=== PATIENT | female | born 1955 | race Two or more races ===

== ENCOUNTER → 2021-05-22 12:55 | Outpatient (BNVA) | payer OTHER, SELFPAY | PROVIDERS: Visit Provider Psychiatry & Neurology Neurology | DX: R13.10 Dysphagia, unspecified (principal); R53.1 Weakness; R20.0 Anesthesia of skin | CPT/HCPCS: 99212 ==

== ENCOUNTER 2021-06-18 16:19 | Outpatient (REF) | payer OTHER, SELFPAY ==
--- NOTE | ~2021-06-18 | MR_ITS ---
EXAMINATION: MRI OF THE BRAIN WITHOUT CONTRAST CLINICAL INFORMATION: History of MS and stroke. COMPARISON: There are no prior studies available for comparison at time of dictation.. TECHNIQUE: MRI of the brain was obtained using routine sequences without contrast. FINDINGS: No diffusion abnormalities are identified to suggest an acute or subacute infarct. No mass effect or midline shift is seen. The ventricles and sulci are mildly commensurately prominent consistent with diffuse volume loss. There are a few scattered foci of hyperintense T2 and FLAIR signal in the periventricular and subcortical white matter which are nonspecific, but are most consistent with chronic microvascular ischemic changes. Demyelination, sequelae of vasculitis or migraine cannot excluded in the correct clinical setting. The corpus callosum has good volume. No extra-axial fluid collections are seen. The brainstem and cerebellum are normal. No pathologic magnetic susceptibility artifact is identified on the gradient refocused acquisition. The craniovertebral junction, marrow signal, and midline structures are normal. There is hyperostosis frontalis interna. The major intracranial flow-voids at the level of the [place] are preserved. There are mildly prominent lymph nodes bilaterally in the neck, which are nonspecific The dural venous sinus flow-voids are maintained. The mastoid air cells are well-aerated. There is mild mucoperiosteal thickening the anterior ethmoid sinuses. MR/MR head/brain wo con IMPRESSION: 1. There are no acute bleeds or territorial infarcts. No masses are demonstrated. 2. There is diffuse volume loss and there are white matter changes as described above..
== END 2021-06-18 16:20 | disposition home or self-care (01) ==
LOC: HO.MRI 16:19
PROVIDERS: Visit Provider Psychiatry & Neurology Neurology
DX: R13.10 Dysphagia, unspecified (principal); R20.0 Anesthesia of skin; R53.1 Weakness
CPT/HCPCS: 70551

== ENCOUNTER 2021-11-28 11:48 | Outpatient (REF) | payer OTHER, SELFPAY ==
--- NOTE | 2021-11-28 08:00 | EMG_ITS ---
Bilateral median and ulnar motor and sensory studies were performed. Bilateral radial sensory studies were performed and paraspinal muscles were tested. IMPRESSION: Mild to moderate bilateral median neuropathy across carpal tunnel. MD KYLE Henao/SONNY / [id number]
== END 2021-11-28 11:49 | disposition home or self-care (01) ==
LOC: HO.NEURO 11:48
PROVIDERS: Visit Provider Psychiatry & Neurology Neurology
DX: R20.0 Anesthesia of skin (principal)
CPT/HCPCS: 95886; 95911

== ENCOUNTER → 2022-03-31 13:30 | Outpatient (BNVA) | payer OTHER, SELFPAY | PROVIDERS: Visit Provider Psychiatry & Neurology Neurology | DX: G43.709 Chronic migraine without aura, not intractable, without status migrainosus (principal); G56.00 Carpal tunnel syndrome, unspecified upper limb | CPT/HCPCS: 99212 ==

== ENCOUNTER → 2022-07-21 09:18 | Outpatient (BNVA) | payer OTHER, SELFPAY | PROVIDERS: Visit Provider Nurse Practitioner Family | DX: G43.709 Chronic migraine without aura, not intractable, without status migrainosus (principal); G56.00 Carpal tunnel syndrome, unspecified upper limb | CPT/HCPCS: 99212 ==

== ENCOUNTER 2022-11-04 14:40 | Outpatient (AMB) | payer OTHER, SELFPAY ==
--- NOTE | 2022-11-04 14:43 | MHC.OFFVIS ---
Intake Vital Signs 11/04/22 14:45 Height 4 ft 11 in Weight 152 lb BMI 30.7 BP 114/78 Blood Pressure Location Rt brachial Position Sitting Pulse 78 Pulse Source Pulse Oximeter Intake Visit Reasons: 3m follow up headache-Confirmed Intake Note: Patient presents for 3 month follow up headache. Patient states. I'm not sleeping at all,I think I need a sleep study because i cant sleep. Allergies Sulfa (Sulfonamide Antibiotics) Allergy (Severe, Verified 11/04/22 14:46) Anaphylaxis Penicillins Allergy (Mild, Verified 11/04/22 14:46) Anaphylaxis Medication List - Last Reconciled 11/04/22 by PENG Thapa albuterol sulfate 90 mcg/actuation 2 puffs inhalation Q6H PRN albuterol sulfate 90 mcg/actuation (Ventolin HFA) 2 puffs inhalation Q6H PRN amitriptyline 10 - 20 mg (1 - 2 x 10 mg) PO BEDTIME 30 days blood sugar diagnostic (Freestyle [employer] strips) As directed cetirizine 10 mg PO diclofenac sodium 1% grams topical dicyclomine 20 mg PO BID PRN duloxetine 60 mg PO DAILY duloxetine 30 mg PO DAILY glimepiride 4 mg PO DAILY insulin glargine (Lantus Solostar U-100 Insulin) units subcut lancets (FreeStyle Lancets) As directed losartan 25 mg PO DAILY magnesium oxide 400 mg PO BEDTIME 30 days omeprazole 20 mg PO BID pen needle, diabetic (BD Ultra-Fine Short Pen Needle) As directed riboflavin (vitamin B2) 400 mg PO DAILY 30 days sumatriptan succinate 50 - 100 mg orally at onset of headache, may repeat in 2 hrs PRN; max 2 tabs per day or 4 tabs/week (may take with Tylenol) 30 days tizanidine 2 mg PO TID PRN [wrist splints As directed] HPI HPI Comments History of Present Illness Details 67-yr-old female presents for f/u visit. Pt reports that she is having difficulty sleeping. She reports difficulty sleeping, snoring, and excessive daytime sleepiness. She is interested in having a sleep study. She continues to have carpal tunnel syndrome- she never rec'd wrist splints. She continues to have some headaches and muscle tension. [facility] Medical History Carpal tunnel syndrome Chronic migraine without aura, not intractable Dysphagia Hearing loss Lumbar spondylosis Numbness Stroke Weakness Surgical History H/O: H/O shoulder surgery H/O breast surgery H/O hernia repair Social History Alcohol intake: never Patient Tobacco Use Status: Current everyday Tobacco user Review of Systems Const All systems reviewed & are unremarkable except as noted in HPI and below Physical Exam Vital Signs: Last Vital Signs Pulse 78 11/04/22 14:45 BP 114/78 11/04/22 14:45 BMI result Body Mass Index 30.7 Const General: cooperative and no acute distress Orientation/consciousness: patient oriented x3 HEENT Head: Yes normocephalic Resp Effort & Inspection: normal respiratory effort and able to speak in complete sentences Neuro General: patient oriented x3, gait normal and CN's II-XI intact bilaterally Cognition (Neuro): normal cognition Motor exam (neuro): 5/5 motor strength present throughout Psych Appearance: grossly normal Mental Status: mental status grossly normal Speech and movement: Normal speech and movement present Affect: normal affect Attitude: cooperative Thought process: Normal thought process present Thought content: Normal thought content present Insight: Good insight present (Psych) Judgement: Good judgement present (Psych) Assessment & Plan Assessment & Plan (1) Snoring: Code(s): R06.83 - Snoring (2) Excessive daytime sleepiness: Code(s): G47.19 - Other hypersomnia (3) Sleep difficulties: Code(s): G47.9 - Sleep disorder, unspecified (4) Chronic migraine without aura, not intractable: Code(s): G43.709 - Chronic migraine without aura, not intractable, without status migrainosus (5) Carpal tunnel syndrome: Code(s): G56.00 - Carpal tunnel syndrome, unspecified upper limb Plan Pt is advised to undergo in-lab PSG to assess for sleep apnea- pt states she is unable to do HST on her own. For migraine prevention: Trial Cyclobenzaprine prn. Amitriptyline 10-20mg qhs. Riboflavin 400mg qam Magnesium 400 mg qhs Previous migraine tx trials: Gabapentin- does not help headaches Migraine tx contraindications: BBs d/t symptomatic asthma dx. For acute migraine tx: Sumatriptan 100mg tab prn. For carpal tunnel syndrome: Again try wrist splints- order printed again for pt to bring to medical supply store. Monitor dysphagia clinically. Work-up has been unremarkable. f/u in 3-4 months or sooner prn. Orders: Orders RT PSG in-lab sleep study 11/04/22 R06.83 - Snoring, G47.9 - Sleep disorder, unspecified, G47.19 - Other hypersomnia Medications: New cyclobenzaprine 10 mg PO BID PRN 60 tabs 1RF muscle spasm 30 days Changed From [wrist splints] As directed 2 ea 0RF carpal tunnel syndrome Bilateral To [wrist splints] As directed 2 ea 0RF carpal tunnel syndrome Bilateral Coding Level of Care Code Est Pt Level 4 (96242) Diagnoses Snoring R06.83 Excessive daytime sleepiness G47.19 Sleep difficulties G47.9 Chronic migraine without aura, not intractable G43.709 Carpal tunnel syndrome G56.00
[2022-11-04 14:45] VITALS: BP 114/78; PULSE 78; BMI 30.7
== END 2022-11-04 15:19 | disposition home or self-care (01) ==
PROVIDERS: Visit Provider Nurse Practitioner Family
DX: R06.83 Snoring (principal); G47.19 Other hypersomnia; G47.9 Sleep disorder, unspecified; G43.709 Chronic migraine without aura, not intractable, without status migrainosus; G56.00 Carpal tunnel syndrome, unspecified upper limb
CPT/HCPCS: 99214

== ENCOUNTER → 2022-11-04 14:40 | Outpatient (BNVA) | payer OTHER, SELFPAY | PROVIDERS: Visit Provider Nurse Practitioner Family | DX: R06.83 Snoring (principal); G47.9 Sleep disorder, unspecified; G47.19 Other hypersomnia; G56.03 Carpal tunnel syndrome, bilateral upper limbs; G43.709 Chronic migraine without aura, not intractable, without status migrainosus | CPT/HCPCS: 99212 ==

== ENCOUNTER → 2022-12-11 19:30 | Outpatient (REF) | payer OTHER, SELFPAY | LOC: HO.SL 19:30 | PROVIDERS: Visit Provider Nurse Practitioner Family | DX: G47.9 Sleep disorder, unspecified (principal); G47.19 Other hypersomnia; R06.83 Snoring | CPT/HCPCS: 95810 ==

== ENCOUNTER → 2022-12-11 22:32 | Outpatient (BNV) | payer OTHER, SELFPAY | PROVIDERS: Visit Provider Psychiatry & Neurology Neurology | DX: R06.83 Snoring (principal); G47.61 Periodic limb movement disorder | CPT/HCPCS: 95810 ==

== ENCOUNTER 2023-11-20 11:38 | Outpatient (AMB) | payer OTHER, SELFPAY ==
--- NOTE | 2023-11-20 11:38 | A.OFFVIS_ITS ---
Vital Signs 11/20/23 11:40 Height 4 ft 10 in Weight 140 lb BMI 29.3 BP 120/72 Blood Pressure Location Rt brachial Position Sitting Intake Visit Reasons: Follow Up Intake Note: Patient presents for follow up. headaches are worst since falling down in september when she was moving to a new apartment. she stated she hit her the back of her head and now has a lot of dizziness. Allergies Sulfa (Sulfonamide Antibiotics) Allergy (Severe, Verified 11/20/23 11:44) Anaphylaxis Penicillins Allergy (Mild, Verified 11/20/23 11:44) Anaphylaxis Medication List - Last Reconciled 11/20/23 by PENG Thapa albuterol sulfate 90 mcg/actuation 2 puffs inhalation Q6H PRN albuterol sulfate 90 mcg/actuation (Ventolin HFA) 2 puffs inhalation Q6H PRN amitriptyline 10 - 20 mg (1 - 2 x 10 mg) PO BEDTIME 30 days blood sugar diagnostic (Freestyle [employer] strips) As directed cetirizine 10 mg PO cyclobenzaprine 10 mg PO BID PRN 30 days diclofenac sodium 1% grams topical dicyclomine 20 mg PO BID PRN duloxetine 60 mg PO DAILY duloxetine 30 mg PO DAILY gabapentin 300 mg PO BEDTIME 30 days glimepiride 4 mg PO DAILY insulin glargine (Lantus Solostar U-100 Insulin) units subcut lancets (FreeStyle Lancets) As directed losartan 25 mg PO DAILY magnesium oxide 400 mg PO BEDTIME 30 days omeprazole 20 mg PO BID pen needle, diabetic (BD Ultra-Fine Short Pen Needle) As directed riboflavin (vitamin B2) 400 mg PO DAILY 30 days sumatriptan succinate 50 - 100 mg orally at onset of headache, may repeat in 2 hrs PRN; max 2 tabs per day or 4 tabs/week (may take with Tylenol) 30 days [wrist splints As directed] HPI Comments Details: 68-yr-old female presents for f/u visit after 1 yr. Pt accompanied by her family. Reviewed in-lab PSG- Dec 2022- no evidnece of sleep apnea. Mild PLMS w/ arousals. Pt states she has mild RLS s/s, but is more worried about a recent fall she hgad. Pt reports she had a fall ~ 2 months ago, she fell backwards while trying to adjust a bureau. She fell straight back and hit elvin back of her head. She immediately had headache, dizziness, some nausea, and low back pain. She is not sure if she had LOC. She did not seek medical attention. Since, she has continued to have headaches, dizziness, and low back pain. She is using the sumatriptan with effect. The dizziness is room spinning dizziness, triggered by rolling over in bed and getting up. She feels her neck is sore and a bit inflamed. Her low back is still sore and has some coldness and pain radiating down the LLE. [facility] Medical History Carpal tunnel syndrome Chronic migraine without aura, not intractable Dysphagia Hearing loss Lumbar spondylosis Numbness Stroke Weakness Surgical History H/O: H/O shoulder surgery H/O breast surgery H/O hernia repair Social History Alcohol intake: never Patient Tobacco Use Status: Current everyday Tobacco user Physical Exam Vital Signs: Last Vital Signs BP 120/72 11/20/23 11:40 BMI result Body Mass Index 29.3 Const General: cooperative and no acute distress Orientation/consciousness: patient oriented x3 Resp Effort & Inspection: normal respiratory effort and able to speak in complete sentences Neuro Other: EOM intact but makes pt feel dizzy. Bilateral posterior cervical tightness and tightness Cervical ROM: slightly limited Left Spurling: elicits posterior and left upper trap discomfort Right Spurling: elicits posterior and left upper trap discomfort Diffuse paraspinal lumbar tightness and tenderness Slow to stand, steady gait General: patient oriented x3 Cranial nerves: Yes CN's II-XII intact bilaterally Cognition (Neuro): normal cognition Deep tendon reflexes (DTR's): Right triceps reflex intensity grade: 2+, Left triceps reflex intensity grade: 2+, Rt Biceps (C5, C6): 2+, Left biceps reflex intensity grade: 2+, Right brachioradialis reflex intensity grade: 2+, Left brachioradialis reflex intensity grade: 2+, Right patellar reflex intensity grade: 2+ and Left patellar reflex intensity grade: 2+ Coordination: [id number] test normal Romberg Test: Negative Psych Appearance: grossly normal Mental Status: mental status grossly normal Speech and movement: Normal speech and movement present Affect: normal affect Attitude: cooperative Assessment & Plan Assessment & Plan (1) Concussion: Comment: s/p fall at home, fell backwards w/ + occipital region head strike w/o known LOC sttaus. Code(s): S06.0XAA - Concussion with loss of consciousness status unknown, initial encounter Category: Medical (2) Vertigo: Code(s): R42 - Dizziness and giddiness Category: Medical (3) Cervicalgia: Code(s): M54.2 - Cervicalgia Category: Medical (4) Chronic migraine without aura, not intractable: Code(s): G43.709 - Chronic migraine without aura, not intractable, without status migrainosus Category: Medical (5) Lumbar spondylosis: Code(s): M47.816 - Spondylosis without myelopathy or radiculopathy, lumbar region Category: Medical Plan For concussion w/ positional vertigo, increased neck pain, and low back pain: Exam is reassuring- no focal neuro deficits. Vestibular eval & tx- order given to pt. Resume Cyclobenzaprine 10mg prn muscle spasm. Resume diclofenac gel prn muscle spasm/pain. OTC warm packs x's 20 minutes prn. Continue current migraine tx regimen. Future considerations: f/u imaging, PT for low back pain. For migraine prevention: Amitriptyline 10-20mg qhs. Riboflavin 400mg qam Magnesium 400 mg qhs Previous migraine tx trials: Gabapentin- did not help headaches Migraine tx contraindications: BBs d/t symptomatic asthma dx. ? For acute migraine tx: Sumatriptan 100mg tab prn. ? For carpal tunnel syndrome: Wrist splints- order printed again for pt to bring to [facility]. ? ? f/u in 6 months or sooner prn. Orders: Orders PT Evaluation and Treatment Today M54.2 - Cervicalgia, R42 - Dizziness and giddiness Medications: Changed From diclofenac sodium 1% topical To diclofenac sodium 1% 4 grams topical QID 30 days PRN 100 grams 3RF muscle spasm/pain Refilled sumatriptan succinate (0.5 - 1 x 100 mg) 50 - 100 mg orally at onset of headache, may repeat in 2 hrs PRN; max 2 tabs per day or 4 tabs/week (may take with Tylenol) 30 days 14 tabs 6RF migraine headache riboflavin (vitamin B2) 400 mg PO DAILY 30 days 30 tabs 6RF magnesium oxide may hold for loose stools 400 mg PO BEDTIME 30 days 30 tabs 6RF amitriptyline 10 - 20 mg (1 - 2 x 10 mg) PO BEDTIME 30 days 30 tabs 3RF cyclobenzaprine 10 mg PO BID 30 days PRN 60 tabs 1RF muscle spasm Coding Level of Care Code Est Pt Level 4 (12255) Diagnoses Concussion S06.0XAA Vertigo R42 Cervicalgia M54.2 Chronic migraine without aura, not intractable G43.709 Lumbar spondylosis M47.816
[2023-11-20 11:40] VITALS: BP 120/72; BMI 29.3
== END 2023-11-20 12:25 | disposition home or self-care (01) ==
PROVIDERS: Visit Provider Nurse Practitioner Family
DX: S06.0XAA Concussion with loss of consciousness status unknown, initial encounter (principal); R42 Dizziness and giddiness; M54.2 Cervicalgia; G43.709 Chronic migraine without aura, not intractable, without status migrainosus; M47.816 Spondylosis without myelopathy or radiculopathy, lumbar region
CPT/HCPCS: 99214

== ENCOUNTER → 2023-11-20 11:38 | Outpatient (BNVA) | payer OTHER, SELFPAY | PROVIDERS: Visit Provider Nurse Practitioner Family | DX: G43.709 Chronic migraine without aura, not intractable, without status migrainosus (principal); R42 Dizziness and giddiness; M54.2 Cervicalgia; M47.816 Spondylosis without myelopathy or radiculopathy, lumbar region; S06.0XAD Concussion with loss of consciousness status unknown, subsequent encounter; W19.XXXD Unspecified fall, subsequent encounter | CPT/HCPCS: 99212 ==

== ENCOUNTER 2024-05-23 10:31 | Outpatient (AMB) | payer OTHER, SELFPAY ==
[2024-05-23 10:40] VITALS: BP 130/80; PULSE 82; O2SAT 96
--- NOTE | 2024-05-23 10:40 | A.OFFVIS_ITS ---
Vital Signs 05/23/24 10:40 Weight 143 lb BP 130/80 Blood Pressure Location Lt brachial Position Sitting Pulse 82 Pulse Source Pulse Oximeter Pulse Oximetry (%) 96 Oxygen Delivery Method Room Air Intake Visit Reasons: 4 mnts f/u appt Intake Note: Patient following referred to [facility] for PT. orders sent 11/24/23 successfully called for notes and they have no record of patient. called patient no respsonse [facility] Integrated Circuit Design Engineer Required: Yes Integrated Circuit Design Engineer Services: Integrated Circuit Design Engineer Present Integrated Circuit Design Engineer Name: Tammie [id number] Accompanied by: Self / Same As Patient Allergies Sulfa (Sulfonamide Antibiotics) Allergy (Severe, Verified 05/23/24 10:41) Anaphylaxis Penicillins Allergy (Mild, Verified 05/23/24 10:41) Anaphylaxis Medication List - Last Reconciled 05/23/24 by PENG Thapa albuterol sulfate 90 mcg/actuation 2 puffs inhalation Q6H PRN albuterol sulfate 90 mcg/actuation (Ventolin HFA) 2 puffs inhalation Q6H PRN amitriptyline 10 - 20 mg (1 - 2 x 10 mg) PO BEDTIME 30 days blood sugar diagnostic (Freestyle In[employer]x strips) As directed cetirizine 10 mg PO cyclobenzaprine 10 mg PO BID PRN 30 days diclofenac sodium 1% 4 grams topical QID PRN 30 days dicyclomine 20 mg PO BID PRN duloxetine 60 mg PO DAILY duloxetine 30 mg PO DAILY gabapentin 300 mg PO BEDTIME 30 days glimepiride 4 mg PO DAILY insulin glargine (Lantus Solostar U-100 Insulin) units subcut lancets (FreeStyle Lancets) As directed losartan 25 mg PO DAILY magnesium oxide 400 mg PO BEDTIME 30 days omeprazole 20 mg PO BID pen needle, diabetic (BD Ultra-Fine Short Pen Needle) As directed riboflavin (vitamin B2) 400 mg PO DAILY 30 days sumatriptan succinate 50 - 100 mg orally at onset of headache, may repeat in 2 hrs PRN; max 2 tabs per day or 4 tabs/week (may take with Tylenol) 30 days [wrist splints As directed] HPI Comments Details: History of Present Illness The patient is a 68-year-old female presenting with postconcussive headache and dizziness. Dizziness symptoms started after the previous fall, but began to worsen 15 days ago, linked with positional changes. Dizziness described as spinning sensation. She has continued to have headaches since the previous fall back in the fall of 2023. Sleep disruption with night-time amitriptyline use. No recent MRI, inquiry about vestibular therapy. Reports blood pressure fluctuations, typically high when headaches worse. Throat irritation/dryness potentially medication-related. History of pancreatitis, but current treatments deemed non-aggravating. Review of Systems - Neurological: Reports dizziness with positional change, sleep disruptions. - Cardiovascular: Reports fluctuations in blood pressure. - Gastrointestinal: Reports throat irritation/dryness potentially due to medication. 11/20/2023, previous HPI: In-lab PSG- Dec 2022- no evidnece of sleep apnea. Mild PLMS w/ arousals. Pt states she has mild RLS s/s, but is more worried about a recent fall she hgad. Pt reports she had a fall ~ 2 months ago, she fell backwards while trying to adjust a bureau. She fell straight back and hit the back of her head. She immediately had headache, dizziness, some nausea, and low back pain. She is not sure if she had LOC. She did not seek medical attention. Since, she has continued to have headaches, dizziness, and low back pain. She is using the sumatriptan with effect. The dizziness is room spinning dizziness, triggered by rolling over in bed and getting up. She feels her neck is sore and a bit inflamed. Her low back is still sore and has some coldness and pain radiating down the LLE. [facility] Medical History (Reviewed 07/21/22 @ 09:48 by Nadiya Spears [facility] [address]) Carpal tunnel syndrome Chronic migraine without aura, not intractable Dysphagia Hearing loss Lumbar spondylosis Numbness Stroke Weakness Surgical History H/O: H/O shoulder surgery H/O breast surgery H/O hernia repair Social History Alcohol intake: never Patient Tobacco Use Status: Current everyday Tobacco user Physical Exam Vital Signs: Last Vital Signs Pulse 82 05/23/24 10:40 BP 130/80 05/23/24 10:40 Pulse Ox 96 05/23/24 10:40 Oxygen Delivery Method Room Air 05/23/24 10:40 Const General: cooperative and no acute distress Orientation/consciousness: patient oriented x3 Resp Effort & Inspection: normal respiratory effort and able to speak in complete s entences Neuro Other: EOM intact but makes pt feel dizzy. Bilateral posterior cervical tightness and tightness Cervical ROM: slightly limited Left Spurling: elicits posterior and left upper trap discomfort Right Spurling: elicits posterior and left upper trap discomfort Diffuse paraspinal lumbar tightness and tenderness Slow to stand, steady gait General: patient oriented x3 Cranial nerves: Yes CN's II-XII intact bilaterally Cognition (Neuro): normal cognition Deep tendon reflexes (DTR's): Right triceps reflex intensity grade: 2+, Left triceps reflex intensity grade: 2+, Rt Biceps (C5, C6): 2+, Left biceps reflex intensity grade: 2+, Right brachioradialis reflex intensity grade: 2+, Left brachioradialis reflex intensity grade: 2+, Right patellar reflex intensity grade: 2+ and Left patellar reflex intensity grade: 2+ Coordination: [id number] test normal Romberg Test: Negative Psych Appearance: grossly normal Mental Status: mental status grossly normal Speech and movement: Normal speech and movement present Affect: normal affect Attitude: cooperative Assessment & Plan Assessment & Plan (1) Postconcussive syndrome: Comment: s/p fall at home, fell backwards w/ + occipital region head strike w/o known LOC status. Code(s): F07.81 - Postconcussional syndrome Category: Medical (2) Concussion: Comment: s/p fall at home, fell backwards w/ + occipital region head strike w/o known LOC status. Code(s): S06.0XAA - Concussion with loss of consciousness status unknown, initial encounter Category: Medical (3) Vertigo: Code(s): R42 - Dizziness and giddiness Category: Medical (4) Cervicalgia: Code(s): M54.2 - Cervicalgia Category: Medical (5) Chronic migraine without aura, not intractable: Code(s): G43.709 - Chronic migraine without aura, not intractable, without status migrainosus Category: Medical (6) Lumbar spondylosis: Code(s): M47.816 - Spondylosis without myelopathy or radiculopathy, lumbar region Category: Medical Plan Discussion Notes I discussed with the patient her symptoms of postconcussive headache and dizziness. We reviewed her concerns regarding positional dizziness, disrupted sleep patterns, and high blood pressure. I recommended an MRI to assess potential changes since the previous scan three years ago, as she has worsening headache and dizziness status post fall with head strike in the fall of 2023. Vestibular therapy for vertigo was discussed, including the possibility of initial symptom worsening. I reviewed her medication regimen, including the use of amitriptyline and sumatriptan, and the potential irritating effect of amitriptyline on the throat. We also discussed the potential for using monthly injections for migraine management. The patient advised on possible medication i nteractions and the continuing management of diabetes and muscle spasm. Patient was informed and verbally consented to the use of an ambient scribe for clinic note documentation during this visit. Plan A repeat MRI is planned to assess any changes from the prior scan. Vestibular therapy suggested for vertigo, with expected initial symptom worsening. Continue amitriptyline and sumatriptan for headache management. Consideration for monthly migraine injections once authorized. Blood pressure control to be monitored, avoiding hypotensive events. Review medication interactions to address throat i rritation. Follow-up in four months. Patient instructions For postconcussive syndrome w/ positional vertigo, increased neck pain, and low back pain: Vestibular eval & tx. Cyclobenzaprine 10mg prn muscle spasm. Diclofenac gel prn muscle spasm/pain. OTC warm packs x's 20 minutes prn. Continue current migraine tx regimen. Future considerations: f/u imaging, PT for low back pain. For migraine prevention: Amitriptyline 10-20mg qhs- can not increase further due to patient already has dry throat. Riboflavin 400mg qam Magnesium 400 mg qhs Start Ajovy 225mg/1.5ml autoinjector- injection 225mg subcutaneously once a month. Potential adverse effects of Ajovy include but are not limited to injection site reactions. Pt advised Ajovy will likely require insurance prior authorization. Ajovy should be refrigerated until 1 hr prior use. Once approved and available patient would like in office injection training . Previous migraine tx trials: Gabapentin- did not help headaches. Migraine tx contraindications: BBs d/t symptomatic asthma dx. ? For acute migraine tx: Sumatriptan 100mg tab prn. ? For carpal tunnel syndrome: Wrist splints- order printed again for pt to bring to [employer] [facility] store. ? Will follow-up upon review of above and patient to follow-up in clinic in 6 months or sooner prn. Orders: Orders MR head/brain wo con 05/23/24 R51.9 - Headache, unspecified, S06.0XAA - Concussion with loss of consciousness status unknown, initial encounter, R42 - Dizziness and giddiness Medications: New pregabalin 75 mg PO BID fremanezumab-[facility] (Ajovy) administer 225mg sc q month 225 mg (1.5 mL) subcut ONCE 1.5 mL 6RF 30 days Discontinued gabapentin Discontinued Reason: Patient no longer taking 300 mg PO BEDTIME 30 days 30 caps 6RF Coding Level of Care Code Est Pt Level 4 (15549) Diagnoses Postconcussive syndrome F07.81 Concussion S06.0XAA Vertigo R42 Cervicalgia M54.2 Chronic migraine without aura, not intractable G43.709 Lumbar spondylosis M47.816
--- OUTSIDE RECORDS SUMMARY | 2024-05-23 12:22 | XMS_ITS | Patient Health Record ---
Author Organization [facility] [place] Address [address] [place] [address] Care Team Providers Care Jewelry Consultant Name Role Phone Raymundo Berman Unavailable [phone] Allergies Allergen (clinical drug ingredient) Drug/Non Drug Allergy documented on EMR Reaction Allergy Type Onset Date Status Penicillin Unknown Drug Allergy Active Substance with sulfonamide structure and antibacterial mechanism of action (substance) Sulfa Antibiotics Unknown Drug Allergy Active Reason For Referral No Information Medications Medication SIG (Take, Route, Frequency, Duration) Notes Start Date End Date Status amLODIPine Besylate 10 MG Oral for 90 Days Active tiZANidine HCl 2 MG Oral for 15 Days Active Dicyclomine HCl 20 MG Oral for 7 Days Active Pregabalin 75 MG TAKE 1 CAPSULE BY [facility] TWICE DAILY Oral for 30 Days Active DULoxetine HCl 60 MG Oral for 30 Days Active Magnesium Oxide -Mg Supplement 400 (240 Mg) MG Oral for 30 Days Active Fluticasone-Salmeterol 100-50 MCG/ACT Inhalation for 90 Days Act jayme Amitriptyline HCl 10 MG TAKE 1 TO 2 TABL ETS BY MOUTH AT BEDTIME DIRECTED Oral for 15 Days Active Lantus SoloStar 100 UNIT/ML Subcutaneous for 53 Days Act jayme Vitamin B50 Complex 08/26/2023 Active NovoLOG 100 UNIT/ML Injection for 30 Days Active Extra Depth Orthopedic Shoes, (1) Pair With (3) Pair Custom Heat Molded Multidensity Innersoles Dx: NIDDM/PVD(E11.51), Hammertoe Foot Deformity(M20.41,M20.42) , Preulcerative Skin Lesion(s)(L85.1) Wear Daily for 365 days Active Omeprazole 20 MG Oral for 90 Days Active traZODone HCl 100 MG Oral for 30 Days Not-Taking Ramelteon 8 MG TAKE 1 TABLET BY KOFI TH EVERY NIGHT AT BEDTIME Oral for 30 Days Active Gabapentin 300 MG TAKE 1 CAPSULE BY MO UTH AT BEDTIME Oral for 30 Days Not-Taking SUMAtriptan Succinate 100 MG Oral for 24 Days Active Acetaminophen 325 MG TAKE 2 TABLETS BY M OUTH EVERY 6 HOURS NEEDED FOR PAIN Oral for 6 Days Active Zolpidem Tartrate 10 MG Oral for 30 Days Active Albuterol Sulfate HFA 108 (90 Base) MCG/ACT Inhalation for 16 Days Active Wixela Inhub 100-50 MCG/ACT Inhalation for 90 Days Activ e Social History Tobacco Use: Social History Observation Description Date Details (start date - stop date) Current Smoker NA - NA Tobacco Use/Smoking Question Answer Notes Are you a: current smoker How many cigarettes a day do you smoke? 6-10 Alcohol Screen Question Answer Notes Did you have a drink containing alcohol in the p ast year? No Points 0 Interpretation Negative Tobacco use other than smoking: Question Answer Notes Are you an other tobacco user? No Problems Problem Type SNOMED Code ICD Code Onset Dates Problem Status W/U Status Risk Notes Problem Acquired hammer toe of right foot (3614258765958 105) Other hammer toe(s) (acquired), right foot (M20.41) Active confirmed Response to treatment,I mprovement Problem Type 2 diabetes mellitus with peripheral angiopathy (600146222) Type 2 diabetes mellitus with diabetic peripheral angiopathy without gangrene (E11.51) Active confirmed Q7(A), Q8(2B), Q9(1B,2C) Problem Acquired hammer toe of left foot (1535161544079 103) Other hammer toe(s) (acquired), left foot (M20.42) Active confirmed Response to treatment,I mprovement Problem Plantar wart (65981042) Plantar wart (B07.0) Active confirmed Vital Signs Height 3lb99cy in 01/13/2024 Weight 149 lbs 01/13/2024 BMI 31.14 kg/m2 01/13/2024 Procedures Procedure Date Ordered Date Performed Result Body Sit e 05315-Inft Destruction, -09/28/2023 N/A 26653-Fgfo Destruction, 1-14 12/09/2023 N/A 37135-UIPIBEC NAIL, 6 OR MORE 01/13/2024 N/A 90339-Zdpl Destruction, 1-14 01/13/2024 N/A 30212-Tgapukvn Plate 01/13/2024 N/A 00379-FNJA SKIN LESIONS, 2 TO 4 01/13/2024 N/A 35505-OLQU SKIN LESIONS, 2 TO 4 11/02/2023 N/A 33938-Gjio Destruction, 1-14 11/02/2023 N/A 03121-OCVIIGB NAIL, 6 OR MORE 11/02/2023 N/A 30715-GUUJ SKIN LESIONS, 2 TO 4 08/26/2023 N/A 66096-Agpx Destruction, 1-14 08/26/2023 N/A 70046-GBBWRPF NAIL, 6 OR MORE 08/26/2023 N/A Encounters Encounter Location Date Provider Diagnosis [address] [address] 08/26/2023 Raymundo Berman Type 2 diabetes mellitus with diabetic peripheral angiopathy without gangrene E11.51 ; Tinea unguium B35.1 ; Pain in right toe(s) M79.674 ; Pain in left toe(s) M79.675 ; Other hammer toe(s) (acquired), left foot M20.42 ; Right foot pain M79.671 ; Other hammer toe(s) (acquired), right foot M20.41 and Plantar wart B07.[address] [address] 09/28/2023 Raymundo Berman Right foot pain M79.671 and Plantar wart B07.[address] [address] 11/02/2023 Raymundo Berman Type 2 diabetes mellitus with diabetic peripheral angiopathy without gangrene E11.51 ; Tinea unguium B35.1 ; Pain in right toe(s) M79.674 ; Pain in left toe(s) M79.675 ; Right foot pain M79.671 ; Plantar wart B07.0 ; Other hammer toe(s) (acquired), right foot M20.41 and Other hammer toe(s) (acquired), left foot M20.42 [place] [id number] [address] 12/09/2023 Raymundo Berman Right foot pain M79.671 and Plantar wart B07.[address] [address] 01/13/2024 Raymundo Berman Type 2 diabetes mellitus with diabetic peripheral angiopathy without gangrene E11.51 ; Tinea unguium B35.1 ; Pain in right toe(s) M79.674 ; Pain in left toe(s) M79.675 ; Right foot pain M79.671 ; Plantar wart B07.0 and Ingrown nail L60.[address] [address] 02/22/2024 Raymundo Berman Assessments Encounter Date Diagnosis (ICD Code) Assessment Notes Treatment Notes Treatment Clinical Notes Section Notes 08/26/2023 Type 2 diabetes mellitus with diabetic peripheral angiopathy without gangrene (ICD-10 - E11.51) 09/28/2023 Plantar wart (ICD-10 - B07.0) 09/28/2023 Right foot pain (ICD-10 - M79.671) 11/02/2023 Tinea unguium (ICD-10 - B35.1) 11/02/2023 Type 2 diabetes mellitus with diabetic peripheral angiopathy without gangrene (ICD-10 - E11.51) Q7(A), Q8(2B), Q9(1B,2C) 12/09/2023 Plantar wart (ICD-10 - B07.0) 12/09/2023 Right foot pain (ICD-10 - M79.671) 01/13/2024 Tinea unguium (ICD-10 - B35.1) 01/13/2024 Type 2 diabetes mellitus with diabetic peripheral angiopathy without gangrene (ICD-10 - E11.51) Q7(A), Q8(2B), Q9(1B,2C) 11/02/2023 Pain in right toe(s) (ICD-10 - M79.674) 01/13/2024 Pain in right toe(s) (ICD-10 - M79.674) 08/26/2023 Tinea unguium (ICD-10 - B35.1) 01/13/2024 Pain in left toe(s) (ICD-10 - M79.675) 11/02/2023 Pain in left toe(s) (ICD-10 - M79.675) 08/26/2023 Pain in right toe(s) (ICD-10 - M79.674) 11/02/2023 Right foot pain (ICD-10 - M79.671) 08/26/2023 Pain in left toe(s) (ICD-10 - M79.675) 01/13/2024 Right foot pain (ICD-10 - M79.671) 08/26/2023 Other hammer toe(s) (acquired), left foot (ICD-10 - M20.42) 11/02/2023 Plantar wart (ICD-10 - B07.0) 01/13/2024 Plantar wart (ICD-10 - B07.0) 01/13/2024 Ingrown nail (ICD-10 - L60.0) 08/26/2023 Right foot pain (ICD-10 - M79.671) 11/02/2023 Other hammer toe(s) (acquired), right foot (ICD-10 - M20.41) Response to treatment,Impro vement 11/02/2023 Other hammer toe(s) (acquired), left foot (ICD-10 - M20.42) Response to treatment,Impro vement 08/26/2023 Plantar wart (ICD-10 - B07.0) 08/26/2023 Other hammer toe(s) (acquired), right foot (ICD-10 - M20.41) Patient Educated with: DIABETIC FOOT CARE INSTRUCTIONS.p df (DIABETIC FOOT CARE INSTRUCTIONS.p df) Plan Of Treatment Pending Test Test Name Order Date 29225-LASWUJQ NAIL, 6 OR MORE 04/20/2023 82002-LCBJKQO NAIL, 6 OR MORE 08/26/2023 58573-AOIPLZK NAIL, 6 OR MORE 11/02/2023 97330-KSFOQHG NAIL, 6 OR MORE 01/13/2024 02972-Vyuy Destruction, -01/13/2024 40982-Wkty Destruction, -11/02/2023 19773-Kksg Destruction, -12/09/2023 65405-Gola Destruction, -09/28/2023 04000-Mkfx Destruction, -08/26/2023 71549-Wypd Destruction, -04/20/2023 60659-Cepxmnuv Plate 04/20/2023 92676-Xrwnpsmn Plate 01/13/2024 68458-Uetfnqvv Plate Each Additional 05/2023 77519-EJYE SKIN LESIONS, 2 TO 4 04/20/19 02491-GRQE SKIN LESIONS, 2 TO 4 08/26/19 33490-ITYN SKIN LESIONS, 2 TO 4 11/02/19 82926-TTOI SKIN LESIONS, 2 TO 4 01/13/20 Next Appt Details Provider Name:Raymundo Berman , 05/25/2024 10:45:00 AM, [address] [address], [place], [address], Insurance Providers Payer Name Payer Address Payer Phone Subscriber Number Group Number Insured Name Patient Relationship to Insured Coverage Start Date Coverage End Date [facility] [employer] Claims [address] [place] [address] [id number] Ayaka Johnson Self - patient is the insured Medical (General) History Medical History History ICD Code Anxiety Arthritis asthma Back pain Depression Diabetic Fibromyalgia High blood pressure Chicken pox Joint implants/screws Bone implants/screws Surgical History Surgery Date(Month/Year) Breast Surgery 2023
--- OUTSIDE RECORDS SUMMARY | 2024-05-23 12:23 | XMS_ITS ---
Author Organization [facility] Address [address] [place] [address] Care Team Providers Care Live Source Operator Name Role Phone Raymundo Berman Unavailable [phone] Allergies Allergen (clinical drug ingredient) Drug/Non Drug Allergy documented on EMR Reaction Allergy Type Onset Date Status Penicillin Unknown Drug Allergy Active Substance with sulfonamide structure and antibacterial mechanism of action (substance) Sulfa Antibiotics Unknown Drug Allergy Active REASON FOR VISIT At Risk Footcare, Painful Nail(s) aggravated by shoes and causing difficulty standing/walking., Wart(s), Ingrown Nail Medications Medication SIG (Take, Route, Frequency, Duration) Notes Start Date End Date Status NovoLOG 100 UNIT/ML Injection for 30 Days Active Omeprazole 20 MG Oral for 90 Days Active Ramelteon 8 MG TAKE 1 TABLET BY KOFI TH EVERY NIGHT AT BEDTIME Oral for 30 Days Active SUMAtriptan Succinate 100 MG Oral for 24 Days Active Zolpidem Tartrate 10 MG Oral for 30 Days Active amLODIPine Besylate 10 MG Oral for 90 Days Active Dicyclomine HCl 20 MG Oral for 7 Days Active DULoxetine HCl 60 MG Oral for 30 Days Active Fluticasone-Salmeterol 100-50 MCG/ACT Inhalation for 90 Days Act jayme Lantus SoloStar 100 UNIT/ML Subcutaneous for 53 Days Act jayme Extra Depth Orthopedic Shoes, (1) Pair With (3) Pair Custom Heat Molded Multidensity Innersoles Dx: NIDDM/PVD(E11.51), Hammertoe Foot Deformity(M20.41,M20.42) , Preulcerative Skin Lesion(s)(L85.1) Wear Daily for 365 days Active traZODone HCl 100 MG Oral for 30 Days Not-Taking Gabapentin 300 MG TAKE 1 CAPSULE BY MO UTH AT BEDTIME Oral for 30 Days Not-Taking Acetaminophen 325 MG TAKE 2 TABLETS BY M OUTH EVERY 6 HOURS NEEDED FOR PAIN Oral for 6 Days Active Albuterol Sulfate HFA 108 (90 Base) MCG/ACT Inhalation for 16 Days Active tiZANidine HCl 2 MG Oral for 15 Days Active Pregabalin 75 MG TAKE 1 CAPSULE BY MO UTH TWICE DAILY Oral for 30 Days Active Magnesium Oxide -Mg Supplement 400 (240 Mg) MG Oral for 30 Days Active Amitriptyline HCl 10 MG TAKE 1 TO 2 TABL ETS BY MOUTH AT BEDTIME DIRECTED Oral for 15 Days Active Vitamin B50 Complex 08/26/2023 Active Wixela Inhub 100-50 MCG/ACT Inhalation for 90 Days Activ e Social History Tobacco Use: Social History Observation Description Date Details (start date - stop date) Current Smoker NA - NA Tobacco Use/Smoking Question Answer Notes Are you a: current smoker How many cigarettes a day do you smoke? 6-10 Tobacco use other than smoking: Question Answer Notes Are you an other tobacco user? No Vital Signs Height 9un75su in 01/13/2024 Weight 149 lbs 01/13/2024 BMI 31.14 kg/m2 01/13/2024 Procedures Procedure Date Ordered Date Performed Result Body Sit e 05634-JISVMJO NAIL, 6 OR MORE 01/13/2024 N/A 50319-Rsxe Destruction, 1-14 01/13/2024 N/A 04872-Ojginmpf Plate 01/13/2024 N/A 88268-ZBNI SKIN LESIONS, 2 TO 4 01/13/2024 N/A Encounters Encounter Location Date Provider Diagnosis [facility] [place] [address] [address] 01/13/2024 Raymundo Berman Type 2 diabetes mellitus with diabetic peripheral angiopathy without gangrene E11.51 ; Tinea unguium B35.1 ; Pain in right toe(s) M79.674 ; Pain in left toe(s) M79.675 ; Right foot pain M79.671 ; Plantar wart B07.0 and Ingrown nail L60.0 Assessments Encounter Date Diagnosis (ICD Code) Assessment Notes Treatment Notes Treatment Clinical Notes Section Notes 01/13/2024 Type 2 diabetes mellitus with diabetic peripheral angiopathy without gangrene (ICD-10 - E11.51) Q7(A), Q8(2B), Q9(1B,2C) 01/13/2024 Tinea unguium (ICD-10 - B35.1) 01/13/2024 Pain in right toe(s) (ICD-10 - M79.674) 01/13/2024 Pain in left toe(s) (ICD-10 - M79.675) 01/13/2024 Right foot pain (ICD-10 - M79.671) 01/13/2024 Plantar wart (ICD-10 - B07.0) 01/13/2024 Ingrown nail (ICD-10 - L60.0) Plan Of Treatment Pending Test Test Name Order Date 78789-JOEBDOX NAIL, 6 OR MORE 01/13/2024 49054-Blmu Destruction, 1-14 01/13/2024 44087-Aabhfyiu Plate 01/13/2024 88729-VLBZ SKIN LESIONS, 2 TO 4 01/13/20 24 Next Appt Details Follow Up: 5 Weeks, Reason: Provider Name:Raymundo Berman , 05/25/2024 10:45:00 AM, [address] [facility], [address], [place], [address], Procedure Notes * Category Sub-Category Detail Notes Wart Treatment Procedure Verruca, as desc ribed in exam, were debrided to pin- point bleeding margins with sterile 15 surgical blade, silver nitrate chemocautery applied, recomm. immune-boosting meds such as zinc, recomm. follow up with topical chemosurgical agents, Pt defers any other forms of tx - 85503 Nail Avulsion Procedure A fine sterile e levator was placed between the eponychium, nail fold, and nail plate to separate the structures. A sterile nail splitter, and/or sterile 316 blade, was then used to longitudinally section the nail along its entire length through the eponychium to the area under the nail fold. The offending portion of nail was from the nail bed with a rolling action and then removed with a hemostat. No underlying bone was identified. There was minimal bleeding as hemostasis was achieved through the temporary use of either a digital tourniquet or the aforementioned local with epinephrine. A bacitracin sterile dressing was applied. Local wound aftercare instructions were discussed and dispensed. The patient was informed of both conservative and future surgical procedures to prevent recurrence. Tylenol or Motrin was recommended for pain or discomfort (07703), DIABETES: Pt was advised as to the risk of delayed or nonhealing due to diabetes. Pt is to call the office with any questions, concerns, or complications Anesthesia was accomplished TOP ICALLY with Lidocaine Hydrochloride Jelly 2 percent Location Medial nail border, TA Debride Nail 6-10 Nail debridement Performance o f this nail treatment by a nonprofessional would put this patients foot and overall health at risk. Therefore, debridement to affected nail(s), as described in exam, was performed extensively to reduce/remove overall nail length, girth, thickness, subungual debris, and necrotic tissue, by manual and/or electrical means through the use of a nail nipper and/or dremel-type platen grinder, to a more viable healthy nail plate or bed tissue 6-10 nails in total. Silver nitrate was used for any petechial bleeding as necessary. Definitive antifungal treatment options, both pharmaceutical and surgical, have been reviewed and discussed with the patient. The patient solely prefers the use of intermittent/as needed professional debridement services for their nail condition and understands the need for additional periodic treatments to maintain effectiveness in symptomatic relief - 18220 Keratoma Treatment Parring or Cutting o f Benign Hyperkeratotic Lesion(s) (-56) 2-4 Lesions - The Benign hyperkeratotic lesions, ( 2) in total, locations as stated and described in exam, were pared, and/or cut utilizing a sterile 15 blade, tissue nippers, and/or power dremel instrumentation - 13929, Q8 Progress Notes * Ayaka NAVARRETEDOB:[birth year] (68 yo F)Acc No.[id number]:01/13/2024 Progress Notes Patient:?Ayaka NAVARRETE Provider:?Raymundo Berman DPM :1955???Age:68 Y???Sex:Female D ate:01/13/2024 Address:[address], [place] Subjective: * Chief Complaints: * ???At Risk FootcarePainful N ail(s) aggravated by shoes and causing difficulty standing/walking.Wart(s)Ingrown Nail * HPI: ???At Risk footcare:?Pt States Last PCP Visit:?Date?08/24/2023 * ROS:?General/Constitutional:?Nausea?denies.?Vomiting?denies.?Hunger Thirst?denies.?Loss appetite?denies.?Chills?denies.?Fatigue?denies.?Fever?denies.?Night Sweats?denies.?Unexplained weight loss?denies.?Unexplained weight gain?denies.?HEENTM:?Dentures?denies.?Dizziness?denies.?Glasses/contacts?admits.?Retinopathy?de nies.?Blurred/double vision?denies.?TMJ?denies.?Discharge/drainage?denies.?Implants?denies.?Sore throat?denies.?Dental implants?denies.?Hard of hearing ?denies.?Difficulty chewing/swallowing/speaking?denies.?Nose bleeds?denies.?Sore mouth?denies.?Respiratory:?On Oxygen?denies.?Pneumonia/pleurisy?denies.?Bronchitis?denies.?Emphysema?denies.?C oughing?denies.?Cough blood?denies.?Shortness of breath?denies.?Wheezing?denies.?Cardiovascular:?Pacemaker?denies.?MVP?denies.?WPW?denies.?CHF?denies.?Heart attack?denies.?Septal defect?denies.?Rapid beat?denies.?Chest pain ?denies.?Atrial Fib.?denies.?Murmur/Palpitations?denies.?Gastrointestinal:?Hemorrhoids?denies.?Stomach/Abdominal pain?denies.?Dark blood stool?denies.?Irritable bowel ?denies.?Constipation?denies.?Diarrhea?denies.?Hematology:?Swelling?denies.?Clots?denies.?Varicose Veins?denies.?Bruising?denies.?Bleeding problem?denies.?Genitourinary:?Blood urine?denies.?Frequent/Painfu/urination/bladder control?admits.?Kidney stones?denies.?Infection (UTI)?denies.?Nephropathy?denies.?sex trans dis (STD)?denies.?Prostate?denies.?Musculoskeletal:?Hammertoes?admits.?Bunions?denies.?Back Pain?denies.?Muscle Cramps/ Resting?denies.?Muscle cramps / walking?denies.?Generalized aches and pains?denies.?Weakness?denies.?Integ.:?Mccann?denies.?Scars?denies.?Corns/calluses?admits.?Ingrown nails?admits.?Painful nails?admits.?Open Sores?denies.?Rashes?denies.?Neurologic:?Difficulty sleeping?admits.?Brain disorder?denies.?Numbness?denies.?Balance trouble?denies.?Confusion?denies.?Fainting/blackouts?denies.?Tingling?denies.?Tr emors?denies.? * Medical History:? * Surgical History:?Breast [place] kristyn 2023 * Hospitalization/Major Diagno stic Procedure:?Denies Past Hospitalization * Family History:?Mother: dece ased, diagnosed with Other malignant neoplasm of unspecified site.?Father: .?Spouse: .?Children: diagnosed with Diabetic - NIDDM.? * Social History:?Tobacco Use:?Tobacco Use/Smoking?Are you a:?current smoker ?How many cigarettes a day do you smoke??6-10 ?Tobacco use other than smoking?Are you an other tobacco user??No * Medications:?TakingAcetamino phen 325 MG Tablet TAKE 2 TABLETS BY MOUTH EVERY 6 HOURS NEEDED FOR PAIN Oral Albuterol Sulfate HFA 108 (90 Base) MCG/ACT Aerosol Solution Inhalation amLODIPine Besylate 10 MG Tablet Oral Dicyclomine HCl 20 MG Tablet Oral DULoxetine HCl 60 MG Capsule Delayed Release Particles Oral Fluticasone- Salmeterol 100-50 MCG/ACT Aerosol Powder Breath Activated Inhalation Lantus SoloStar 100 UNIT/ML Solution Pen-injector Subcutaneous NovoLOG 100 UNIT/ML Solution Injection Omeprazole 20 MG Capsule Delayed Release Oral Ramelteon 8 MG Tablet TAKE 1 TABLET BY MOUTH EVERY NIGHT AT BEDTIME Oral SUMAtriptan Succinate 100 MG Tablet Oral Zolpidem Tartrate 10 MG Tablet Oral Wixela Inhub 100-50 MCG/ACT Aerosol Powder Breath Activated Inhalation tiZANidine HCl 2 MG Tablet Oral Pregabalin 75 MG Capsule TAKE 1 CAPSULE BY MOUTH TWICE DAILY Oral Magnesium Oxide -Mg Supplement 400 (240 Mg) MG Tablet Oral Amitriptyline HCl 10 MG Tablet TAKE 1 TO 2 TABLETS BY MOUTH AT BEDTIME DIRECTED Oral Vitamin B50 Complex Extra Depth Orthopedic Shoes, (1) Pair With (3) Pair Custom Heat Molded Multidensity Innersoles . Dx: NIDDM/PVD(E11.51), Hammertoe Foot Deformity(M20.41,M20.42), Preulcerative Skin Lesion(s)(L85.1) Wear Daily Taking Acetaminophen 325 MG Tablet TAKE 2 TABLETS BY MOUTH EVERY 6 HOURS NEEDED FOR PAIN Oral Taking Albuterol Sulfate HFA 108 (90 Base) MCG/ACT Aerosol Solution Inhalation Taking amLODIPine Besylate 10 MG Tablet Oral Taking Dicyclomine HCl 20 MG Tablet Oral Taking DULoxetine HCl 60 MG Capsule Delayed Release Particles Oral Taking Fluticasone-Salmeterol 100-50 MCG/ACT Aerosol Powder Breath Activated Inhalation Taking Lantus SoloStar 100 UNIT/ML Solution Pen-injector Subcutaneous Taking NovoLOG 100 UNIT/ML Solution Injection Taking Omeprazole 20 MG Capsule Delayed Release Oral Taking Ramelteon 8 MG Tablet TAKE 1 TABLET BY MOUTH EVERY NIGHT AT BEDTIME Oral Taking SUMAtriptan Succinate 100 MG Tablet Oral Taking Zolpidem Tartrate 10 MG Tablet Oral Taking Wixela Inhub 100-50 MCG/ACT Aerosol Powder Breath Activated Inhalation Taking tiZANidine HCl 2 MG Tablet Oral Taking Pregabalin 75 MG Capsule TAKE 1 CAPSULE BY MOUTH TWICE DAILY Oral Taking Magnesium Oxide -Mg Supplement 400 (240 Mg) MG Tablet Oral Taking Amitriptyline HCl 10 MG Tablet TAKE 1 TO 2 TABLETS BY MOUTH AT BEDTIME DIRECTED Oral Taking Vitamin B50 Complex Taking Extra Depth Orthopedic Shoes, (1) Pair With (3) Pair Custom Heat Molded Multidensity Innersoles . Dx: NIDDM/PVD(E11.51), Hammertoe Foot Deformity(M20.41,M20.42), Preulcerative Skin Lesion(s)(L85.1) Wear Daily Not-Taking/PRNtraZODone HCl 100 MG Tablet Oral Gabapentin 300 MG Capsule TAKE 1 CAPSULE BY MOUTH AT BEDTIME Oral Medication List reviewed and reconciled with the patientNot-Taking/PRN traZODone HCl 100 MG Tablet Oral Not-Taking/PRN Gabapentin 300 MG Capsule TAKE 1 CAPSULE BY MOUTH AT BEDTIME Oral Medication List reviewed and reconciled with the patient * Allergies:?PenicillinSulfa A ntibioticsyes[Allergies Verified] Objective: * Vitals:?Ht: 0bq86of, Wt:149, BMI:31.14, Shoe size: 6, BS: not taken, Ht-cm: 147.32 cm, Wt-k.59 kg. * Examination: ???Vascular: ?DP PULSES(B):?1/4, B/L.?PT PULSES(B):? 0/4, B/L.?CAPILLARY FILL TIME:? delayed, all digits, B/L.?TROPHIC CONDITION-TEXTURE/ELASTICITY/TURGOR/HAIR GROWTH(B):? decreased, with sparse to absent hair growth, B/L.?TEMPERTURE GRADIENT(C):? decreased, cool to cool, proximal to distal, B/L.?PIGMENTATION:?mottled, B/L.?EDEMA(C):?absent, B/L.?CLAUDICATION(C):?denies, B/L.?REST PAIN:?denies, B/L.?Nails: ?NAILS are:?Elongated, overgrown, dystrophic, lytic, greater than 3mm thick, discolored and friable with crumbly malodorous subungual debris, with pain on palpation , 1-5 B/L.?Dermatologic: ?SKIN FINDINGS:?Skin exam reveals Keratotic lesion(s) located at , Plantar, Heel(s) , B/L.?VERRUCA:?Reveals a Single , multi-loculated , mosaic-patterned, round, raised, flat-topped, petechial bleeding papule(s), with cauliflower appearance and interruption of skin lines, pain to lateral compression, and size estimated at 9mm diameter , plantar Forefoot , RIGHT.?Ingrown Nail: ?INSPECTION:?Reveals nail incurvation, pain on palpation, groove hypertrophy, Medial nail border, TA.? Assessment: * Assessment: 1.?Tinea unguium - B35.1???2 .?Type 2 diabetes mellitus with diabetic peripheral angiopathy without gangrene - E11.51 (Primary)???Notes :Q7(A), Q8(2B), Q9(1B,2C)???3.?Pain in right toe(s) - M79.674???4.?Pain in left toe(s) - M79.675???5.?Right foot pain - M79.671???6.?Plantar wart - B07.0???Specify :RIGHT???7.?Ingrown nail - L60.0???Specify :Medial nail border,?TA??? Plan: * Treatment: 2.?Tinea unguium?Procedure: 58359-ITEGFPF NAIL, 6 OR MORE 3.?Plantar wart?Procedure: 26480-Emez Destruction, 1-14 4.?Ingrown nail?Procedure: 65394-Jetygqeq Plate * Procedures:?Debride Nail 6-10:?Nail debridement?Performance of this nail treatment by a nonprofessional would put this patients foot and overall health at risk. Therefore, debridement to affected nail(s), as described in exam, was performed extensively to reduce/remove overall nail length, girth, thickness, subungual debris, and necrotic tissue, by manual and/or electrical means through the use of a nail nipper and/or dremel-type platen grinder, to a more viable healthy nail plate or bed tissue 6-10 nails in total. Silver nitrate was used for any petechial bleeding as necessary. Definitive antifungal treatment options, both pharmaceutical and surgical, have been reviewed and discussed with the patient. The patient solely prefers the use of intermittent/as needed professional debridement services for their nail condition and understands the need for additional periodic treatments to maintain effectiveness in symptomatic relief - 16486.?Keratoma Treatment:?Parring or Cutting of Benign Hyperkeratotic Lesion(s)?(-56) 2-4 Lesions - The Benign hyperkeratotic lesions, ( 2) in total, locations as stated and described in exam, were pared, and/or cut utilizing a sterile 15 blade, tissue nippers, and/or power dremel instrumentation - 80436, Q8.?Nail Avulsion:?Location?Medial nail border,?TA.?Anesthesia?was accomplished TOPICALLY with Lidocaine Hydrochloride Jelly 2 percent.?Procedure?A fine sterile elevator was placed between the eponychium, nail fold, and nail plate to separate the structures. A sterile nail splitter, and/or sterile 316 blade, was then used to longitudinally section the nail along its entire length through the eponychium to the area under the nail fold. The offending portion of nail was from the nail bed with a rolling action and then removed with a hemostat. No underlying bone was identified. There was minimal bleeding as hemostasis was achieved through the temporary use of either a digital tourniquet or the aforementioned local with epinephrine. A bacitracin sterile dressing was applied. Local wound aftercare instructions were discussed and dispensed. The patient was informed of both conservative and future surgical procedures to prevent recurrence. Tylenol or Motrin was recommended for pain or discomfort (92324), DIABETES: Pt was advised as to the risk of delayed or nonhealing due to diabetes. Pt is to call the office with any questions, concerns, or complications.?Wart Treatment:?Procedure?Verruca, as described in exam, were debrided to pin-point bleeding margins with sterile 15 surgical blade, silver nitrate chemocautery applied, recomm. immune-boosting meds such as zinc, recomm. follow up with topical chemosurgical agents, Pt defers any other forms of tx - 11951.? * Procedure Codes:?49717 DEBRI DE NAIL, 6 OR MORE, Modifiers: XS 49388 Avulsion Plate, Modifiers: XS , [id number] TRIM SKIN LESIONS, 2 TO 4, Modifiers: XS , [id number] Wart Destruction, 1-14, Modifiers: XS * Follow Up:?5 Weeks * Images: * Sign off status: Completed true * Provider:?Raymundo Berman DPM Date:?2023 Generated for Wendy matson/[place] on:?05/23/2024 12:23 PM EDT History and Physical Notes * HPI (History of Present Illness) Category Sub-Category Detail Notes Category Not es At Risk footcare Pt States Last PCP Visit: Date: Examination Category Sub-Category Detail Notes Category Not es Ingrown Nail INSPECTION: Reveals nail inc urvation, pain on palpation, groove hypertrophy, Medial nail border, TA Dermatologic SKIN FINDINGS: Skin exam reveal s Keratotic lesion(s) located at , Plantar, Heel(s) , B/L VERRUCA: Reveals a Single , m ulti-loculated , mosaic-patterned, round, raised, flat-topped, petechial bleeding papule(s), with cauliflower appearance and interruption of skin lines, pain to lateral compression, and size estimated at 9mm diameter , plantar Forefoot , RIGHT Vascular DP PULSES (B): 1/4, B/L PT PULSES (B): 0/4, B/L CAPILLARY FILL TIME: delayed, all digits , B/L TEMPERTURE GRADIENT (C): decreased, cool to cool, proximal to distal, B/L TROPHIC CONDITION-TEXTURE/ELASTICITY/TURGOR/HAIR GROWTH (B): decreased, with sparse to absent hair gr owth, B/L EDEMA (C): absent, B/L CLAUDICATION (C): denies, B/L REST PAIN: denies, B/L PIGMENTATION: mottled, B/L Nails NAILS are: Elongated, overg rown, dystrophic, lytic, greater than 3mm thick, discolored and friable with crumbly malodorous subungual debris, with pain on palpation , 1-5 B/L
--- OUTSIDE RECORDS SUMMARY | 2024-05-23 12:23 | XMS_ITS ---
Author Organization [facility] Address [address] [place] [address] Care Team Providers Care Exchange Engineer Name Role Phone Raymundo Berman Unavailable [phone] REASON FOR VISIT NS 02/22/24 appt Encounters Encounter Location Date Provider Diagnosis [facility] [address] [address] 02/22/2024 Raymundo Berman Plan Of Treatment Next Appt Details Provider Name:Raymundo Berman , 05/25/2024 10:45:00 AM, [address] [facility], [place] [address], [place], [address], Progress Notes * Ayaka NAVARRETEDOB:[birth year] (68 yo F)Acc No.[id number]:02/22/2024 Patient:?Ayaka NAVARRETE :1955???Age:68 Y???Sex:Female Address:[address], [place], [address] * true * Date:? Generated for Printi ng/Falinog/eTransmitting on:?05/23/2024 12:23 PM EDT
--- OUTSIDE RECORDS SUMMARY | 2024-05-23 12:23 | XMS_ITS | Clinical Summary ---
Author Organization [facility] ity Address [address] [place] [address] Care Team Providers Care Rn Lpn Cna Name Role Phone Unavailable Primary Care Provider Unavailabl e Social History Tobacco Use Types Packs/Day Years Used Date Smoking Tobacco: Never Assessed Comments Unknown Sex and Gender Information Value Date Recorded Sex Assigned at Not on file Legal Sex Female 4:50 AM EST Gender Identity Not on file Sexual Orientation Not on file Plan of Treatment Health Maintenance Due Date Last Done Comments Breast Cancer Screening 1955 DTaP,Tdap,and Td Vaccines (1 - Tdap) 1976 Pneumococcal Vaccine: 50+ Ye ars (1 of 1 - PCV) 10/18/2007 Zoster Vaccines (1 of 2) 10/18/2007 Colorectal Cancer Screening: Colonoscopy 01/19/2022 Depression Screening 01/19/2022 Hepatitis C Screening 01/19/2022 Osteoporosis Screening (Bone Density Screening) 01/19/2022 Social Influencers of Health Screening 01/19/2022 Falls Risk Assessment 2022 COVID-19 Vaccine ( - 2023-2 5 season) 2023 Influenza Vaccine (Season Ended) 2024 RSV Immunization Adult Patie nts (1 - 1-dose 75+ series) 2032 HIB Vaccines Aged Out No longer eligi ble based on patient's age to complete this topic HPV Vaccines Aged Out No longer eligi ble based on patient's age to complete this topic Hepatitis A Vaccines Aged Out No long er eligible based on patient's age to complete this topic Hepatitis B Vaccines Aged Out No long er eligible based on patient's age to complete this topic IPV Vaccines Aged Out No longer eligi ble based on patient's age to complete this topic MMR Vaccines Aged Out No longer eligi ble based on patient's age to complete this topic Meningococcal ACWY Vaccine Aged Out N o longer eligible based on patient's age to complete this topic Meningococcal B Vacine Aged Out No lo nger eligible based on patient's age to complete this topic RSV Immunization Patients Un ap 20 months Aged Out No longer eligible b ased on patient's age to complete this topic Varicella Vaccines Aged Out No longer eligible based on patient's age to complete this topic Advance Directives Documents on File Type Date Recorded Patient Promotion Producer Expl anation Health Care Decision (hx) 08/26/2021 AD COOMBS DIRECTIVE Health Care Decision (hx) 08/26/2021 AD COOMBS DIRECTIVE Health Care Decision (hx) 08/26/2021 AD COOMBS DIRECTIVE
--- OUTSIDE RECORDS SUMMARY | 2024-05-23 12:24 | XMS_ITS ---
Author Organization [facility] Address [address] [place] [address] Care Team Providers Care Reception Agent Name Role Phone Raymundo Berman Unavailable [phone] Encounters Encounter Location Date Provider Diagnosis [facility] [address] [address] 02/22/2024 Raymundo Berman Plan Of Treatment Next Appt Details Provider Name:Raymundo Berman , 05/25/2024 10:45:00 AM, [address] [facility], [address] [facility], [place], [address], Progress Notes * LANDONAyakaDOB:[birth year] (68 yo F)Acc No.[id number]:02/22/2024 Progress Notes Patient:?Ayaka NAVARRETE Provider:?Raymundo Berman DPM :1955???Age:68 Y???Sex:Female D ate:02/22/2024 Address:[facility] [address], [place], [place] Subjective: * Chief Complaints: * ??? * Medical History:? Objective: * Vitals:? Assessment: Plan: * Treatment: * Images: * The named appointment provid er may or may not be the originator of this progress note, and it is not deemed complete until electronically signed by the appointment provider. Sign off status: Pending * Provider:?Raymundo Berman DPM Date:?2024 Generated for Wendy matson/[place] on:?05/23/2024 12:23 PM EDT
== END 2024-05-23 11:16 | disposition home or self-care (01) ==
LOC: HO.HSMS 10:32
PROVIDERS: Visit Provider Nurse Practitioner Family
DX: S06.0XAA Concussion with loss of consciousness status unknown, initial encounter (principal); G43.709 Chronic migraine without aura, not intractable, without status migrainosus; R42 Dizziness and giddiness; M54.2 Cervicalgia; M47.816 Spondylosis without myelopathy or radiculopathy, lumbar region
CPT/HCPCS: 99214

== ENCOUNTER → 2024-05-23 10:31 | Outpatient (BNVA) | payer OTHER, SELFPAY | PROVIDERS: Visit Provider Nurse Practitioner Family | DX: G43.709 Chronic migraine without aura, not intractable, without status migrainosus (principal); S06.0XAA Concussion with loss of consciousness status unknown, initial encounter; F07.81 Postconcussional syndrome; R42 Dizziness and giddiness; M54.2 Cervicalgia; M47.816 Spondylosis without myelopathy or radiculopathy, lumbar region | CPT/HCPCS: 99212 ==

== ENCOUNTER 2024-06-12 15:08 | Outpatient (REF) | payer OTHER, SELFPAY | END 2024-06-12 15:09 | disposition home or self-care (01) | LOC: HO.MRI 15:08 | PROVIDERS: Visit Provider Nurse Practitioner Family | DX: R51.9 Headache, unspecified (principal); S06.0XAA Concussion with loss of consciousness status unknown, initial encounter; R42 Dizziness and giddiness | CPT/HCPCS: 70551 ==

== ENCOUNTER → 2024-06-12 15:21 | Outpatient (BNV) | payer OTHER, SELFPAY | PROVIDERS: Visit Provider Radiology Diagnostic Radiology | DX: R51.9 Headache, unspecified (principal) | CPT/HCPCS: 70551 ==

== ENCOUNTER 2024-09-26 13:29 | Outpatient (AMB) | payer OTHER, SELFPAY ==
[2024-09-26 13:35] VITALS: BP 136/80; PULSE 95; O2SAT 94; BMI 29.5
--- NOTE | 2024-09-26 13:35 | A.OFFVIS_ITS ---
Vital Signs 09/26/24 13:35 Height 4 ft 10 in Weight 141 lb BMI 29.5 BP 136/80 Blood Pressure Location Lt brachial Position Sitting Pulse 95 Pulse Source Pulse Oximeter Pulse Oximetry (%) 94 Oxygen Delivery Method Room Air Intake Visit Reasons: 4 MO FU Intake Note: Patient presents follow up Post concussive/Migraine Medication. MRI in chart. Victim Witness Administrator Required: Yes Victim Witness Administrator Language: Rigging Supervisor Services: Victim Witness Administrator Present Victim Witness Administrator Name: Tammie [id number] Accompanied by: Self / Same As Patient Allergies Sulfa (Sulfonamide Antibiotics) Allergy (Severe, Verified 09/26/24 13:38) Anaphylaxis Penicillins Allergy (Mild, Verified 09/26/24 13:38) Anaphylaxis Medication List - Last Reconciled 09/26/24 by PENG Thapa albuterol sulfate 90 mcg/actuation 2 puffs inhalation Q6H PRN albuterol sulfate 90 mcg/actuation (Ventolin HFA) 2 puffs inhalation Q6H PRN amitriptyline 10 - 20 mg (1 - 2 x 10 mg) PO BEDTIME 30 days blood sugar diagnostic (Freestyle InsuLinx strips) As directed cetirizine 10 mg PO cyclobenzaprine 10 mg PO BID PRN 30 days diclofenac sodium 1% 4 grams topical QID PRN 30 days dicyclomine 20 mg PO BID PRN duloxetine 60 mg PO DAILY duloxetine 30 mg PO DAILY fremanezumab-vfrm (Ajovy) 225 mg (1.5 mL) subcut ONCE 30 days glimepiride 4 mg PO DAILY insulin glargine (Lantus Solostar U-100 Insulin) units subcut lancets (FreeStyle Lancets) As directed losartan 25 mg PO DAILY magnesium oxide 400 mg PO BEDTIME 30 days omeprazole 20 mg PO BID pen needle, diabetic (BD Ultra-Fine Short Pen Needle) As directed pregabalin 75 mg PO BID riboflavin (vitamin B2) 400 mg PO DAILY 30 days sumatriptan succinate 50 - 100 mg orally at onset of headache, may repeat in 2 hrs PRN; max 2 tabs per day or 4 tabs/week (may take with Tylenol) 30 days [wrist splints As directed] HPI Comments Details: 68-yr-old female presents for f/u visit of post-concussive syndrome and dizziness. Pt is doing PT which has been helpful for her neck. She continues to have a daily headcahe, she never started Ajovy- no current insurance PA in place. Using Sumatriptan prn- which helps but does not have enough d/t headache frequency. She is concerned that in OR she was told she has MS. She states her s/s were generlaized body and joint pains. She states she would like to see a pain amnagement or orthopedic or rheumatology office. 05/23/2024, HPI: The patient is a 68-year-old female presenting with postconcussive headache and dizziness. Dizziness symptoms started after the previous fall, but began to worsen 15 days ago, linked with positional changes. Dizziness described as spinning sensation. She has continued to have headaches since the previous fall back in the fall of 2023. Sleep disruption with night-time amitriptyline use. No recent MRI, inquiry about vestibular therapy. Reports blood pressure fluctuations, typically high when headaches worse. Throat irritation/dryness potentially medication-related. History of pancreatitis, but current treatments deemed non-aggravating. Review of Systems - Neurological: Reports dizziness with positional change, sleep disruptions. - Cardiovascular: Reports fluctuations in blood pressure. - Gastrointestinal: Reports throat irritation/dryness potentially due to medication. 11/20/2023, previous HPI: In-lab PSG- Dec 2022- no evidnece of sleep apnea. Mild PLMS w/ arousals. Pt states she has mild RLS s/s, but is more worried about a recent fall she had. Pt reports she had a fall ~ 2 months ago, she fell backwards while trying to ad just a bureau. She fell straight back and hit the back of her head. She immediately had headache, dizziness, some nausea, and low back pain. She is not sure if she had LOC. She did not seek medical attention. Since, she has continued to have headaches, dizziness, and low back pain. She is using the sumatriptan with effect. The dizziness is room spinning dizziness, triggered by rolling over in bed and getting up. She feels her neck is sore and a bit inflamed. Her low back is still sore and has some coldness and pain radiating down the LLE. [facility] Medical History Chronic migraine without aura, not intractable Carpal tunnel syndrome Lumbar spondylosis Hearing loss Stroke Dysphagia Weakness Numbness Surgical History H/O: H/O shoulder surgery H/O breast surgery H/O hernia repair Social History Alcohol intake: never Patient Tobacco Use Status: Current everyday Tobacco user Physical Exam Vital Signs: Last Vital Signs Pulse 95 09/26/24 13:35 BP 136/80 09/26/24 13:35 Pulse Ox 94 09/26/24 13:35 Oxygen Delivery Method Room Air 09/26/24 13:35 BMI result Body Mass Index 29.5 Const General: cooperative and no acute distress Orientation/consciousness: patient oriented x3 Resp Effort & Inspection: normal respiratory effort and able to speak in complete sentences Neuro Other: Slow to stand due to low back discomfort, antalgic gait, which is unsteady today General: patient oriented x3 Cranial nerves: Yes CN's II-XII intact bilaterally Cognition (Neuro): normal cognition Psych Appearance: grossly normal Mental Status: mental status grossly normal Speech and movement: Normal speech and movement present Affect: normal affect Attitude: cooperative Assessment & Plan Assessment & Plan (1) Chronic migraine without aura, not intractable: Code(s): G43.709 - Chronic migraine without aura, not intractable, without status migrainosus Category: Medical Qualifiers: Status migrainosus presence: without status migrainosus Qualified Co de(s): G43.709 - Chronic migraine without aura, not intractable, without status migrainosus (2) Postconcussive syndrome: Comment: s/p fall at home, fell backwards w/ + occipital region head strike w/o known LOC status. Code(s): F07.81 - Postconcussional syndrome Category: Medical (3) Vertigo: Code(s): R42 - Dizziness and giddiness Category: Medical (4) Cervicalgia: Code(s): M54.2 - Cervicalgia Category: Medical (5) Lumbar spondylosis: Code(s): M47.816 - Spondylosis without myelopathy or radiculopathy, lumbar region Category: Medical Plan Reviewed 06/12/2024, brain MRI without contrast: Nonspecific scattered periventricular and subcortical white matter hyperintensities on the FLAIR and T2-weighted images, otherwise unremarkable exam. For postconcussive syndrome w/ positional vertigo, increased neck pain, and low back pain: After patient visit today, I was able to access patient is [facility] portal, and recent PCP notes and previous rheumatology notes. PCP is currently managing patient's chronic pain symptoms with oxycodone- go it is not clear patient is still taking this. Patient has a history of positive DEREK 1:80. Patient has had a number of x-rays shoulder, lumbar, knee, ankle, showing degenerative and/or osteoarthritic changes. Check labs Continue Vestibular PT exercises Cyclobenzaprine 10mg prn muscle spasm. Diclofenac gel prn muscle spasm/pain. OTC warm packs x's 20 minutes prn. Migraine treatment regimen as below Future considerations: f/u imaging, PT for low back pain. For migraine prevention: Amitriptyline 10-20mg qhs- can not increase further due to patient already has dry throat. Riboflavin 400mg qam Magnesium 400 mg qhs Again start unsure [place] Ajovy 225mg/1.5ml autoinjector- injection 225mg subc utaneously once a month. Potential adverse effects of Ajovy include but are not limited to injection site reactions. Pt advised Ajovy will likely require insurance prior authorization. Ajovy should be refrigerated until 1 hr prior use. Once approved and available patient would like in office injection training . Previous migraine tx trials: Gabapentin- did not help headaches. Migraine tx contraindications: BBs d/t symptomatic asthma dx. ? For acute migraine tx: Sumatriptan 100mg tab prn. ? For carpal tunnel syndrome: Wrist splints- order printed again for pt to bring to medical supply store. Will follow-up upon review of above and patient to follow-up in clinic in 6 months or sooner prn.? Orders: Orders Complete Blood Count Auto Diff Today M19.90 - Unspecified osteoarthritis, unspecified site, M25.50 - Pain in unspecified joint, R76.8 - Other specified abnormal immunological findings in serum C Reactive Protein Today M19.90 - Unspecified osteoarthritis, unspecified site, M25.50 - Pain in unspecified joint, R76.8 - Other specified abnormal immunological findings in serum Comprehensive [place]. Panel Fast Today M19.90 - Unspecified osteoarthritis, unspecified site, M25.50 - Pain in unspecified joint, R76.8 - Other specified abnormal immunological findings in serum Erythrocyte Sedimentation Rate Today M19.90 - Unspecified osteoarthritis, unspecified site, M25.50 - Pain in unspecified joint, R76.8 - Other specified abnormal immunological findings in serum Rheumatoid Factor Today M19.90 - Unspecified osteoarthritis, unspecified site, M25.50 - Pain in unspecified joint, R76.8 - Other specified abnormal immunological findings in serum DEREK Reflex Titer and Pattern Today M19.90 - Unspecified osteoarthritis, unspecified site, M25.50 - Pain in unspecified joint, R76.8 - Other specified abnormal immunological findings in serum TSH reflex Free T4 Today M19.90 - Unspecified osteoarthritis, unspecified site, M25.50 - Pain in unspecified joint, R76.8 - Other specified abnormal immunological findings in serum Vitamin B12 and Folate Today M1.90 - Unspecified osteoarthritis, unspecified site, M25.50 - Pain in unspecified joint, R76.8 - Other specified abnormal immunological findings in serum Vitamin D 25-OH (D2 and D3) Today E55.9 - Vitamin D deficiency, unspecified, M19.90 - Unspecified osteoarthritis, unspecified site, M25.50 - Pain in unspecified joint, R76.8 - Other specified abnormal immunological findings in serum Medications: Changed From fremanezumab-vfrm (Ajovy) administer 225mg sc q month 225 mg (1.5 mL) subcut ONCE 30 days 1.5 mL 6RF G43.709 - Chronic migraine without aura, not intractable, without status migrainosus To fremanezumab-vfrm (Ajovy) administer 225mg sc q month 225 mg (1.5 mL) subcut QMONTH 1.5 mL 6RF 30 days G43.709 - Chronic migraine without aura, not intractable, without status migrainosus From riboflavin (vitamin B2) 400 mg PO DAILY 30 days 30 tabs 6RF To riboflavin (vitamin B2) 400 mg PO DAILY 90 tabs 3RF 90 days From magnesium oxide may hold for loose stools 400 mg PO BEDTIME 30 days 30 tabs 6RF To magnesium oxide may hold for loose stools 400 mg PO BEDTIME 90 tabs 3RF 90 days Refilled amitriptyline 10 - 20 mg (1 - 2 x 10 mg) PO BEDTIME 30 tabs 6RF 30 days sumatriptan succinate 50 - 100 mg orally at onset of headache, may repeat in 2 hrs PRN; max 2 tabs per day or 4 tabs/week (may take with Tylenol) 14 tabs 6RF migraine headache 30 days Coding Level of Care Code Est Pt Level 4 (18081) Diagnoses Chronic migraine without aura without status migrainosus, not intractable G4 3.709 Status migrainosus presence: without status migrainosus Postconcussive syndrome F07.81 Vertigo R42 Cervicalgia M54.2 Lumbar spondylosis M47.816
--- OUTSIDE RECORDS SUMMARY | 2024-09-26 13:42 | XMS_ITS | Patient Health Record ---
Author Organization [facility] Address [address] [place] [address] Care Team Providers Care Casting Cleaner Name Role Phone Raymundo Berman Unavailable [phone] Allergies Allergen (clinical drug ingredient) Drug/Non Drug Allergy documented on EMR Reaction Allergy Type Onset Date Status Penicillin Unknown Drug Allergy Active Substance with sulfonamide structure and antibacterial mechanism of action (substance) Sulfa Antibiotics Unknown Drug Allergy Active Results Component Value Reference Range Notes HEMOGLOBIN A1C (GLYCOHEMOGLO BIN) Reviewed date:08/24/2024 01:48:19 PM Interpretation: Performing Lab: Notes/Report: HEMOGLOBIN A1C % (HH) 7.5 Reason For Referral No Information Medications Medication SIG (Take, Route, Frequency, Duration) Notes Start Date End Date Status Ramelteon 8 MG TAKE 1 TABLET BY KOFI TH EVERY NIGHT AT BEDTIME Oral; Duration: 30 Days Active Gabapentin 300 MG TAKE 1 CAPSULE BY MO UTH AT BEDTIME Oral; Duration: 30 Days Not-Taking SUMAtriptan Succinate 100 MG Oral; Duration: 24 Days Acti ve NovoLOG 100 UNIT/ML Injection; Duration: 30 Days Active traZODone HCl 100 MG Oral; Duration: 30 Days Active Extra Depth Orthopedic Shoes, (1) Pair With (3) Pair Custom Heat Molded Multidensity Innersoles Dx: NIDDM/PVD(E11.51), Hammertoe Foot Deformity(M20.41,M20.42) , Preulcerative Skin Lesion(s)(L85.1) Wear Daily; Duration: 365 days Active Omeprazole 20 MG Oral; Duration: 90 Days Active amLODIPine Besylate 10 MG Oral; Duration: 90 Days Acti ve Acetaminophen 325 MG TAKE 2 TABLETS BY M OUTH EVERY 6 HOURS NEEDED FOR PAIN Oral; Duration: 6 Days Active Zolpidem Tartrate 10 MG Oral; Duration: 30 Days Active Albuterol Sulfate HFA 108 (90 Base) MCG/ACT Inhalation; Duration: 16 Days Active Wixela Inhub 100-50 MCG/ACT Inhalation; Duration: 90 Days Active tiZANidine HCl 2 MG Oral; Duration: 15 Days Active Fluticasone-Salmeterol 100-50 MCG/ACT Inhalation; Duration: 90 Days Active Amitriptyline HCl 10 MG TAKE 1 TO 2 TABL ETS BY MOUTH AT BEDTIME DIRECTED Oral; Duration: 15 Days Active Lantus SoloStar 100 UNIT/ML Subcutaneous; Duration: 53 Days Active Vitamin B50 Complex 08/26/2023 Active Dicyclomine HCl 20 MG Oral; Duration: 7 Days Active Pregabalin 75 MG TAKE 1 CAPSULE BY MO UTH TWICE DAILY Oral; Duration: 30 Days Active DULoxetine HCl 60 MG Oral; Duration: 30 Days Active Magnesium Oxide -Mg Supplement 400 (240 Mg) MG Oral; Duration: 30 Days Acti ve Immunizations Vaccine Route Administration Date Status Comme nts Influenza Unknown 10/19/2023 Administered Social History Tobacco Use: Social History Observation Description Date Details (start date - stop date) Current Smoker 06/09/1974 - NA Tobacco use other than smoking: Question Answer Notes Are you an other tobacco user? No Tobacco Control (Standard) Question Answer Notes Tobacco use: Current smoker When did you start smoking? 06/09/1974 How often do you smoke cigarettes? Every day How many cigarettes a day do you smoke? 6-10 How soon after you wake up d o you smoke your first cigarette? 31-60 minutes Are you interested in quitting? Not ready to alba t Additional Findings: Tobacco user Light cigarett e smoker (1-9 cigs/day) AUDIT-C (Standard) Question Answer Notes Did you have a drink containing alcohol in the p ast year? No Points 0 Interpretation Negative Problems Problem Type SNOMED Code ICD Code Onset Dates Problem Status W/U Status Risk Notes Problem Acquired hammer toe of right foot (5997534888673 105) Other hammer toe(s) (acquired), right foot (M20.41) Active confirmed Response to treatment,I mprovement Problem Type 2 diabetes mellitus with peripheral angiopathy (816523805) Type 2 diabetes mellitus with diabetic peripheral angiopathy without gangrene (E11.51) Active confirmed Q7(A), Q8(2B), Q9(1B,2C) Problem Acquired hammer toe of left foot (2661503120567 103) Other hammer toe(s) (acquired), left foot (M20.42) Active confirmed Response to treatment,I mprovement Vital Signs Height 4ft 10in in 08/24/2024 Weight 149 lbs 08/24/2024 BMI 31.14 kg/m2 08/24/2024 Procedures Procedure Date Ordered Date Performed Result Body Sit e 20840-Ppxy Destruction, 1-14 09/28/2023 N/A 41387-PENNARM NAIL, 6 OR MORE 11/02/2023 N/A 79037-Xqtd Destruction, 1-14 11/02/2023 N/A 55130-TGRC SKIN LESIONS, 2 TO 4 11/02/2023 N/A 08567-Fesd Destruction, 1-14 12/09/2023 N/A 05778-MJLMEAC NAIL, 6 OR MORE 01/13/2024 N/A 96975-Kurz Destruction, 1-14 01/13/2024 N/A 05392-Yilynehb Plate 01/13/2024 N/A 17982-TPVP SKIN LESIONS, 2 TO 4 01/13/2024 N/A 10309-ZBZSIGU NAIL, 6 OR MORE 05/25/2024 N/A 70740-Jfol Destruction, 1-14 05/25/2024 N/A 37344-FPWZ SKIN LESIONS, 2 TO 4 05/25/2024 N/A 21027-XQWTMZJ NAIL, 6 OR MORE 08/24/2024 N/A 63910-EVTQ SKIN LESIONS, 2 TO 4 08/24/2024 N/A Encounters Encounter Location Date Provider Diagnosis [facility] [address] 09/28/2023 Raymundo Berman Right foot pain M79.671 and Plantar wart B07.[address] [facility] [address] 11/02/2023 Raymundo Berman Type 2 diabetes mellitus with diabetic peripheral angiopathy without gangrene E11.51 ; Tinea unguium B35.1 ; Pain in right toe(s) M79.674 ; Pain in left toe(s) M79.675 ; Right foot pain M79.671 ; Plantar wart B07.0 ; Other hammer toe(s) (acquired), right foot M20.41 and Other hammer toe(s) (acquired), left foot M20.[address] [address] 12/09/2023 Raymundo Berman Right foot pain M79.671 and Plantar wart B07.[address] [address] 01/13/2024 Raymundo Berman Type 2 diabetes mellitus with diabetic peripheral angiopathy without gangrene E11.51 ; Tinea unguium B35.1 ; Pain in right toe(s) M79.674 ; Pain in left toe(s) M79.675 ; Right foot pain M79.671 ; Plantar wart B07.0 and Ingrown nail L60.[address] [address] 05/25/2024 Raymundo Berman Type 2 diabetes mellitus with diabetic peripheral angiopathy without gangrene E11.51 ; Tinea unguium B35.1 ; Pain in right toe(s) M79.674 ; Pain in left toe(s) M79.675 ; Right foot pain M79.671 and Plantar wart B07.[address] [address] 08/24/2024 Raymundo Berman Type 2 diabetes mellitus with diabetic peripheral angiopathy without gangrene E11.51 ; Other hammer toe(s) (acquired), right foot M20.41 ; Tinea unguium B35.1 ; Pain in right toe(s) M79.674 ; Pain in left toe(s) M79.675 and Other hammer toe(s) (acquired), left foot M20.[address] [address] 02/22/2024 Raymundo Antonella Assessments Encounter Date Diagnosis (ICD Code) Assessment Notes Treatment Notes Treatment Clinical Notes Section Notes 09/28/2023 Plantar wart (ICD-10 - B07.0) 09/28/2023 [...] gangrene (ICD-10 - E11.51) Q7(A), Q8(2B), Q9(1B,2C) 05/25/2024 Tinea unguium (ICD-10 - B35.1) 05/25/2024 Type 2 diabetes mellitus with diabetic peripheral angiopathy without gangrene (ICD-10 - E11.51) Q7(A), Q8(2B), Q9(1B,2C) 08/24/2024 Other hammer toe(s) (acquired), right foot (ICD-10 - M20.41) Patient Educated with: DIABETIC FOOT CARE INSTRUCTIONS.p df (DIABETIC FOOT CARE INSTRUCTIONS.p df) 08/24/2024 Type 2 diabetes mellitus with diabetic peripheral angiopathy without gangrene (ICD-10 - E11.51) 08/24/2024 Tinea unguium (ICD-10 - B35.1) 05/25/2024 Pain in right toe(s) (ICD-10 - M79.674) 11/02/2023 Pain in right toe(s) (ICD-10 - M79.674) 01/13/2024 Pain in right toe(s) (ICD-10 - M79.674) 01/13/2024 Pain in left toe(s) (ICD-10 - M79.675) 11/02/2023 Pain in left toe(s) (ICD-10 - M79.675) 08/24/2024 Pain in right toe(s) (ICD-10 - M79.674) 05/25/2024 Pain in left toe(s) (ICD-10 - M79.675) 01/13/2024 Right foot pain (ICD-10 - M79.671) 05/25/2024 Right foot pain (ICD-10 - M79.671) 08/24/2024 Pain in left toe(s) (ICD-10 - M79.675) 11/02/2023 Right foot pain (ICD-10 - M79.671) 11/02/2023 Plantar wart (ICD-10 - B07.0) 01/13/2024 Plantar wart (ICD-10 - B07.0) 08/24/2024 Other hammer toe(s) (acquired), left foot (ICD-10 - M20.42) 05/25/2024 Plantar wart (ICD-10 - B07.0) 01/13/2024 Ingrown nail (ICD-10 - L60.0) 11/02/2023 Other hammer toe(s) (acquired), right foot (ICD-10 - M20.41) Response to treatment,Impro vement 11/02/2023 Other hammer toe(s) (acquired), left foot (ICD-10 - M20.42) Response to treatment,Impro vement Plan Of Treatment Pending Test Test Name Order Date 99301-SOLHNXI NAIL, 6 OR MORE 04/20/2023 19178-UDMMZUA NAIL, 6 OR MORE 08/26/2023 72224-XPCOHWH NAIL, 6 OR MORE 11/02/2023 18548-FIWHZEC NAIL, 6 OR MORE 01/13/2024 61746-ZCDCGKM NAIL, 6 OR MORE 05/25/2024 95267-DVOBBAJ NAIL, 6 OR MORE 08/24/2024 65176-Yvuh Destruction, 1-14 05/25/2024 11790-Frkm Destruction, 1-14 09/28/2023 45351-Pobv Destruction, 1-14 01/13/2024 90858-Lyjo Destruction, 1-14 11/02/2023 97260-Hkrz Destruction, 1-14 12/09/2023 19203-Vckx Destruction, 1-14 08/26/2023 45942-Nrwn Destruction, 1-04/20/2023 46461-Dkprzglt Plate 04/20/2023 65663-Fcoxoidj Plate 01/13/2024 53715-Rhpvfhvp Plate Each Additional 05/2023 10089-ZLQF SKIN LESIONS, 2 TO 4 04/20/19 14920-DMDQ SKIN LESIONS, 2 TO 4 08/26/19 24 69465-FBNX SKIN LESIONS, 2 TO 4 11/02/19 24615-NGUS SKIN LESIONS, 2 TO 4 05/26/19 18472-UYDI SKIN LESIONS, 2 TO 4 01/13/20 75224-LAKW SKIN LESIONS, 2 TO 4 08/25/19 Next Appt Details Provider Name:Raymundo Berman , 11/30/2024 01:45:00 PM, [address] [facility] [facility] [address], [address], [place], [address], Insurance Providers Payer Name Payer Address Payer Phone Subscriber Number Group Number Insured Name Patient Relationship to Insured Coverage Start Date Coverage End Date [facility] [employer] Claims [address] [place] [address] [id number] Ayaka Johnson Self - patient is the insured Medical (General) History Medical History History ICD Code Anxiety Arthritis asthma Back pain Depression Diabetic Fibromyalgia High blood pressure Chicken pox Joint implants/screws Bone implants/screws Surgical History Surgery Date(Month/Year) Breast Surgery 2023
--- OUTSIDE RECORDS SUMMARY | 2024-09-26 13:42 | XMS_ITS | Clinical Summary ---
Author Organization [facility] Address [address] [place] [address] Phone Care Team Providers Care C Unix Developer Name Role Phone Pcp, Unknown Primary Care Provider Unavailabl e Social History Tobacco Use Types Packs/Day Years Used Date Smoking Tobacco: Never Assessed Education Answer Date Recorded Are you interested in more education? Not on verena e 05/11/2024 Are you concerned about learning? Not on file 05/11/2024 No 05/11/2024 No 05/11/2024 Digital Access Answer Date Recorded No 05/11/2024 No 05/11/2024 Reliable internet access at home? Not on file 05/11/2024 Device with a working camera? Not on file Comments Unknown Sex and Gender Information Value Date Recorded Sex Assigned at Not on file Legal Sex Female 4:02 PM EDT Gender Identity Not on file Sexual Orientation Not on file Plan of Treatment Not on file Medical Devices Not on file Insurance [facility] REPLACEMENT [place] [id number] [facility] MEDICARE REPLACEMENT [facility] MEDICARE REPLACEMENT [facility] MEDICARE REPLACEMENT [facility] MEDICARE [place] [address] [address] [place] [address] MEDICARE REPLACEMENT Care Teams C Unix Developer Relationship Specialty Start Date End Date Pcp, Unknown PCP - General 05/11/24 Additional Source Comments The information contained in this document represents components of the legal health record. It is not the complete legal health record.[facility]
--- OUTSIDE RECORDS SUMMARY | 2024-09-26 13:42 | XMS_ITS | Clinical Summary ---
Author Organization [facility] Address [address] [place] [address] Care Team Providers Care Double Cut Sawyer Name Role Phone Unavailable Primary Care Provider [...] 2) 10/18/2007 Colorectal Cancer Screening: Colonoscopy 01/19/2022 Hepatitis C Screening 01/19/2022 Osteoporosis Screening (Bone Density Screening) 01/19/2022 Social Influencers of Health Screening 01/19/2022 Falls Risk Assessment 2022 COVID-19 Vaccine ( - 2023-2 5 season) 2023 Depression Screening 02/17/2024 Influenza Vaccine (#1) 2024 RSV Immunization Adult Patie nts (1 [...] age to complete this topic Meningococcal B Vaccine Aged Out No l onger eligible based on patient's age to complete this topic RSV Immunization Patients Un ap 20 months Aged Out No longer eligible b ased on patient's age to complete this topic Varicella Vaccines Aged Out No longer eligible based on patient's age to complete this topic Advance Directives Documents on File Type Date Recorded Patient Photoengraving Photographer Expl anation Health Care Decision (hx) 08/26/2021 AD COOMBS DIRECTIVE Health Care Decision (hx) 08/26/2021 AD COOMBS DIRECTIVE Health Care Decision (hx) 08/26/2021 AD COOMBS DIRECTIVE
== END 2024-09-26 14:12 | disposition home or self-care (01) ==
LOC: HO.HSMS 13:30
PROVIDERS: Visit Provider Nurse Practitioner Family
DX: G43.709 Chronic migraine without aura, not intractable, without status migrainosus (principal); F07.81 Postconcussional syndrome; R42 Dizziness and giddiness; M54.2 Cervicalgia; M47.816 Spondylosis without myelopathy or radiculopathy, lumbar region
CPT/HCPCS: 99214

== ENCOUNTER → 2024-09-26 13:29 | Outpatient (BNVA) | payer OTHER, SELFPAY | PROVIDERS: Visit Provider Nurse Practitioner Family | DX: G43.709 Chronic migraine without aura, not intractable, without status migrainosus (principal); F07.81 Postconcussional syndrome; R42 Dizziness and giddiness; M54.2 Cervicalgia; M47.816 Spondylosis without myelopathy or radiculopathy, lumbar region; M19.90 Unspecified osteoarthritis, unspecified site; M25.50 Pain in unspecified joint; R76.8 Other specified abnormal immunological findings in serum | CPT/HCPCS: 99212 ==

== ENCOUNTER 2024-10-04 14:15 | Outpatient (REF) | payer OTHER, SELFPAY ==
--- OUTSIDE RECORDS SUMMARY | 2024-10-04 15:37 | XMS_ITS | Clinical Summary ---
Author Organization [facility] ity Address [address] [place] [address] Care Team Providers Care Deputy Bailiff Name Role Phone Unavailable Primary Care Provider [...] Last Done Comments Breast Cancer Screening 1955 Diabetes: Annual GFR (Glomer ular Filtration Rate) 1957 Diabetes: Annual Foot Exam 10/18/1967 Diabetes: Annual Retina Eye Exam 10/18/1967 DTaP,Tdap,and Td Vaccines (1 - Tdap) 1976 Pneumococcal Vaccine: 50+ Ye ars (1 of 1 - PCV) 10/18/2007 Zoster Vaccines (1 of 2) 10/18/2007 RSV Immunization Adult Patie nts (1 - Risk 60-74 years 1-dose series) 2017 Cholesterol Screening (Lipid Panel) 01/19/2022 Colorectal Cancer Screening: Colonoscopy 01/19/2022 Hepatitis C Screening 01/19/2022 Osteoporosis Screening (Bone Density Screening) 01/19/2022 Social Influencers of Health Screening 01/19/2022 Falls Risk Assessment 2022 COVID-19 Vaccine (1 - 2023-2 5 season) 2023 Depression Screening 02/17/2024 Diabetes: Annual Urine Albumin-Creatinine Ratio (uACR) 09/27/2024 Diabetes: Blood Sugar Contro l Test (HGBA1C) 09/27/2024 Influenza Vaccine (#1) 2024 HIB Vaccines Aged Out No longer eligi [...] Documents on File Type Date Recorded Patient Director It Expl anation Health Care Decision (hx) 08/26/2021 AD COOMBS DIRECTIVE Health Care Decision (hx) 08/26/2021 AD COOMBS DIRECTIVE Health Care Decision (hx) 08/26/2021 AD COOMBS DIRECTIVE
--- OUTSIDE RECORDS SUMMARY | 2024-10-04 15:37 | XMS_ITS | Patient Health Record ---
Author Organization [facility] Address [address] [place] [address] Care Team Providers Care Web Architect Name Role Phone Raymundo Berman Unavailable [phone] Allergies Allergen (clinical drug ingredient) Drug/Non Drug [...] Problem Acquired hammer toe of right foot (3701924828737 105) Other hammer toe(s) (acquired), right foot (M20.41) Active confirmed Response to treatment,I mprovement Problem Type 2 diabetes mellitus with peripheral angiopathy (030067941) Type 2 diabetes mellitus with diabetic peripheral angiopathy without gangrene (E11.51) Active confirmed Q7(A), Q8(2B), Q9(1B,2C) Problem Acquired hammer toe of left foot (6806502850061 103) Other hammer toe(s) (acquired), left foot (M20.42) Active confirmed Response to treatment,I mprovement Vital Signs Height 4ft 10in in 08/24/2024 Weight 149 lbs 08/24/2024 BMI 31.14 kg/m2 08/24/2024 Procedures Procedure Date Ordered Date Performed Result Body Sit e 55040-WGXQACE NAIL, 6 OR MORE 11/02/2023 N/A 36708-Blbt Destruction, 1-14 11/02/2023 N/A 65476-HTTU SKIN LESIONS, 2 TO 4 11/02/2023 N/A 69517-Mrfv Destruction, 1-14 12/09/2023 N/A 25556-SOGPKKP NAIL, 6 OR MORE 01/13/2024 N/A 79718-Lbaa Destruction, 1-14 01/13/2024 N/A 13846-Kooclzpr Plate 01/13/2024 N/A 15186-YHWL SKIN LESIONS, 2 TO 4 01/13/2024 N/A 07548-IXBODGV NAIL, 6 OR MORE 05/25/2024 N/A 51412-Klrd Destruction, 1-14 05/25/2024 N/A 93394-HNTA SKIN LESIONS, 2 TO 4 05/25/2024 N/A 67183-ZEQRMZF NAIL, 6 OR MORE 08/24/2024 N/A 64329-PRSN SKIN LESIONS, 2 TO 4 08/24/2024 N/A Encounters Encounter Location Date Provider Diagnosis [facility] [address] [place] [id number] 11/02/2023 Ryamundo Berman Type 2 diabetes mellitus with diabetic peripheral angiopathy without gangrene E11.51 ; Tinea unguium B35.1 ; Pain in right toe(s) M79.674 ; Pain in left toe(s) M79.675 ; Right foot pain M79.671 ; Plantar wart B07.0 ; Other hammer toe(s) (acquired), right foot M20.41 and Other hammer toe(s) (acquired), left foot M20.[address] [address] 12/09/2023 Raymundo Berman Right foot pain M79.671 and Plantar wart B07.[address] [address] 01/13/2024 Raymundo Berman Type 2 diabetes mellitus with diabetic peripheral angiopathy without gangrene E11.51 ; Tinea unguium B35.1 ; Pain in right toe(s) M79.674 ; Pain in left toe(s) M79.675 ; Right foot pain M79.671 ; Plantar wart B07.0 and Ingrown nail L60.[address] [address] 05/25/2024 Raymundo Berman Type 2 diabetes mellitus with diabetic peripheral angiopathy without gangrene E11.51 ; Tinea unguium B35.1 ; Pain in right toe(s) M79.674 ; Pain in left toe(s) M79.675 ; Right foot pain M79.671 and Plantar wart B07.[address] [address] 08/24/2024 Raymundo Berman Type 2 diabetes mellitus with diabetic peripheral angiopathy without gangrene E11.51 ; Other hammer toe(s) (acquired), right foot M20.41 ; Tinea unguium B35.1 ; Pain in right toe(s) M79.674 ; Pain in left toe(s) M79.675 and Other hammer toe(s) (acquired), left foot M20.[address] [address] 02/22/2024 Raymundo Berman Assessments Encounter Date Diagnosis (ICD Code) Assessment Notes Treatment Notes Treatment Clinical Notes Section Notes 11/02/2023 Tinea unguium (ICD-10 - B35.1) 11/02/2023 [...] Treatment Pending Test Test Name Order Date 04504-QNKVEEZ NAIL, 6 OR MORE 04/20/2023 13263-GYCZSIY NAIL, 6 OR MORE 08/26/2023 38037-BPKPUWA NAIL, 6 OR MORE 11/02/2023 14421-MYDDVQW NAIL, 6 OR MORE 01/13/2024 09676-NHEMBIJ NAIL, 6 OR MORE 05/25/2024 18391-AIQJNGK NAIL, 6 OR MORE 08/24/2024 95298-Fygv Destruction, 1-14 05/25/2024 50162-Vfjc Destruction, 1-14 09/28/2023 15424-Joto Destruction, 1-14 01/13/2024 90123-Wnfh Destruction, 1-14 11/02/2023 77379-Jqhu Destruction, 1-14 12/09/2023 28096-Smxv Destruction, 1-14 08/26/2023 63432-Okfw Destruction, 1-14 04/20/2023 11721-Fkacnxmz Plate 04/20/2023 89188-Ceycbzpu Plate 01/13/2024 30229-Dwctvbfp Plate Each Additional 05/2023 42427-RJYY SKIN LESIONS, 2 TO 4 04/20/19 24 70907-GNQB SKIN LESIONS, 2 TO 4 08/26/19 24 17553-OLQC SKIN LESIONS, 2 TO 4 11/02/19 24 30177-LHXD SKIN LESIONS, 2 TO 4 05/26/19 25 84686-KMAG SKIN LESIONS, 2 TO 4 01/13/20 24 60308-MFMJ SKIN LESIONS, 2 TO 4 08/25/19 25 Next Appt Details Provider Name:Raymundo Mosqueda Antonella , 11/30/2024 01:45:00 PM, [address] [facility], [facility] [address], [place], [address], Insurance Providers Payer Name Payer Address Payer Phone Subscriber Number Group Number Insured Name Patient Relationship to Insured Coverage Start Date Coverage End Date [facility] [employer] Claims [address] [place] [address] [id number] Ayaak Johnson Self - patient is the insured Medical (General) History Medical History History ICD Code Anxiety Arthritis asthma Back pain Depression Diabetic Fibromyalgia High blood pressure Chicken pox Joint implants/screws Bone implants/screws Surgical History Surgery Date(Month/Year) Breast Surgery 2023
--- OUTSIDE RECORDS SUMMARY | 2024-10-04 15:37 | XMS_ITS | Clinical Summary ---
Author Organization [facility] Address [address] [address] Phone Care Team Providers Care Rodding Anode Worker Name Role Phone Pcp, Unknown Primary Care [...] file Medical Devices Not on file Insurance [facility] MED[facility] REPLACEMENT [place] [id number] [facility] MEDICARE REPLACEMENT [facility] MEDICARE [facility]PLACEMENT [facility] MEDICARE REPLACEMENT [facility] MEDICARE REPLACEMENT [place] [address] MEDICARE REPLACEMENT Care Teams Rodding Anode Worker Relationship Specialty Start Date End Date Pcp, Unknown PCP - General 05/11/24 Additional Source Comments The information contained in this document represents components of the legal health record. It is not the complete legal health record.[facility]
[2024-10-04 18:35] LABS: MANUAL DIFF FLAG NO
[2024-10-04 19:06] LABS: Alanine Aminotransferase 26 U/L (0-31); Albumin Level 4.5 g/dL (3.5-5.0); Alkaline Phosphatase 95 U/L (39-117); Anion Gap 16 (12-20); Aspartate Amino Transferase 30 U/L (5-31); Blood Urea Nitrogen 18 mg/dL (9-16); Calcium 9.6 mg/dL (8.4-10.2); Carbon Dioxide 24 mmol/L (22-29); Chloride 104 mmol/L (96-108); Estimated Glomerular Filt Rate > 60; Potassium 5.2 mmol/L (3.3-5.1); Sodium 139 mmol/L (135-145); Total Protein 7.6 g/dL (6.5-8.0)
[2024-10-04 19:07] LABS: Hematocrit 45.1 % (37.0-47.0); Hemoglobin 15.0 g/dl (12.0-16.0); Imm Gran Abs Auto 0.03 X10*3/uL (0.00-0.03); Imm Gran Pct Auto 0.3 % (0.0-0.4); Lymphocytes Absolute Auto 2.7 X10*3/uL (1.2-4.9); Mean Corpuscular HGB Conc 33.3 g/dl (31.0-35.0); Mean Corpuscular Hemoglobin 29.1 pg (27.0-33.0); Mean Corpuscular Volume 87.6 fL (80.0-98.0); NRBC Abs Auto 0.000 X10*3/uL (0.0-0.012); NRBC Pct Auto 0.0 /100WBC (0.0-0.2); Platelet Count 327 X10*3/uL (160-400); Red Blood Count 5.15 X10*6/uL (4.20-5.50); White Blood Count 8.7 X10*3/uL (4.8-10.8)
[2024-10-04 19:32] LABS: Folate 9.3 ng/mL (> or = 4.0); Vitamin B12 490 pg/mL (200-900)
[2024-10-08 12:43] LABS: Anti Nuclear Antibody Pattern Nuclear, Nucleolar; Anti Nuclear Antibody Screen POSITIVE (NEGATIVE); Anti Nuclear Antibody Titer 1:160 titer
[2024-10-08 14:43] LABS: Vitamin D 25-OH, D2 <4 ng/mL; Vitamin D 25-OH, D3 31 ng/mL; Vitamin D 25-OH, Total 31 ng/mL (30-100)
== END 2024-10-04 14:16 | disposition home or self-care (01) ==
LOC: HO.HKASLDS 14:15
PROVIDERS: Visit Provider Nurse Practitioner Family
DX: Z01.84 Encounter for antibody response examination (principal); R76.8 Other specified abnormal immunological findings in serum; M19.90 Unspecified osteoarthritis, unspecified site; M25.50 Pain in unspecified joint; E55.9 Vitamin D deficiency, unspecified
CPT/HCPCS: 36415; 80053; 82306; 82607; 82746; 84443; 85025; 85652; 86038; 86039; 86140; 86431

== ENCOUNTER 2025-01-25 12:51 | Outpatient (AMB) | payer OTHER, SELFPAY ==
--- OUTSIDE RECORDS SUMMARY | 2024-02-22 08:00 | XMS_ITS ---
[facility] Address [address] [place] [address] Care Team Providers Care Drawbridge Operator Name Role Phone Antonella Raymundo Unavailable [phone] Encounters Encounter Location Date Provider Diagnosis [facility] [address] [address] 02/22/2024 Raymundo Berman Plan Of Treatment Next Appt Details Provider Name:Raymundo Berman , 03/22/2025 01:45:00 PM, [address] [facility], [place] [address], [place], [address], Progress Notes * Ayaka NAVARRETEDOB:[birth year] (69 yo F)Acc No.[id number]:02/22/2024 Progress Notes Patient: Ayaka RAMIREZ Provider: Vicenta Berman DPM :1955 A ge:68 Y S ex:Female Date:02/22/2024 Address:[address], [place], [place] Subjective: * Chief Complaints: * * Medical History: Objective: * Vitals: Assessment: Plan: * Treatment: * Images: * The named appointment provid er may or may not be the originator of this progress note, and it is not deemed complete until electronically signed by the appointment provider. Sign off status: Pending * Provider: Vicenta Berman DPM Date: 0 02/22/2024 Generated for Wendy matson/[place] on: 1 03/28/2024 07:47 PM EST
--- NOTE | 2025-01-25 12:57 | MHC.OFFVIS ---
Vital Signs 01/25/25 12:58 Height 4 ft 10 in Weight 142 lb 3.17 oz BMI 29.7 BP 132/72 Blood Pressure Location Lt brachial Position Sitting Pulse 87 Pulse Source Pulse Oximeter Pulse Oximetry (%) 95 Oxygen Delivery Method Room Air Intake Visit Reasons: osteoarthritis/ New Patient Intake Note: Patient is a new patient, internally referred by Oly Rojas for +DEREK, Joint pain. She complains of bilateral knee pain today. Senior Test Engineer Required: Yes Senior Test Engineer Services: Senior Test Engineer Present Senior Test Engineer Name: Rinku [id number] Information Interpreted: non-clinical & clinical Accompanied by: Self / Same As Patient Allergies Sulfa (Sulfonamide Antibiotics) Allergy (Severe, Verified 09/26/24 13:38) Anaphylaxis Penicillins Allergy (Mild, Verified 09/26/24 13:38) Anaphylaxis HPI Comments Details: 69-year-old female with diabetes on continous monitoring, previous stroke presenting as a new patient for evaluation of joint pain. She states she has joint pain which is diffuse, all over her body. Joint pain is in her wrist elbow shoulders in her neck knees ankles and in her lower back. Her joint pain started in 10 years ago and has been told by doctors in [place] that she has osteoarthritis and fibromyalgia . She states she has stiffness in joints all the time. She also states that she had tendon ruptured in the shoulders many years ago due to which her range of motion of the shoulders is limited. She also as numbness in the left arm and left foot, and is on lyrica which helps her numbness tingling She has no active synovitis noted today. no swelling of joints ROS: she endorses photosensitivity, no oral ulcers, no hair fall, no miscarriage, no blood clot, no raynauds, no bloody diarrhea, On lab work she has had DEREK 1:160 nuclear pattern, negative RF, FH: no family history of autoimmune disease PHYSICAL EXAM General: Comfortable CVS: RRR Respiratory: clear to auscultation bilaterally. Good respiratory effort Skin: No lesions seen MSK: Patient was able to make a fist bilaterally with both hands. No active synovitis noted in any of the MCPs PIPs. No tenderness elicited on palpation of the MCPs PIPs. Patient does have limited range of motion of the shoulders. She has limited range of motion of the hips. She has tenderness on flexion and extension of the knees. She has fibromyalgia tender points positive. ON LICENSE OF [facility] Medical History Chronic migraine without aura, not intractable Carpal tunnel syndrome Lumbar spondylosis Hearing loss Stroke Dysphagia Weakness Numbness Surgical History H/O: H/O shoulder surgery H/O breast surgery H/O hernia repair Social History Alcohol intake: never Patient Tobacco Use Status: Current everyday Tobacco user Assessment & Plan Assessment & Plan (1) Positive DEREK (antinuclear antibody): Code(s): R76.8 - Other specified abnormal immunological findings in serum Category: Medical (2) Osteoarthritis: Code(s): M19.90 - Unspecified osteoarthritis, unspecified site Category: Medical (3) Arthralgia: Code(s): M25.50 - Pain in unspecified joint Category: Medical (4) Numbness and tingling of left upper extremity: Code(s): R20.0 - Anesthesia of skin; R20.2 - Paresthesia of skin Category: Medical (5) Numbness of left lower extremity: Code(s): R20.0 - Anesthesia of skin Category: Medical (6) Numbness and tingling of left upper extremity: Code(s): R20.0 - Anesthesia of skin; R20.2 - Paresthesia of skin Category: Medical (7) Numbness of left lower extremity: Code(s): R20.0 - Anesthesia of skin Category: Medical Plan Based on her history, physical exam and blood work her joint pain is most likely attributed to osteoarthritis of the hands shoulders and knees along with superimposed fibromyalgia. I see no evidence of active synovitis, and no signs of inflammatory arthritis like rheumatoid arthritis, psoriatic arthritis. Clinically, she does not exhibit signs and symptoms of SLE despite having a positive DEREK. She also does not fulfill the criteria for having other connective tissue diseases. To further workup her joint pain I will order bilateral hand x-rays and knee x-rays to make sure she has no stigmata of inflammatory arthritis. I will also complete blood work including DEREK subsets, C3-C4, urine studies. For her numbness and tingling of the left upper and lower extremity, I will order nerve conduction studies and EMG. Her TSH vitamin B12 levels were normal, her numbness and tingling could be secondary to diabetic neuropathy however I will go ahead and conduct the nerve conduction studies to elucidate her cause of numbness and tingling For her fibromyalgia, we discussed various pharmacologic and nonpharmacological measures. Patient requested to have Flexeril on board as she has had previous good response to Flexeril in terms of her fibromyalgia, I will refill this as per her request. She would like to hold off on physical therapy right now due to the weather and would like to pursue this after winter is over. Follow up in 3 weeks to discuss the results of her blood work and imaging Orders: Orders XR Hand Morales 2V Today M19.90 - Unspecified osteoarthritis, unspecified site, M25.50 - Pain in unspecified joint, R76.8 - Other specified abnormal immunological findings in serum Cyclic Citrullinated Peptide Today R76.0 - Raised antibody titer DNA Double Stranded-Crithidia Today R76.0 - Raised antibody titer Complement C3 Today R76.0 - Raised antibody titer Complement C4 Today R76.0 - Raised antibody titer NE electromyogram (EMG) Today R20.0 - Anesthesia of skin NE nerve conduction velocity Today R20.0 - Anesthesia of skin, R20.2 - Paresthesia of skin XR Knee Morales 1or 2V Today M19.90 - Unspecified osteoarthritis, unspecified site, M25.50 - Pain in unspecified joint, R76.8 - Other specified abnormal immunological findings in serum Anti DNA DS Antibody Today R76.0 - Raised antibody titer Sm Sm/CHIP SEPARATOR Antibodies Today R76.0 - Raised antibody titer Sjogren's Antibodies Today R76.0 - Raised antibody titer Scleroderma 70 Antibody Today R76.0 - Raised antibody titer Scleroderma 12 Panel Today R76.0 - Raised antibody titer Anti-Centromere B Antibodies Today R76.0 - Raised antibody titer UA ClnCatch+Micro w/rflx Cult Today R76.0 - Raised antibody titer Protein Creatinine Ratio, Ur Today R76.0 - Raised antibody titer XR Shoulder Morales min 2V Today M19.90 - Unspecified osteoarthritis, unspecified site, M25.50 - Pain in unspecified joint, R76.8 - Other specified abnormal immunological findings in serum NE electromyogram (EMG) Today R20.0 - Anesthesia of skin, R20.2 - Paresthesia of skin NE nerve conduction velocity Today R20.0 - Anesthesia of skin Medications: Refilled cyclobenzaprine 10 mg PO BID PRN 60 tabs 3RF muscle spasm 30 days Coding Level of Care Code New Pt Level 4 (92241) Diagnoses Positive DEREK (antinuclear antibody) R76.8 Osteoarthritis M19.90 Arthralgia M25.50 Numbness and tingling of left upper extremity R20.0; R20.2 Numbness of left lower extremity R20.0
[2025-01-25 12:58] VITALS: BP 132/72; PULSE 87; O2SAT 95; BMI 29.7
--- OUTSIDE RECORDS SUMMARY | 2025-01-25 19:46 | XMS_ITS | Data Portability ---
Author Organization [place] [facility], Allergy Address [address] [place] [address] Care Team Providers Care Will Call Order Clerk Name Role Phone MALISSA MONTALVO Primary Care Provider Assessment Encounter Date Assessment Date Assessment LastModified by Organization Details LastModified Time 02/29/2024 02/29/2024 68-year-old fema le smoker with history of right parotid abscess presents for reevaluation of right face and neck pain. Patient trialed clindamycin for 10 days, and reports pain worsened. Patient reports significant submandibular and anterior cervical tenderness bilaterally. No masses or lymphadenopathy are appreciated. Cerumen impactions removed bilaterally per patient request. Otologic exam is unremarkable. Recommend CT neck with contrast to investigate abscess vs mass vs muscular etiology. Ordered thyroid panel per patient request. Will call patient with results. [email or web address] Not available 02/29/2024 17:47:15 04/20/2024 04/20/2024 68-year-old pakistani-speaking female with history of right parotid abscess presents with MANAGEMENT AIDE for CT neck results. She reports continued pain in right face and neck. No improvement with Clindamycin. Exam demonstrates right serous effusion. Nasal endoscopy appears benign without nasal mass or obstruction. CT neck w/contrast on 04/12/24 at [facility] demonstrated right periparotid enlarged lymph nodes and left 12 mm parotid lesion. Ordered FNA 10 days ago, and patient is waiting for call to schedule. Recommend intranasal Fluticasone and autoinsufflation, with ear reevaluation in 3 months. We will hold off on oral steroid for middle ear effusion due to uncontrolled diabetes. Current every day smoker. [email or web address] Not available 04/20/2024 12:18:39 06/13/2024 06/13/2024 68-year-old pakistani-speaking female with history of right parotid abscess presents with MANAGEMENT AIDE for parotid lesion biopsy results. Unfortunately, the biopsy on 05/11/[address] Guallpa was non-diagnostic. Cerumen impactions removed bilaterally. TMs are normal to inspection. Parotid swelling has improved. No discrete parotid mass with palpation. Recommend repeat parotid lesion ultrasound-guided biopsy with Dr. Land at [facility]. Will also obtain modified barium swallow study to investigate swallow mechanics. Patient will return for follow up in [address] neck w/contrast on 04/12/24 at [facility] demonstrated right periparotid enlarged lymph nodes and left 12 mm parotid lesion. [email or web address] Not available 06/13/2024 17:10:30 11/15/2024 11/15/2024 69yo female presents for reevaluation of left-sided parotid lesion and neck pain. CT neck w/contrast on 04/12/24 at [facility] demonstrated right periparotid enlarged lymph nodes and left 12 mm parotid lesion. Biopsy of this lesion with Dr. Land at [facility] was negative for malignancy. Reassured patient regarding normal results. She endorses intermittent discomfort in this area, stable compared to prior visit. She is scheduled for swallow study at [facility] 12/22/2024, and will review results after test. Cerumen impactions removed bilaterally without difficulty. Physical examination is unremarkable without obvious lymphadenopathy or neck swelling. Will refill intranasal fluticasone and oral cetirizine as requested. She will return when convenient for formal audiometric testing. All questions answered. [email or web address] Not available 11/15/2024 16:36:04 12/13/2024 12/13/2024 69-year-old Citizen Of [place]-speaking female with subjective allergic rhinitis and longstanding eustachian tube dysfunction presents for hearing evaluation. She is a prior patient of Dr. Foster. Bilateral tinnitus and left-sided aural fullness are stable. TMs are generally retracted, but there are no unsafe retraction pockets or debris collection. Left TM is scarred, making it difficult to assess the middle ear space. Audiometric testing demonstrates mixed hearing loss bilaterally, with age-related changes compared to testing in 2019. Tympanometry is type B, suggestive of thickened TMs or pinpoint perforation. CT temporal bone in 2019 was negative for evidence of middle ear pathology. Recommend continuing daily intranasal fluticasone with opposite hand technique and daily oral antihistamine for allergy management. Will refer to Dr. Khalil for otologic evaluation prior to recommending amplification for the left ear. [email or web address] Not available 12/13/2024 23:22:33 Plan of Treatment Reminders Order Date Submit Date Provider Last Modified By Organization Details Last Modified Time Details Appointments Test Results 10 2024 02:30P M LEIA KHALIL MD Not available Not available Not available Lab thyroid panel, serum 2024 025 [facility] (Centralized Electronic Ordering - All Locations), Patient Can Go To The Location Of Their Choice, [id number] 03/24/2024 12:48:20 Referral None recorded . Procedures fine needle aspirati on, salivary gland (PROC) - Dr. Land 2024 025 [facility], [address] [place] [address], [id number], 06/13/2024 16:27:46 fine needle aspirati on, salivary gland (PROC) 2024 025 [facility], [address] [place] [address], [id number], 05/19/2024 10:03:50 Surgeries None recorded . Imaging [place], modified barium swallow study 2024 025 [facility] Centralized Scheduling([facility]), [address] [place], [address], 09/23/2024 15:35:52 CT, neck, soft tissue, w/ contrast [address] [facility] [place], [address] , [address], [address], 03/08/2024 11:53:10 Medication Orders fluticas one propiona te 50 mcg/actu ation nasal spray,boothe spension 2024 025 [facility], [address] [place], [address], 01/17/2025 10:50:41 cetirizi ne 10 mg tablet 2024 025 [facility], [address] [place], [address], 11/28/2024 13:42:25 fluticas one propiona te 50 mcg/actu ation nasal spray,booteh spension 2024 025 [id number], [address] [place], [place], [id number], 04/20/2024 11:58:42 Patient TargetsNo targets recorded. Patient InstructionsNo instructions recorded. Reason for Referral None Reported. Results Created Date Observation Date Name Description Value Unit Range Abnormal Flag Note LastModifiedBy Organization Detail LastModifiedTime 03/23/1903/24/2024 THYRO ID PANEL WITH TSH TSH 1.230 uIU/m L 0.450- 4.500 normal Not Available [facility] ([facility]) [address] [place], [address], 03/24/2024 07:18:03 03/23/19 25 03/24/2024 THYRO ID PANEL WITH TSH thyroxine (T4) 8.5 ug/dL 4.5-12 .0 normal Not Available [facility] ([facility]) [address] [place], [address], 03/24/2024 07:18:03 03/23/19 25 03/24/2024 THYRO ID PANEL WITH TSH T3 uptake 20 % 24-39 below low normal Not Available [facility] ([facility]) [address] [place], [address], 03/24/2024 07:18:03 03/23/19 25 03/24/2024 THYRO ID PANEL WITH TSH free thyroxine index 1.7 1.2-4. 9 normal Not Available [facility] ([facility]) [address] [place], [address], 03/24/2024 07:18:03 04/13/1904/12/2024 CT, neck, soft tissu e, w/ contr ast No observ ation record ed. [email or web address] [facility] [place] [address] [facility] [address], [place], [address], 04/13/2024 13:05:48 04/21/19 25 04/12/2024 CT, neck, soft tissu e, w/ contr ast No observ ation record ed. [email or web address] Not Available 06/2024 13:44:44 12/14/19 audio gram No observ ation record ed. BARCODE Not Available 2024 18:40:21 Result Notes None recorded. Problems Name Problem SNOMED Code Status Onset Date Resolution Date Notes Provider Name and Address Organization Details Recorded Time Dizziness and giddiness 164107624 Active 2018 Dizziness and giddiness ; Note: Date Diagnosed : 04/20/2018 11:04 AM (R42) Not Available [facility] 4 02:36:48 Otorrhea of bilateral ears [id number] 17665 Active 2018 Otorrhea, bilateral ; Note: Date Diagnosed : 09/07/2018 5:51 PM (H92.13) Not Available [facility] 4 02:36:55 Sensorine ural hearing loss of bilateral ears 372924808 Active 2018 Sensorine ural hearing loss, bilateral ; Note: Date Diagnosed : 09/07/2018 3:49 PM (H90.3) Not Available [facility] 4 02:36:51 Perforati on of left tympanic membrane 01364437542 33953 Active 2018 Unspecifi ed perforati on of tympanic membrane, left ear; Note: Date Diagnosed : 10/21/2018 3:32 PM (H72.92) Not Available [facility] 4 02:36:57 Dysphagia 03952059 Active 2020 Dysphagia , unspecifi ed; Note: Date Diagnosed : 05/17/2020 1:57 PM (R13.10) DOROTA RAMIRES PA-C [address] [place] [address] [address], [facility] [place], [address] , [place] - [facility] 5 16:35:52 Impacted cerumen of bilateral ears [id number] 75544 Active 2020 Impacted cerumen, bilateral ; Note: Date Diagnosed : 11/23/2020 3:45 PM (H61.23) DOROTA RAMIRES PA-C [address],[place] [facility], [place], [address] , [place] - [facility] 5 16:35:57 Itching of skin 092364778 Active 2020 Other pruritus; Note: Date Diagnosed : 11/23/2020 3:46 PM (L29.8) Not Available [facility] 4 02:36:45 Sialoaden itis 04492873 Active 2021 Sialoaden itis, unspecifi ed; Note: Date Diagnosed : 08/27/2021 12:14 PM (K11.20) Not Available [facility] 4 02:36:55 Type 2 diabetes mellitus without complicat ion 069003158 Active 2021 Type 2 diabetes mellitus without complicat ions; Note: Date Diagnosed : 11/05/2021 4:30 PM (E11.9) Not Available [facility] 4 02:37:01 Allergic rhinitis 89257407 Active 2021 Allergic rhinitis, unspecifi ed; Note: Date Diagnosed : 2 4:55 PM (J30.9) DOROTA RAMIRES PA-C [address],[place] [address], [place], [address] , [place] - [facility] 5 16:07:44 Bilateral disorder of Eustachia n tubes 02551827307 18440 Active 2022 Other specified disorders of Eustachia n tube, bilateral ; Note: Date Diagnosed : 10/07/2022 10:27 AM (H69.83) Other specified disorders of Eustachia n tube, bilateral ; Note: Date Diagnosed : 04/20/2018 11:04 AM (H69.83) ; Start Date : 9 Not Available [facility] 4 02:36:53 Neck swelling 591246331 Active 2023 DOROTA RAMIRES PA-C [address],[place] [facility], [place], [address] , [facility] - [facility] 4 10:48:56 Parotitis 53996331 Active 2023 DOROTA RAMIRES PA-C [address],[place] [facility], [place], [address] , [place] - [facility] 5 16:08:59 Lesion of salivary gland 622083908 Active 2024 DOROTA RAMIRES PA-C [address],[place] [facility], [place], [address] , [place] - [facility] 5 16:28:22 Acute serous otitis media of right ear 95754499336 72469 Active 2024 DOROTA RAMIRES PA-C [address],[place] [address], [place], [address] , [place] - [facility] 5 11:57:18 Mixed conductiv e and sensorine ural hearing loss, bilateral 212264141 Active 2024 LINA DYE [address],[place] [address], [place], [address] , [facility] - [facility] 5 16:04:21 Bilateral tinnitus 59991347627 02 Active 2024 DOROTA RAMIRES PA-C [address],[place] [facility], [place], [address] , [facility] - [facility] 5 23:13:12 Problem Notes None recorded. Procedures Surgical History Date Name Laterality Status Provider Name and Address Organization Details Recorded Time 12/14/19 25 Tympanometry - 13577 completed LINA DYE [address] [address], [place], [address], [place] - [facility] 12/13/2024 16:05:47 12/14/19 25 [employer] - 37593 completed TASHA ENMANUEL, AUD [address],[place] [address], [place], [address], [place] - [facility] 12/13/2024 16:05:37 11/16/19 25 Cerumen removal without microscope bilat completed DOROTA RAMIRES PA-C [address],[place] [address], [place], [address], [place] - [facility] 11/15/2024 16:27:21 06/14/19 25 Cerumen removal without microscope bilat completed DOROTA RAMIRES PA-C [address],[place] [address], [place], [address], [place] - [facility] 06/13/2024 16:03:11 04/21/19 25 Nasal Endoscopy completed DOROTA RAMIRES PA-C [address],[place] [address], [place], [address], [place] - [facility] 04/20/2024 11:54:44 02/28/19 25 Cerumen removal without microscope bilat completed DOROTA RAMIRES PA-C [address],[place] [address], [place], [address], [place] - [facility] 02/29/2024 14:05:46 Imaging Results None recorded. Procedure Notes None recorded. Medical Equipment None Reported. Allergies Allergen ID Allergen Name Allergen Category Reaction Reaction Severity Criticality Documentation Date Start Date Code Code System Note Provider Name and Address Organization Details Recorded Time 59824 penicilli n V potassium medicatio n other Not available Not available 06/30/202355679 5 RxNorm React ion: unkno wn, unspe cifie d;; Not Available [facility] 4 01:02:14 37251 Substance with sulfonami de structure and antibacte rial mechanism of action (substanc e) medicatio n other Not available Not available 06/30/2023 37678 8003 SNOMED React ion: unkno wn, unspe cifie d;; Not Available [facility] 4 01:02:17 Medications Name Sig Start Date Stop Date Status Note LastModified by Organization Details LastModified Time cyclobenz aprine 10 mg tablet TAKE 1 TABLET BY MOUTH TWICE DAILY NEEDED FOR MUSCLE SPASM FOR 30 DAYS active Not Available Not Available No t Available atorvasta tin 40 mg tablet 2021 active Medicati on ID: [id number] B rand Name: atorvast atin Sen d Method: E-Prescr ibed Sub s Allowed: subs OK Medic ationGen ericName : atorvast atin Not Available Not Available Not Available BD Alcohol Swabs 02/02 completed Medicati on ID: [id number] B rand Name: BD Alcohol Swabs Se nd Method: E-Prescr ibed Sub s Allowed: subs OK Medic ationGen ericName : BD Alcohol Swabs Not Available Not Available Not Available acetamino phen 325 mg tablet active Not Available Not Available No t Available nicotine 14 mg/24 hr daily transderm al patch 2021 active Medicati on ID: [id number] B rand Name: nicotine Send Method: E-Prescr ibed Sub s Allowed: subs OK Medic ationGen ericName : nicotine Not Available Not Available Not Available nabumeton e 750 mg tablet 08/27 completed Medicati on ID: [id number] D uration Value: 30 Brand Name: nabumeto ne Send Method: E-Prescr ibed Sub s Allowed: subs OK Speci al Instruct ion: TK 1 T PO BID Medi cationGe nericNam e: nabumeto ne Not Available Not Available Not Available tizanidin e 2 mg tablet active Not Available Not Available Not Available clindamyc in HCl 300 mg capsule 1 capsule every 6 hours for 10 days 06/13 completed Not Available Not Available Not Available albuterol sulfate 2.5 mg/3 mL (0.083 %) solution for nebulizat ion USE ONE VIAL EVERY 4 TO 6 HOURS NEEDED FOR WHEEZING /SHORTNE SS OF BREATH active Not Available Not Available No t Available diphenhyd ramine 50 mg capsule Take 1 capsule by mouth as directed 2021 active Medicati on ID: [id number] D uration Value: 1 Prescri bed By Name: ANUPAM Lawson nd Name: diphenhy dramine HCl Send Method: E-Prescr ibed Sub s Allowed: subs OK Speci al Instruct ion: Take 2 hours prior to study Me dication GenericN lina: diphenhy dramine HCl Not Available Not Available Not Available trazodone 50 mg tablet TAKE 1 TABLET BY MOUTH EVERY NIGHT active Not Available Not Available No t Available cetirizin e 10 mg tablet Take 1 tablet every day by oral route at bedtime for 42 days, for environm ental allergie s. 2024 active Not Available Not Available Not Avai lable azithromy suzie 250 mg tablet 02/02 completed Not Available Not Available Not Available albuterol sulfate 1.25 mg/3 mL solution for nebulizat ion 02/02 completed Not Available Not Available Not Available sumatript an 100 mg tablet TAKE 1/2 TO 1 TABLET BY MOUTH ONSET OF HEADACHE MAY REPEAT IN TWO HOURS NEEDED. MAX 2 TABLETS DAILY AND 4 TABLETS A WEEK active Not Available Not Available No t Available Nystop 100,000 unit/gram topical powder APPLY 1 APPLICAT ION EXTERNAL LY TO THE AFFECTED AREA TWICE DAILY FOR 10 DAYS. active Not Available Not Available No t Available FreeStyle Lancets 28 gauge 2021 active Medicati on ID: [id number] B rand Name: FreeStyl e Lancets Send Method: E-Prescr ibed Sub s Allowed: subs OK Medic ationGen ericName : FreeStyl e Lancets Not Available Not Available Not Available prednison e 20 mg tablet 02/02 completed Not Available Not Available Not Available Medrol 32 mg tablet Take 1 tablet by mouth as directed 02/02 completed Medicati on ID: [id number] D uration Value: 1 Prescri bed By Name: ANUPAM Lawson nd Name: Medrol S end Method: E-Prescr ibed Sub s Allowed: subs OK Speci al Instruct ion: Take 1 tab 12 hours prior to study and 1 tab 2 hours prior to study. M edjesso Dennis Name: Medrol Not Available Not Available Not Available metronida zole 500 mg tablet 10/07 completed Medicati on ID: [id number] B rand Name: metronid azole Se nd Method: E-Prescr ibed Sub s Allowed: subs OK Medic ationGen ericName : metronid azole Not Available Not Available Not Available omeprazol e 40 mg capsule,d elayed release 08/27 completed Medicati on ID: [id number] D uration Value: 90 Brand Name: omeprazo le Send Method: E-Prescr ibed Sub s Allowed: subs OK Medic ationGen ericName : omeprazo le Not Available Not Available Not Available tramadol 50 mg tablet 2021 active Medicati on ID: [id number] B rand Name: tramadol Send Method: E-Prescr ibed Sub s Allowed: subs OK Medic ationGen ericName : tramadol Not Available Not Available Not Available acetamino phen 500 mg tablet 10/07 completed Medicati on ID: [id number] B rand Name: acetamin ophen Se nd Method: E-Prescr ibed Sub s Allowed: subs OK Medic ationGen ericName : acetamin ophen Not Available Not Available Not Available magnesium oxide 400 mg (241.3 mg magnesium ) tablet TAKE 1 TABLET BY MOUTH AT BEDTIME. MAY HOLD FOR LOOSE STOOLS active Not Available Not Available No t Available trazodone 100 mg tablet TAKE 1 TABLET BY MOUTH EVERY NIGHT active Not Available Not Available No t Available dicyclomi ne 20 mg tablet TAKE 1 TABLET BY MOUTH EVERY 12 HOURS NEEDED FOR ABDOMINA L PAIN OR MILD PAIN active Not Available Not Available No t Available amitripty line 10 mg tablet TAKE 1 TO 2 TABLETS BY MOUTH EVERY NIGHT AT BEDTIME active Not Available Not Available No t Available amlodipin e 10 mg tablet TAKE 1 TABLET BY MOUTH DAILY active Not Available Not Available No t Available trazodone 150 mg tablet TAKE 1 TABLET BY MOUTH EVERY NIGHT active Not Available Not Available No t Available nitrofura ntoin macrocrys kaden 100 mg capsule 02/02 completed Not Available Not Available Not Available dexametha sone 4 mg tablet 10/07 completed Medicati on ID: [id number] B rand Name: dexameth asone Se nd Method: E-Prescr ibed Sub s Allowed: subs OK Medic ationGen ericName : dexameth asone Not Available Not Available Not Available glimepiri de 4 mg tablet 08/27 completed Medicati on ID: [id number] D uration Value: 30 Brand Name: glimepir madeline Send Method: E-Prescr ibed Sub s Allowed: subs OK Speci al Instruct ion: TK 1 T PO D Medica tionGene ricName: glimepir madeline Not Available Not Available Not Available gabapenti n 300 mg capsule active Medicati on ID: [id number] B rand Name: gabapent in Send Method: E-Prescr ibed Sub s Allowed: subs OK Medic ationGen ericName : gabapent in Not Available Not Available Not Available omeprazol e 20 mg capsule,d elayed release TAKE 1 CAPSULE BY MOUTH DAILY active Not Available Not Available No t Available capsaicin 0.025 % topical cream active Not Available Not Available Not Available mirtazapi ne 15 mg tablet TAKE 1 TABLET BY MOUTH EVERY NIGHT AT BEDTIME active Not Available Not Available No t Available Novolog U-100 Insulin aspart 100 unit/mL subcutane ous solution active Not Available Not Available Not Available ibuprofen 600 mg tablet Take 1 tablet 3 times a day by oral route as needed. active Not Available Not Available No t Available levofloxa suzie 500 mg tablet 10/07 completed Medicati on ID: [id number] B rand Name: levoflox acin Sen d Method: E-Prescr ibed Sub s Allowed: subs OK Medic ationGen ericName : levoflox acin Not Available Not Available Not Available zolpidem 10 mg tablet active Not Available Not Available Not Available albuterol sulfate HFA 90 mcg/actua tion aerosol inhaler INHALE 2 PUFFS BY MOUTH EVERY 4 HOURS NEEDED FOR WHEEZING active Not Available Not Available No t Available morphine 15 mg immediate release tablet TAKE 1/2 TABLET BY MOUTH TWICE DAILY FOR 7 DAYS NEEDED FOR PAIN active Not Available Not Available No t Available fluticaso ne propionat e 50 mcg/actua tion nasal spray,facundo pension Sharon 2 sprays every day by intranas al route as directed for 42 days, for environm ental allergie s. 2024 active Not Available Not Available Not Avai lable metformin ER 500 mg tablet,ex tended release 24 hr 2021 active Medicati on ID: [id number] B rand Name: metformi n Send Method: E-Prescr ibed Sub s Allowed: subs OK Medic ationGen ericName : metformi n Not Available Not Available Not Available loratadin e 10 mg tablet active Not Available Not Available Not Available naproxen 500 mg tablet 10/07 completed Medicati on ID: [id number] B rand Name: naproxen Send Method: E-Prescr ibed Sub s Allowed: subs OK Medic ationGen ericName : naproxen Not Available Not Available Not Available nicotine 7 mg/24 hr daily transderm al patch active Not Available Not Available Not Available oxycodone 5 mg tablet TAKE 1 TABLET BY MOUTH TWICE DAILY NEEDED FOR PAIN active Not Available Not Available No t Available Novolog FlexPen U-100 Insulin aspart 100 unit/mL (3 mL) subcutane ous INJECT 8 UNITS UNDER THE SKIN THREE TIMES DAILY BEFORE MEALS active Not Available Not Available No t Available rosuvasta tin 40 mg tablet TAKE 1 TABLET BY MOUTH DAILY. REPLACES ATORVAST ATIN active Not Available Not Available No t Available mirtazapi ne 7.5 mg tablet TAKE 1 TABLET BY MOUTH EVERY NIGHT AT BEDTIME active Not Available Not Available No t Available duloxetin e 30 mg capsule,d elayed release active Not Available Not Available Not Available duloxetin e 60 mg capsule,d elayed release TAKE 2 CAPSULES BY MOUTH DAILY active Not Available Not Available No t Available pregabali n 75 mg capsule active Not Available Not Available Not Available ramelteon 8 mg tablet active Not Available Not Available Not Available Ranitidin e Hcl 08/27 completed Medicati on ID: [id number] D uration Value: 90 Brand Name: ranitidi ne hcl Send Method: E-Prescr ibed Sub s Allowed: subs OK Speci al Instruct ion: TK 1 T PO BID Medi cationGe nericNam e: ranitidi ne hcl Not Available Not Available Not Available BD Ultra-Fin e Short Pen Needle 31 gauge x 5/16 USE DIRECTED FOUR TIMES DAILY active Not Available Not Available No t Available DermOtic Oil 0.01 % ear drops 2 drop 08/27 completed Medicati on ID: [id number] P rescribe d By Name: ANUPAM Lawson nd Name: DermOtic Oil Send Method: E-Prescr ibed Sub s Allowed: subs OK Medic ationGen ericName : DermOtic Oil Not Available Not Available Not Available quetiapin e 50 mg tablet active Not Available Not Available Not Available FreeStyle Lite Strips 2021 active Medicati on ID: [id number] B rand Name: FreeStyl e Lite Strips S end Method: E-Prescr ibed Sub s Allowed: subs OK Medic ationGen ericName : FreeStyl e Lite Strips Not Available Not Available Not Available Lantus Solostar U-100 Insulin 100 unit/mL (3 mL) subcutane ous pen active Not Available Not Available Not Available trospium ER 60 mg capsule,e xtended release 24 hr TAKE 1 CAPSULE BY MOUTH DAILY IN THE MORNING active Not Available Not Available No t Available GaviLyte- G 236 gram-22.7 4 gram-6.74 gram-5.86 gram oral solution MIX AND DRINK 240 ML BY MOUTH EVERY 10 MINUTES active Not Available Not Available No t Available riboflavi n (vitamin B2) 400 mg tablet TAKE 1 TABLET BY MOUTH DAILY active Not Available Not Available No t Available Omnipod Dash Pods (Gen 4) subcutane ous cartridge CHANGE POD EVERY 72 HOURS active Not Available Not Available No t Available Wixela Inhub 100 mcg-50 mcg/dose powder for inhalatio n INHALE 1 PUFF BY MOUTH TWICE DAILY. RINSE MOUTH AND THROAT AFTER USE active Not Available Not Available No t Available FreeStyle Marilia 2 Sensor kit active Not Available Not Available Not Available Dexcom G7 Merchandise Marker active Not Available Not Available Not Available FreeStyle Marilia 2 Plus Sensor device USE DIRECTED FOR DIABETES CONTROL AND CHANGE EVERY 15 DAYS. E11.9 active Not Available Not Available No t Available Vitals Date Recorded Body height Body mass index (BMI) Body weight Provider Name and Address Organization Details Last Updated DateTime 02/29/2024 147.32 cm 30.5 kg/m2 79400.49 g Vivien Nunez [place] [facility] 02/29/2024 13:45:53 Date Recorded Body height Body mass index (BMI) Body weight Provider Name and Address Organization Details Last Updated DateTime 04/20/2024 147.32 cm 29.3 kg/m2 75918.93 g Tracie Chino [place] [facility] 04/20/2024 11:28:26 Date Recorded Body height Body mass index (BMI) Body weight Provider Name and Address Organization Details Last Updated DateTime 06/13/2024 147.32 cm 30.3 kg/m2 19090.89 g Tracie Ch[place] [facility] 06/13/2024 15:49:43 Date Recorded Body height Body mass index (BMI) Body weight Provider Name and Address Organization Details Last Updated DateTime 11/15/2024 147.32 cm 30.3 kg/m2 57502.89 g Vivien Nunez [facility] 11/15/2024 15:31:32 Date Recorded Body height Body mass index (BMI) Body weight Heart rate Systolic And Diastolic Provider Name and Address Organization Details Last Updated DateTime 12/13/2024 147.32 cm 30.3 kg/m2 35232.89 g 68 /min 124/74 mm[Hg] Tracie Chino [facility] 12/13/2024 16:18:43 Social History None recorded. Functional Status None recorded. Mental Status None recorded. Family History Nothing Reported. Medical History Condition Response Allergies/Hayfever Y Diabetes Y Hearing Loss Y Hypertension Y Gynecological HistoryNo gynecological history recorded. Obstetrics History GPAL:G 0 P 0 0 0 0 Past Encounters Encounter ID Performer Location Encounter Start Date Encounter Closed Date Diagnosis/Indication Diagnosis SNOMED-CT Code Diagnosis ICD10 Code Diagnosis IMO Codes Diagnosis Note [id number] DOROTA RAMIRES PA-C [facility] [address] [address] 02/03/2024 10:11:49 02/03/2024 11:17:12 Sialoadenitis 02212189 K11.20 [id number] DOROTA RAMIRES PA-C [facility] [address] [address] 02/29/2024 13:21:53 02/29/2024 14:12:13 Neck swelling 221193736 R22.1 Impacted c erumen of bilateral ears 4221924018 201176 H61.23 [id number] DOROTA RAMIRES PA-C [facility] [address] [address] 04/20/2024 11:20:38 04/20/2024 16:53:33 Lesion of salivary gland 189147338 K11.9 left 12 mm parotid lesion. Patient has a left parotid lesion that I recommend we obtain tissue sampling. Given its location I would like to have ultrasound -guided needle aspiration biopsy performed at a nearby radiology center. My office will assist in arranging for this procedure. We reviewed the potential risks not limited to bleeding, numbness, swelling and facial weakness. We discussed the potential diagnoses including malignancy , benign process, insufficie nt specimen or non-diagno stic. Typically pathology results will become available within the next two weeks. We may review results and develop a treatment plan with a telehealth or an in person visit if they request. Acute sero us otitis media of right ear 7012490889 260255 H65.01 [id number] DOROTA RAMIRES PA-C [facility] [address] [address] 06/13/2024 15:41:33 06/13/2024 16:13:51 Lesion of salivary gland 478070951 K11.9 Impacted c erumen of bilateral ears 5354556881 124912 H61.23 Dysphagia 80153075 R13.1 0 [id number] DOROTA RAMIRES PA-C [facility] [address] [address] 11/15/2024 15:24:38 11/15/2024 16:13:59 Allergic rhinitis 99280647 J30.9 Lesion of salivary gland 264492591 K11.9 Dysphagia 90247028 R13.1 0 Scheduled for swallow study 12/22/24 Impacted c erumen of bilateral ears 6671703751 454394 H61.23 [id number] DOROTA RAMIRES PA-C [facility] [address] [address] 12/13/2024 15:31:44 12/23/2024 08:46:12 Mixed conductive and sensorineural hearing loss, bilateral 938334615 H90.6 [id number] Audiologic al evaluation results: 12/13/2024 Right ear: Mild flat mixed hearing loss with Left ear: Mild sloping to a moderate mixed hearing loss with Tympanomet ry: Right Ear:Type B Left Ear:Type B Allergic rhinitis 786475 04 J30.9 Bilateral tinnitus 86550 31832 102 H93.13 634715 Perforatio n of left tympanic membrane 5091023896 395680 H72.92 Health Concerns Section Related Observation LastModified by Organization Detai ls LastModified Time None Recorded Concern Status LastModified by Organization Details LastModified Time None Recorded Advance Directives Directive None Recorded Payers Insurance Date Sequence Insurance Name Policy Number Policy Pandey Covered Member ID Pandey Member ID Guarantor Name 06/13/2024 1 [facility] - DOS ON OR AFTER 2022 - MEDICARE [place]VANTAGE [place] (MEDICARE REPLACEMENT/AD VANTAGE - PPO) Ayaka Landon [id number] Ayaka Landon 12/23/2024 1 [facility] - DOS ON OR AFTER 2022 - ONE C[employer] (MEDICARE REPLACEMENT/AD VANTAGE - HMO) Ayaka Barron Landon [id number] Ayaka Landon Notes Date Note Type Note Provider Name and Address Organization Details Recorded Time 02/29/2024 text/html 68-year-old female smoker with history of right parotid abscess presents for reevaluation of right face and neck swelling. She trialed Clindamycin for 10 days without symptom relief. She reports that facial and neck swelling has worsened. Endorses weight loss in the last few months. CHRISTIANA GUALLPA MD [address] [facility],[address], [address], [place] - [facility] 02/29/2024 22:24:04 04/20/2024 text/html ROS as noted in the [facility] 68-year-old female smoker with history of right parotid abscess presents with MANAGEMENT AIDE for CT neck results. She reports continued pain in right face and neck. No improvement with Clindamycin. CT neck w/contrast 04/12/24 demonstrated right periparotid enlarged lymph nodes and LEFT 12 mm parotid lesion. Ordered FNA 10 days ago for further investigation, patient waiting for call to schedule. Thyroid panel showed isolated low T3, faxed to primary care. Patient with type 2 diabetes. KYLIE WATKINS MD [address] [facility],[address], [address], [place] - [facility] 04/20/2024 17:00:03 06/13/2024 text/html ROS as noted in the [facility] 68-year-old pakistani-speaking female with history of right parotid abscess presents with MANAGEMENT AIDE for parotid lesion biopsy results. Unfortunately, the biopsy 05/11/[address] Guallpa was non-diagnostic. We recommended repeat biopsy with Dr. Land at [facility], and patient has not heard from them yet. Reports left-sided facial inflammation and left ear pain. This is stable compared to prior presents. Follow-up treatment with clindamycin. Nasal endoscopy was benign 04/20/2024. CT neck w/contrast on 04/12/24 at [facility] demonstrated right periparotid enlarged lymph nodes and left 12 mm parotid lesion. CHRISTIANA GUALLPA MD [address] [facility],[address], [address], [facility] 06/13/2024 22:05:38 11/15/2024 text/html ROS as noted in the [facility] 69yo female presents for reevaluation of left-sided parotitis and neck pain. CT neck w/contrast on 04/12/24 at [facility] demonstrated right periparotid enlarged lymph nodes and left 12 mm parotid lesion. She had biopsy of a parotid lesion 05/05/[address] Guallpa, which was nondiagnostic. She has since had a biopsy with Dr. Land at [facility], which was negative for malignancy. She endorses intermittent discomfort in this area, stable compared to prior visit. CHRISTIANA GUALLPA MD [address] [facility],[address], [address], [facility] 11/16/2024 09:50:34 12/13/2024 text/html ROS as noted in the [facility] 69-year-old Citizen Of [place]-speaking female presents for hearing evaluation. Endorses tinnitus, right > left. No room-spinning dizziness. She reports longstanding fullness in the left ear. She is able to pop the ears. She required multiple sets of ear tubes in [place] during childhood. She has underlying environmental allergies, which she manages with daily Flonase and cetirizine. No recent history of ear infections. LEIA KHALIL MD [facility],[address], [address], [facility] 12/22/2024 12:28:08 OBGyn Episode No OBEpisode recorded.
--- OUTSIDE RECORDS SUMMARY | 2025-01-25 19:47 | XMS_ITS | Patient Health Record ---
[facility] Organization [facility] Address [address] [place] [address] Care Team Providers Care Post Anesthesia Room Nurse Name Role Phone Raymundo Berman Unavailable [phone] Allergies Allergen (clinical drug ingredient) Drug/Non Drug Allergy documented on EMR Reaction Allergy Type Onset Date Status Penicillin Unknown Drug Allergy Active Substance with sulfonamide structure and antibacterial mechanism of action (substance) Sulfa Antibiotics Unknown Drug Allergy Active Results Component Value Reference Range Notes HEMOGLOBIN A1C (GLYCOHEMOGLO BIN) Reviewed date:08/24/2024 01:48:19 PM Interpretation: Performing Lab: Notes/Report: HEMOGLOBIN A1C % (HH) 7.5 HEMOGLOBIN A1C (GLYCOHEMOGLO BIN) Reviewed date:11/30/2024 02:04:33 PM Interpretation: Performing Lab: Notes/Report: HEMOGLOBIN A1C % (HH) 8.9 Reason For Referral No Information Medications Medication SIG (Take, Route, Frequency, Duration) Notes Start Date End Date Status DULoxetine HCl 60 MG Oral; Duration: 30 Days Active Fluticasone-Salmeterol 100-50 MCG/ACT Inhalation; Duration: 90 Days Active Lantus SoloStar 100 UNIT/ML Subcutaneous; Duration: 53 Days Active NovoLOG 100 UNIT/ML Injection; Duration: 30 Days Active Dicyclomine HCl 20 MG Oral; Duration: 7 Days Active Gabapentin 300 MG TAKE 1 CAPSULE BY MO UTH AT BEDTIME Oral; Duration: 30 Days Not-Taking Amitriptyline HCl 10 MG TAKE 1 TO 2 TABL ETS BY MOUTH AT BEDTIME DIRECTED Oral; Duration: 15 Days Active Vitamin B50 Complex 08/26/2023 Active traZODone HCl 100 MG Oral; Duration: 30 Days Active Extra Depth Orthopedic Shoes, (1) Pair With (3) Pair Custom Heat Molded Multidensity Innersoles Dx: NIDDM/PVD(E11.51), Hammertoe Foot Deformity(M20.41,M20.42) , Preulcerative Skin Lesion(s)(L85.1) Wear Daily; Duration: 365 days Active Albuterol Sulfate HFA 108 (90 Base) MCG/ACT Inhalation; Duration: 16 Days Active Wixela Inhub 100-50 MCG/ACT Inhalation; Duration: 90 Days Active amLODIPine Besylate 10 MG Oral; Duration: 90 Days Acti ve tiZANidine HCl 2 MG Oral; Duration: 15 Days Active Pregabalin 75 MG TAKE 1 CAPSULE BY MO UTH TWICE DAILY Oral; Duration: 30 Days Active Magnesium Oxide -Mg Supplement 400 (240 Mg) MG Oral; Duration: 30 Days Acti ve Omeprazole 20 MG Oral; Duration: 90 Days Active Ramelteon 8 MG TAKE 1 TABLET BY KOFI TH EVERY NIGHT AT BEDTIME Oral; Duration: 30 Days Active SUMAtriptan Succinate 100 MG Oral; Duration: 24 Days Acti ve Acetaminophen 325 MG TAKE 2 TABLETS BY M OUTH EVERY 6 HOURS NEEDED FOR PAIN Oral; Duration: 6 Days Active Zolpidem Tartrate 10 MG Oral; Duration: 30 Days Active Immunizations Vaccine Route Administration Date Status Comme nts Influenza Unknown 10/19/2023 Administered Influenza Unknown 10/19/2024 Administered Social History Tobacco Use: Social History [...] Problem Acquired hammer toe of right foot (6622580393805 105) Other hammer toe(s) (acquired), right foot (M20.41) Active confirmed Response to treatment,I mprovement Problem Type 2 diabetes mellitus with peripheral angiopathy (702525585) Type 2 diabetes mellitus with diabetic peripheral angiopathy without gangrene (E11.51) Active confirmed Q7(A), Q8(2B), Q9(1B,2C) Problem Acquired hammer toe of left foot (9788495884544 103) Other hammer toe(s) (acquired), left foot (M20.42) Active confirmed Response to treatment,I mprovement Problem Plantar wart (30569647) Plantar wart (B07.0) Active confirmed Vital Signs Blood pressure diastolic 78 mm Hg 11/30/2024 Height 0xz52ab in 11/30/2024 Blood pressure systolic 121 mm Hg 11/30/2024 Weight 140 lbs 11/30/2024 BMI 29.26 kg/m2 11/30/2024 Procedures Procedure Date Ordered Date Performed Result Body Sit e 55459-JHNPWOO NAIL, 6 OR MORE 05/25/2024 N/A 80188-Gupa Destruction, 1-14 05/25/2024 N/A 36850-OOSB SKIN LESIONS, 2 TO 4 05/25/2024 N/A 71919-PSGIKOZ NAIL, 6 OR MORE 08/24/2024 N/A 79710-LFZR SKIN LESIONS, 2 TO 4 08/24/2024 N/A 34705-REZLVQN NAIL, 6 OR MORE 11/30/2024 N/A 65698-Vwqz Destruction, 1-14 11/30/2024 N/A 32771-BSYK SKIN LESIONS, 2 TO 4 11/30/2024 N/A Encounters Encounter Location Date Provider Diagnosis [address] [address] 05/25/2024 Raymundo Berman Type 2 diabetes mellitus with diabetic peripheral angiopathy without gangrene E11.51 ; Tinea unguium B35.1 ; Pain in right toe(s) M79.674 ; Pain in left toe(s) M79.675 ; Right foot pain M79.671 and Plantar wart B07.[address] [facility] [address] 08/24/2024 Raymundo Berman Type 2 diabetes mellitus with diabetic peripheral angiopathy without gangrene E11.51 ; Other hammer toe(s) (acquired), right foot M20.41 ; Tinea unguium B35.1 ; Pain in right toe(s) M79.674 ; Pain in left toe(s) M79.675 and Other hammer toe(s) (acquired), left foot M20.[address] [facility] [address] 11/30/2024 Raymundo Berman Type 2 diabetes mellitus with diabetic peripheral angiopathy without gangrene E11.51 ; Tinea unguium B35.1 ; Pain in right toe(s) M79.674 ; Pain in left toe(s) M79.675 ; Right foot pain M79.671 and Plantar wart B07.[address] [address] 02/22/2024 Raymundo Berman Assessments Encounter Date Diagnosis (ICD Code) Assessment Notes Treatment Notes Treatment Clinical Notes Section Notes 05/25/2024 Tinea unguium (ICD-10 - B35.1) 05/25/2024 Type 2 diabetes mellitus with diabetic peripheral angiopathy without gangrene (ICD-10 - E11.51) Q7(A), Q8(2B), Q9(1B,2C) 08/24/2024 Other hammer toe(s) (acquired), right foot (ICD-10 - M20.41) Patient Educated with: DIABETIC FOOT CARE INSTRUCTIONS.p df (DIABETIC FOOT CARE INSTRUCTIONS.p df) 08/24/2024 Type 2 diabetes mellitus with diabetic peripheral angiopathy without gangrene (ICD-10 - E11.51) 11/30/2024 Type 2 diabetes mellitus with diabetic peripheral angiopathy without gangrene (ICD-10 - E11.51) 11/30/2024 Tinea unguium (ICD-10 - B35.1) 08/24/2024 Tinea unguium (ICD-10 - B35.1) 05/25/2024 Pain in right toe(s) (ICD-10 - M79.674) 11/30/2024 Pain in right toe(s) (ICD-10 - M79.674) 08/24/2024 Pain in right toe(s) (ICD-10 - M79.674) 11/30/2024 Pain in left toe(s) (ICD-10 - M79.675) 05/25/2024 Pain in left toe(s) (ICD-10 - M79.675) 05/25/2024 Right foot pain (ICD-10 - M79.671) 08/24/2024 Pain in left toe(s) (ICD-10 - M79.675) 11/30/2024 Right foot pain (ICD-10 - M79.671) 11/30/2024 Plantar wart (ICD-10 - B07.0) 08/24/2024 Other hammer toe(s) (acquired), left foot (ICD-10 - M20.42) 05/25/2024 Plantar wart (ICD-10 - B07.0) Plan Of Treatment Pending Test Test Name Order Date 16651-QLKVUZM NAIL, 6 OR MORE 04/20/2023 96455-BZFQCDE NAIL, 6 OR MORE 08/26/2023 22885-NFTOCXW NAIL, 6 OR MORE 11/02/2023 58237-ZOYDRCY NAIL, 6 OR MORE 01/13/2024 41266-TGQTIEJ NAIL, 6 OR MORE 05/25/2024 90539-DUJBUOH NAIL, 6 OR MORE 08/24/2024 09764-BROWHAU NAIL, 6 OR MORE 11/30/2024 12011-Tije Destruction, 1-14 11/30/2024 41793-Ycse Destruction, -14 05/25/2024 29155-Iwoo Destruction, -14 09/28/2023 33785-Hdde Destruction, -14 01/13/2024 99804-Yumc Destruction, -14 11/02/2023 85385-Opfr Destruction, -14 12/09/2023 44404-Ufpi Destruction, -14 08/26/2023 03763-Pijt Destruction, -14 04/20/2023 20860-Eorcibay Plate 04/20/2023 13405-Nvrtnznc Plate 01/13/2024 00516-Xpymeymf Plate Each Additional 05/2023 90598-DWMV SKIN LESIONS, 2 TO 4 04/20/19 22831-VQHT SKIN LESIONS, 2 TO 4 08/26/19 24 58807-TIED SKIN LESIONS, 2 TO 4 11/02/19 24 88112-SSFU SKIN LESIONS, 2 TO 4 05/26/19 25 42695-WUPX SKIN LESIONS, 2 TO 4 01/13/20 24 09857-XGPC SKIN LESIONS, 2 TO 4 12/01/19 25 99346-EVJZ SKIN LESIONS, 2 TO 4 08/25/19 Next Appt Details Provider Name:Raymundo Mosqueda Antonella , 03/22/2025 01:45:00 PM, [address] [facility] [address], [place], [address], Insurance Providers Payer Name Payer Address Payer Phone Subscriber Number Group Number Insured Name Patient Relationship to Insured Coverage Start Date Coverage End Date [facility] [employer] Claims [address] [place] [id number] Ayaka Johnson Self - patient is the insured Medical (General) History Medical History History ICD Code Anxiety Arthritis asthma Back pain Depression Diabetic Fibromyalgia High blood pressure Chicken pox Joint implants/screws Bone implants/screws Surgical History Surgery Date(Month/Year) Breast Surgery 2023
--- OUTSIDE RECORDS SUMMARY | 2025-01-25 19:47 | XMS_ITS | Clinical Summary ---
Author Organization [facility] Address [address] [place] [address] Phone Care Team Providers Care Vinyl Hanger Name Role Phone Physician, Pcp Unknown Primary Care Provider Cheryl vailable Allergies Active Allergy Reactions Criticality Noted Date Comments Penicillin V Potassium Other 12/19/2024 penicillin V potassium Sulfa (Sulfonamide Antibiotics) Other 12/19/2024 Substance with sulfonamide structure and antibacterial mechanism of action (substance) Medications amLODIPine (NORVASC) 10 mg tablet Take 1 tablet (10 mg total) by mouth 1 (one) time each day. 5 Active cetirizine (ZyrTEC) 10 mg tablet Take 1 tablet (10 mg total) by mouth 1 (one) time each day. 5 Active clonazePAM (KlonoPIN) 1 mg tablet Take 1 tablet (1 mg total) by mouth at bedtime. 5 Active cyclobenzaprine (FLEXERIL) 10 mg tablet Take 1 tablet (10 mg total) by mouth 2 (two) times a day if needed for muscle spasms. Active dicyclomine (BENTYL) 20 mg tablet Take 1 tablet (20 mg total) by mouth 2 (two) times a day. Active fluticasone propionate (FLONASE) 50 mcg/actuation nasal spray Administer 2 sprays into each nostril 1 (one) time each day. 5 Active Ajovy Autoinjector 225 mg/1.5 mL auto-injector Inject 1.5 mL (225 mg total) under the skin every 28 (twenty-eight) days. 5 Active mirtazapine (REMERON) 45 mg tablet Take 1 tablet (45 mg total) by mouth at bedtime. 5 Active omeprazole (PriLOSEC) [address] capsule Take 1 capsule (20 mg total) by mouth 1 (one) time each day. 5 Active riboflavin (VITAMIN B2) 400 mg tablet Take 1 tablet (400 mg total) by mouth 1 (one) time each day. Active rosuvastatin (CRESTOR) 40 mg tablet Take 1 tablet (40 mg total) by mouth at bedtime. 5 Active amitriptyline (ELAVIL) 10 mg tablet Take 1 tablet (10 mg total) by mouth at bedtime. 3 Active nicotine (NICODERM CQ) 14 mg/[address] 1 patch on the skin 1 (one) time each day. 30 each 5 Active aspirin 81 mg EC tablet Take 1 tablet (81 mg total) by mouth 1 (one) time each day. 30 each 5 12/21/19 26 Active meloxicam (MOBIC) 15 mg tablet Take 1 tablet (15 mg total) by mouth 1 (one) time each day if needed for mild pain or moderate pain. 5 Active Active Problems Problem Noted Date Diagnosed Date TIA (transient ischemic attack) 12/19/2024 Encounters Date Type Department Care Team Description 12/19/2024 4:07 PM EST - 12/20/2024 12:53 PM EST Hospital Encounter [facility] [address] [place] [id number] Sally Nieves MD Seralathan, Manikandan, MD Bell, Alistair A, MD Cerebrovascular accident (CVA), unspecified mechanism (CMS/HCC V24, CMS/HCC V28) (Primary Dx) Discharge Disposition: Home or Self Care from Last 3 Months Medical History Medical History Date Comments CVA (cerebral vascular accident) (CMS/HCC V24, C [place]/HCC V28) HTN (hypertension) HLD (hyperlipidemia) Diabetes mellitus (CMS/HCC V24, CMS/HCC V28) Anxiety and depression Migraine GERD (gastroesophageal reflux disease) Social History Tobacco Use Types Packs/Day Years Used Date Smoking Tobacco: Every Day Cigarettes Smokeless Tobacco: Never Tobacco Cessation:Ready to Q uit: Not Asked; Counseling Given: Not Answered Alcohol Use Standard Drinks/Week Comments Not Currently 0 (1 standard drink = 0.6 oz pur e alcohol) Housing Instability Answer Date Recorde d Are you worried that in the next 2 months you may not have stable housing? No 12/19/2024 Food Access & Nutrition Answer Date Rec orded Do you have access to a vari ety of food including fruits and vegetables? Yes 12/19/2024 Health Literacy Answer Date Recorded How often do you need to hav e someone help you when you read instructions, pamphlets, or other written material from your doctor or pharmacy? Sometimes 12/19/2024 Caregiver: How often do you need to have someone help you when you read instructions, pamphlets, or other written material from your doctor or pharmacy? Not on file 12/19/2024 Financial Risk Answer Date Recorded How hard is it for you to pa y for the very basics like food, housing, medical care, and air conditioning / heating? Not very hard 12/19/2024 Transportation Answer Date Recorded Has the lack of transportati on kept you from meetings, work, or from getting things needed for daily living? No Has the lack of transportati on kept you from medical appointments or from getting medications? No 12/19/2024 Social Isolation Answer Date Recorded How often do you feel lonely or isolated from th ose around you? Never 12/19/2024 Food Risk Answer Date Recorded Within the past 12 months we worried whether our food would run out before we got money to buy more. Never true 12/19/2024 Within the past 12 months th e food we bought just didn't last and we didn't have money to get more. Never true 12/19/2024 Dependent Care Answer Date Recorded Do you need help finding or paying for care for your loved ones. For example, child center assistant or elderly care for an older adult? No 12/19/2024 Education Answer Date Recorded Do you think completing more education or training, like finishing a GED, going to college, or learning a trade, would be helpful for you? N/A 12/19/2024 Employment and Income Answer Date Recor ded During the last four weeks, have you been actively looking for work? No 12/19/2024 Living Situation Answer Date Recorded What is your living situation? Unrecognized valu e 12/19/2024 Interpersonal Safety Answer Date Record ed Physical Abuse Unrecognized value 12/19/2024 Verbal Abuse Unrecognized value 12/19/2024 Comments No Sex and Gender Information Value Date Recorded Sex Assigned at Not on file Legal Sex Female 4:50 AM EST Gender Identity Not on file Sexual Orientation Not on file Last Filed Vital Signs Vital Sign Reading Time Taken Comments Blood Pressure 122/53 12/20/2024 8:01 AM EST Pulse 74 12/20/2024 8:01 AM EST Temperature 36.1 C (97 F) 12/20/2024 8:01 AM EST Respiratory Rate 17 12/20/2024 8:01 AM EST Oxygen Saturation 99% 12/20/2024 8:01 AM EST Inhaled Oxygen Concentration - - Weight 63.1 kg (139 lb 3.2 oz) 12/19/2024 8:15 P M EST Height 147.3 cm (4' 10 ) 12/19/2024 2:03 PM EST Body Mass Index 29.09 12/19/2024 2:03 PM EST Plan of Treatment Health Maintenance Due Date Last Done Comments Breast Cancer Screening 1957 Colorectal Cancer Screening: Colonoscopy 1957 Diabetes: Annual Foot Exam 10/18/1967 Diabetes: Annual Retina Eye Exam 10/18/1967 Pneumococcal Vaccine: 50+ Years (1 of 2 - PCV) 1976 RSV Immunization Adult Patients (1 - Risk 50-74 years 1-dose series) 10/18/2007 Zoster Vaccines (1 of 2) 10/18/2007 Hepatitis C Screening 01/19/2022 Medicare Annual Wellness Visit 01/19/2022 Osteoporosis Screening (Bone Density Screening) 01/19/2022 Depression Screening 02/17/2024 Diabetes: Annual Urine Albumin-Creatinine Ratio (uACR) 09/27/2024 COVID-19 Vaccine ( - 2024-2 6 season) 2024 Influenza Vaccine (#1) 2024 1, 11/09/2019, 02/25/2019 Diabetes: Blood Sugar Contro l Test (HGBA1C) 06/19/2025 12/20/2024 Social Influencers of Health Screening 12/19/2025 12/19/2024 Diabetes: Annual GFR (Glomerular Filtration Rate) 12/20/2025 12/20/2024, 12/19/2024 Falls Risk Assessment 12/20/2025 12/20/2024 Hypertension/CHF/CAD Annual BMP Blood Test 12/20/2025 12/20/2024, 12/19/2024 DTaP,Tdap,and Td Vaccines (2 - Td or Tdap) 07/18/2028 07/18/2018 Cholesterol Screening (Lipid Panel) 12/20/2029 12/20/2024 HIB Vaccines Aged Out No longer eligi [...] to complete this topic RSV Immunization Patients Under 20 months Aged Out No longer eligible b ased on patient's age to complete this topic Varicella Vaccines Aged Out No longer eligible based on patient's age to complete this topic Procedures Procedure Name Priority Date/Time Associated Diagnosis Comments POCT GLUCOSE BLOOD Routine 12/20/2024 7: 59 AM EST LIPID PANEL WITH REFLEX TO DIRECT LDL Routine 12/20/2024 5:52 AM EST BASIC METABOLIC PANEL Routine 12/20/2024 5:52 AM EST COMPLETE BLOOD COUNT Routine 12/20/2024 5:52 AM EST HEMOGLOBIN A1C Routine 12/20/2024 5:52 AM EST ECG ANNOTATED 12/20/2024 MR BRAIN WO CONTRAST Routine 12/19/2024 9:[address] ANGIO HEAD/NECK WO AND/OR W CONTRAST STAT 12/19/2024 6:09 PM EST ECG 12-LEAD Routine 12/19/2024 4:46 PM EST CBC WITH AUTO DIFFERENTIAL STAT 12/19/2024 3:42 PM EST ACTIVATED PARTIAL THROMBOPLASTIN TIME STAT 12/19/2024 3:42 PM EST PROTHROMBIN TIME WITH INR STAT 12/19/2024 3:42 PM EST BASIC METABOLIC PANEL STAT 12/19/2024 3:42 PM EST CBC AND DIFFERENTIAL STAT 12/19/2024 3:42 PM EST from Last 3 Months Results * (ABNORMAL) POCT Glucose, blood (12/20/2024 7:59 AM EST) [facility] Glucose POCT 166(H) 70 - 100 mg/dL 12/20/2024 8:00 AM EST [facility] Blood Capillary blood specimen / Unknown 12/20/2024 7:59 AM EST 12/20/2024 8:03 AM EST us Miguel Yancey MD LAB POINT OF CARE TE ST DOCKED DEVICE UNSOLICITED RESULTS Final Result [facility] [address] [place] [address], [place] [phone] * (ABNORMAL) Lipid panel with reflex to direct LDL (12/20/2024 5:52 AM EST) [facility] Cholesterol 205(H) 0 - 200 mg/dL LAB CHEMISTRY METHOD 12/20/2024 7:50 AM EST [facility] Triglycerides 161(H) 0 - 150 mg/dL LAB CHEMISTRY METHOD 12/20/2024 7:50 AM EST [facility] HDL 47 >=40 mg/dL LAB CHEMISTRY METHOD 12/20/2024 7:50 AM [facility] LDL Calculated 126(H) 0 - 100 mg/dL LAB CHEMISTRY METHOD 12/20/2024 7:50 AM [facility] Comment:Estimated LDL Calcul ated using equation: Total cholesterol - HDL cholesterol - (Triglycerides/5) VLDL Cholesterol Shmuel 32.2 mg/dL LAB CHEMISTRY METHOD 12/20/2024 7:50 AM [facility] Non HDL Chol. (LDL+VLDL) 158(H) <145 mg/dL LAB CHEMISTRY METHOD 12/20/2024 7:50 AM [facility] Chol/HDL Ratio 4.4 0.0 - 4.4 LAB CHEMISTRY METHOD 12/20/2024 7:50 AM [facility] Blood Venous blood specimen / Unknown Venipuncture / Unknown 12/20/2024 5:52 AM EST 12/20/2024 6:19 AM EST us Yvonne Boo COLD ROLL INSPECTOR LAB BLOOD ORDERABLES Final Resu lt [facility] [address] [place] [address], [place] [phone] * (ABNORMAL) Complete blood count (12/20/2024 5:52 AM EST) WBC 6.7 4.8 - 10.8 K/[facility] LAB HEMETOLOGY METHOD 12/20/2024 6:53 AM [facility] RBC 5.10(H) 3.80 - 4.80 M/[facility] LAB HEMETOLOGY METHOD 12/20/2024 6:53 AM [facility] Hemoglobin 14.5 11.5 - 16.0 g/dL LAB HEMETOLOGY METHOD 12/20/2024 6:53 AM [facility] Hematocrit 44.0 35.0 - 47.0 % LAB HEMETOLOGY METHOD 12/20/2024 6:53 AM EST [facility] MCV 86.1 79.0 - 98.0 FL LAB HEMETOLOGY METHOD 12/20/2024 6:53 AM EST [facility] MCH 28.4 27.0 - 32.0 pcg LAB HEMETOLOGY METHOD 12/20/2024 6:53 AM EST [facility] MCHC 33.0 32.0 - 37.0 g/dL LAB HEMETOLOGY METHOD 12/20/2024 6:53 AM EST [facility] RDW 13.7 11.0 - 15.0 % LAB HEMETOLOGY METHOD 12/20/2024 6:53 AM [facility] Platelets 279 130 - 400 K/mcL LAB HEMETOLOGY METHOD 12/20/2024 6:53 AM EST [facility] MPV 10.2 7.0 - 11.0 FL LAB HEMETOLOGY METHOD 12/20/2024 6:53 AM EST [facility] NRBC 0.0 <1.0 % LAB HEMETOLOGY METHOD 12/20/2024 6:53 AM [facility] NRBC Absolute 0.00 <0.10 K/mcL LAB HEMETOLOGY METHOD 12/20/2024 6:53 AM [facility] Blood Venous blood specimen / Unknown Venipuncture / Unknown 12/20/2024 5:52 AM EST 12/20/2024 6:15 AM EST us Yvonne Boo NP LAB BLOOD ORDERABLES Final Resu lt [facility] [address] [place] [address], * (ABNORMAL) Hemoglobin A1c (12/20/2024 5:52 AM EST) Hemoglobin A1C 8.2(H) <6.5 % LAB CHEMISTRY METHOD 12/20/2024 11:15 AM [facility] Mean Bld Glu Estim. 189 mg/dL LAB CHEMISTRY METHOD 12/20/2024 11:15 AM [facility] Blood Venous blood specimen / Unknown Venipuncture / Unknown 12/20/2024 5:52 AM EST 12/20/2024 6:15 AM EST us Yvonne Boo COLD ROLL INSPECTOR LAB BLOOD ORDERABLES Final Resu lt [facility] [address] [place] [address], * (ABNORMAL) Basic metabolic panel (12/20/2024 5:52 AM EST) Only the most recent of2 resultswithin the time period is included. Sodium 140 133 - 145 mmol/L LAB CHEMISTRY METHOD 12/20/2024 7:50 AM [facility] Potassium 4.2 3.5 - 5.5 mmol/L LAB CHEMISTRY METHOD 12/20/2024 7:50 AM [facility] Chloride 105 96 - 110 mmol/L LAB CHEMISTRY METHOD 12/20/2024 7:50 AM [facility] CO2 29 21 - 32 mmol/L LAB CHEMISTRY METHOD 12/20/2024 7:50 AM [facility] Anion Gap 6 3 - 11 LAB CHEMISTRY METHOD 12/20/2024 7:50 AM [facility] Glucose 165(H) 70 - 100 mg/dL LAB CHEMISTRY METHOD 12/20/2024 7:50 AM [facility] BUN 12 5 - 25 mg/dL LAB CHEMISTRY METHOD 12/20/2024 7:50 AM [facility] Creatinine 0.76 0.50 - 1.10 mg/dL LAB CHEMISTRY METHOD 12/20/2024 7:50 AM [facility] eGFR 86 >=60 mL/min/1. 73m2 LAB CHEMISTRY METHOD 12/20/2024 7:50 AM EST [facility] Comment:Calculation based on the Chronic Kidney Disease Epidemiology Collaboration (CKD-EPI) equation refit without adjustment for race. BUN/Creatinine Ratio 15.8 LAB CHEMISTRY METHOD 12/20/2024 7:50 AM EST [facility] Calcium 9.4 8.5 - 10.5 mg/dL LAB CHEMISTRY METHOD 12/20/2024 7:50 AM EST [facility] Blood Venous blood specimen / Unknown Venipuncture / Unknown 12/20/2024 5:52 AM EST 12/20/2024 6:19 AM EST us Yvonne Boo NP LAB BLOOD ORDERABLES Final Resu lt [facility] [address] [place] [address], * ECG-Annotated (12/20/2024) us Provider Onbase MD ECG ORDERABLES Final Result * MR Brain wo Contrast (12/19/2024 9:13 PM EST) Anatomical Region Laterality Modality Head and Neck Magnetic Resonan ce 12/19/2024 10:1 3 PM EST Addenda Addendum by Travis Stringer MD on 12/19/2024 10:14 PM EST ADDENDUM: T2 bright small lymph nodes within the bilateral parotid glands larger on the left measures 8 mm. This document has been electronically signed by: Travis Stringer DO on 12/19/2024 22:14:09 Impressions 12/19/2024 10:13 PM EST 1. No acute intracranial process. No restricted diffusion to indicate acute ischemic event. 2. Subcortical/periventricular T2/FLAIR signal intensities most consistent with changes of chronic microvascular ischemic disease. 3. No intra-axial mass lesion or hemorrhage. 4. Fluid within the right mastoid air cells. This document has been electronically signed by: Travis Stringer DO on 12/19/2024 22:13:43 Narrative 12/19/2024 10:13 PM EST INDICATION: cerebrovascular accident MR Brain without gadolinium Comparison: CT - CT ANGIO HEAD NECK WO AND OR W CONTRAST - 12/19/24 18:02 EST Findings: No restricted diffusion to indicate acute ischemic event. Subcortical and periventricular T2/FLAIR signal intensity most consistent with changes of chronic microvascular ischemic disease. No intra-axial mass or hemorrhage. No midline shift. No hydrocephalus. Vascular flow voids are intact. Orbital contents are unremarkable. Fluid within the right mastoid air cells. No focal bone lesion. Procedure Note Travis Stringer MD - 12/19/2024 INDICATION: cerebrovascular accident MR Brain without gadolinium Comparison: CT - CT ANGIO HEAD NECK WO AND OR W CONTRAST - 12/19/24 18:02 EST Findings: No restricted diffusion to indicate acute ischemic event. Subcortical and periventricular T2/FLAIR signal intensity mostconsistent with changes of chronic microvascular ischemic disease. No intra-axial mass or hemorrhage. No midline shift. No hydrocephalus. Vascular flow voids are intact. Orbital contents are unremarkable. Fluid within the right mastoid air cells. No focal bone lesion. IMPRESSION: 1. No acute intracranial process. No restricted diffusion to indicate acute ischemic event. 2. Subcortical/periventricular T2/FLAIR signal intensities mostconsistent with changes of chronic microvascular ischemic disease. 3. No intra-axial mass lesion or hemorrhage. 4. Fluid within the right mastoid air cells. This document has been electronically signed by: Travis Stringer DO on 12/19/2024 22:13:43 Yvonne Boo NP IM MRI PROCEDURES Edited Resul t - Final * CT Angio Head/Neck wo and/or w Contrast (12/19/2024 6:09 PM EST) Anatomical Region Laterality Modality Head and Neck Computed Tomogra phy 12/19/2024 6:44 PM EST Impressions 12/19/2024 6:44 PM EST Impression: 1. No acute intracranial abnormalities. 2. Unremarkable CTA of the head and neck. This document has been electronically signed by: Efrain Doyle MD on 12/19/2024 18:44:31 Narrative 12/19/2024 6:44 PM EST INDICATION: L sided weakness Exam: Unenhanced CT brain, and contrast-enhanced CTA head and neck with multiplanar reformats. Comparison: None. Findings: Nonenhanced CT brain: No intracranial mass, midline shift, hydrocephalus, or acute hemorrhage. No CT evidence of acute ischemia. Visualized paranasal sinuses and mastoid air cells normal. Orbits unremarkable. No skull fracture. CTA head: There is good opacification of the bilateral anterior and posterior intracranial arterial circulation. No large vessel occlusion or significant intracranial arterial stenoses. No definable truncation of flow. No evidence of aneurysm or vascular malformation. No venous thrombosis or enhancing parenchymal lesions. CTA neck: Unremarkable aortic arch. Common and internal carotid arteries are patent bilaterally. Vertebral arteries are patent bilaterally. No occlusion, hemodynamically significant stenoses or evidence of dissection. Visualized pulmonary apices are clear. No neck masses or adenopathy. No destructive osseous lesions. Procedure Note Efrain Doyle MD - 12/19/2024 INDICATION: L sided weakness Exam: Unenhanced CT brain, and contrast-enhanced CTA head and neck with multiplanar reformats. Comparison: None. Findings: Nonenhanced CT brain: No intracranial mass, midline shift,hydrocephalus, or acute hemorrhage. No CT evidence of acute ischemia. Visualized paranasal sinuses and mastoid air cells normal. Orbits unremarkable. No skull fracture. CTA head: There is good opacification of the bilateral anterior and posterior intracranial arterial circulation. No large vessel occlusionor significant intracranial arterial stenoses. No definable truncation of flow. No evidence of aneurysm or vascular malformation. No venous thrombosis or enhancing parenchymal lesions. CTA neck: Unremarkable aortic arch. Common and internal carotid arteries are patent bilaterally. Vertebral arteries are patent bilaterally. No occlusion, hemodynamically significant stenoses or evidence ofdissection. Visualized pulmonary apices are clear. No neck masses or adenopathy. No destructive osseous lesions. IMPRESSION: Impression: 1. No acute intracranial abnormalities. 2. Unremarkable CTA of the head and neck. This document has been electronically signed by: Efrain Doyle MD on 12/19/2024 18:44:31 Sally Nieves MD [facility] CT PROCEDURES Final Result * ECG 12 lead (12/19/2024 4:46 PM EST) [facility] Ventricular Rate ECG 75 BPM GEMUSE Atrial Rate 75 BPM GEMUSE P-R Interval 138 ms GEMUSE QRS Duration 88 ms GEMUSE Q-T Interval 392 ms GEMUSE QTc 437 ms GEMUSE P Wave Sunman 70 degrees GEMUSE R Sunman -45 degrees GEMUSE T Sunman 65 degrees GEMUSE ECG Interpretation Normal sinus rhythm Left axis deviation Abnormal ECG When compared with ECG of 08-MAY-2022 09:03, No significant change was found Confirmed by MICHAELA EVANS ([id number]) on 12/20/2024 7:45:26 PM GEMUSE 12/19/2024 4:46 PM EST 12/20/2024 7:45 PM EST us Yvonne Boo NP ECG ORDERABLES Final Result GEMUSE * (ABNORMAL) CBC auto differential (12/19/2024 3:42 PM EST) [facility] WBC 9.2 4.8 - 10.8 K/mcL LAB HEMETOLOGY METHOD 12/19/2024 4:01 PM [facility] RBC 5.10(H) 3.80 - 4.80 M/mcL LAB HEMETOLOGY METHOD 12/19/2024 4:01 PM [facility] Hemoglobin 14.2 11.5 - 16.0 g/dL LAB HEMETOLOGY METHOD 12/19/2024 4:01 PM [facility] Hematocrit 43.2 35.0 - 47.0 % LAB HEMETOLOGY METHOD 12/19/2024 4:01 PM [facility] MCV 85.0 79.0 - 98.0 FL LAB HEMETOLOGY METHOD 12/19/2024 4:01 PM [facility] MCH 28.0 27.0 - 32.0 pcg LAB HEMETOLOGY METHOD 12/19/2024 4:01 PM [facility] MCHC 32.9 32.0 - 37.0 g/dL LAB HEMETOLOGY METHOD 12/19/2024 4:01 PM [facility] RDW 13.7 11.0 - 15.0 % LAB HEMETOLOGY METHOD 12/19/2024 4:01 PM [facility] Platelets 276 130 - 400 K/mcL LAB HEMETOLOGY METHOD 12/19/2024 4:01 PM [facility] MPV 10.1 7.0 - 11.0 FL LAB HEMETOLOGY METHOD 12/19/2024 4:01 PM [facility] NRBC 0.0 <1.0 % LAB HEMETOLOGY METHOD 12/19/2024 4:01 PM [facility] NRBC Absolute 0.00 <0.10 K/mcL LAB HEMETOLOGY METHOD 12/19/2024 4:01 PM [facility] Neutrophils Relative 67.8 % LAB HEMETOLOGY METHOD 12/19/2024 4:01 PM [facility] Lymphocytes Relative 24.9 % LAB HEMETOLOGY METHOD 12/19/2024 4:01 PM [facility] Monocytes Relative 6.1 % LAB HEMETOLOGY METHOD 12/19/2024 4:01 PM [facility] Eosinophils Relative 0.4 % LAB HEMETOLOGY METHOD 12/19/2024 4:01 PM [facility] Basophils Relative 0.4 % LAB HEMETOLOGY METHOD 12/19/2024 4:01 PM [facility] Immature Granulocytes Relative 0.4 % LAB HEMETOLOGY METHOD 12/19/2024 4:01 PM [facility] Neutrophils Absolute 6.25 1.50 - 7.00 K/mcL LAB HEMETOLOGY METHOD 12/19/2024 4:01 PM [facility] Lymphocytes Absolute 2.30 1.00 - 5.00 K/mcL LAB HEMETOLOGY METHOD 12/19/2024 4:01 PM EST [facility] Monocytes Absolute 0.56 0.20 - 1.00 K/[facility] HEMETOLOGY METHOD 12/19/2024 4:01 PM [facility] Eosinophils Absolute 0.04 0.00 - 0.50 K/[facility] HEMETOLOGY METHOD 12/19/2024 4:01 PM [facility] Basophils Absolute 0.04 0.00 - 0.20 K/[facility] HEMETOLOGY METHOD 12/19/2024 4:01 PM [facility] Immature Granulocytes Absolute 0.04(H) 0.00 - 0.03 K/[facility] HEMETOLOGY METHOD 12/19/2024 4:01 PM [facility] Blood Venous blood specimen / Unknown Venipuncture / Unknown 12/19/2024 3:42 PM EST 12/19/2024 3:56 PM EST us Teto Cabrales MD LAB BLOOD ORDERABLES Final Resu lt Performing Organization Address City/[facility]/ZIP Co de Phone Number [facility] [address] [place] [address], [place] [phone] * Activated partial thromboplastin time (12/19/2024 3:42 PM EST) aPTT 30.8 24.1 - 39.3 sec LAB COAGULATION METHOD 12/19/2024 4:07 PM EST [facility] Blood Venous blood specimen / Unknown Venipuncture / Unknown 12/19/2024 3:42 PM EST 12/19/2024 3:56 PM EST us Teto Cabrales MD LAB BLOOD ORDERABLES Final Resu lt Performing Organization Address City/[facility]/ZIP Co de Phone Number [facility] [address] [place] [address], [place] [phone] * Prothrombin time with INR (12/19/2024 3:42 PM EST) Protime 11.5 10.6 - 13.9 sec LAB COAGULATION METHOD 12/19/2024 4:07 PM EST [facility] INR 0.9 LAB COAGULATION METHOD 12/19/2024 4:07 PM EST [facility] Blood Venous blood specimen / Unknown Venipuncture / Unknown 12/19/2024 3:42 PM EST 12/19/2024 3:56 PM EST us eTto Cabrales MD LAB BLOOD ORDERABLES Final Resu lt [facility] [address] [place] [address], [place] [phone] from Last 3 Months Insurance [facility] Member Subscriber Plan / Payer (Ef fective 2022-Present) Name:MILLY NAVARRETE Relation to Subscriber:Self Name:Milly Dobbins Payer ID:[id number] Group ID:[id number] Type:Not on file Address: [facility] [place] [id number] Advance Directives Documents on File Type Date Recorded Patient Customer Marketing Intern Expl anation Health Care Decision (hx) 08/26/2021 AD COOMBS DIRECTIVE Health Care Decision (hx) 08/26/2021 AD COOMBS DIRECTIVE Health Care Decision (hx) 08/26/2021 AD COOMBS DIRECTIVE * Full Code - Default (Latest Code Status on File) Date Activated Date Inactivated Comments 12/19/2024 8:19 PM 12/20/2024 3:08 PM This is orde r is used when code status has not been discussed with the patient, or code status is otherwise unknown/unconfirmed To update the patient's code status, place a code status order. Do not modify or discontinue any currently active code status orders. Care Teams Vinyl Hanger Relationship Specialty Start Date End Date Physician, Pcp Unknown PCP - General 12/19/24
--- OUTSIDE RECORDS SUMMARY | 2025-01-25 19:48 | XMS_ITS | Continuity of Care Document ---
Author Organization [place] - [facility], [facility] Address [address] [place] [address] Care Team Providers Care Loft Worker Name Role Phone MALISSA MONTALVO Primary Care Provider [phone] Assessment Encounter Date Assessment Date Assessment LastModified by Organization Details LastModified Time 11/15/2024 11/15/2024 69yo female presents for reevaluation of left-sided parotid lesion and neck pain. CT neck w/contrast on 04/12/24 at [facility] demonstrated right periparotid enlarged lymph nodes and left 12 mm parotid lesion. Biopsy of this lesion with Dr. Land at [facility] was negative for malignancy. Reassured patient regarding normal results. She endorses intermittent discomfort in this area, stable compared to prior visit. She is scheduled for swallow study at [facility] 12/22/2024, and will review results after test. Cerumen impactions removed bilaterally without difficulty. Physical examination is unremarkable without obvious lymphadenopathy or neck swelling. Will refill intranasal fluticasone and oral cetirizine as requested. She will return when convenient for formal audiometric testing. All questions answered. [email or web address] Not available 11/15/2024 16:36:04 Plan of Treatment Reminders Order Date Submit Date Provider Last Modified By Organization Details Last Modified Time Details Appointments Test Results 10 2024 02:30P M LEIA KHALIL MD Not available Not available Not available Lab None recorded. Referral None recorded. Procedures None recorded. Surgeries None recorded. Imaging None recorded. Medication Orders fluticaso ne propionat e 50 mcg/actua tion nasal spray,facundo pension 2024 025 [facility], [address] [place] [address], [address], 01/17/2025 10:50:41 cetirizin e 10 mg tablet 2024 025 [facility], [address] [place], [address], 11/28/2024 13:42:25 Patient TargetsNo targets recorded. Patient InstructionsNo instructions recorded. Reason for Referral None Reported. Results Created Date Observation Date Name Description Value Unit Range Abnormal Flag Note LastModifiedBy Organization Detail LastModifiedTime 12/14/19 25 audio gram No observ ation record ed. BARCODE Not Available 2024 18:40:21 Result Notes None recorded. Problems Name Problem SNOMED Code Status Onset Date Resolution Date Notes Provider Name and Address Organization Details Recorded Time Dizziness and giddiness 832128629 Active 2018 Dizziness and giddiness ; Note: Date Diagnosed : 04/20/2018 11:04 AM (R42) Not Available [facility] 4 02:36:48 Otorrhea of bilateral ears 67411756796 19260 Active 2018 Otorrhea, bilateral ; Note: Date Diagnosed : 09/07/2018 5:51 PM (H92.13) Not Available [facility] 4 02:36:55 Sensorine ural hearing loss of bilateral ears 019190012 Active 2018 Sensorine ural hearing loss, bilateral ; Note: Date Diagnosed : 09/07/2018 3:49 PM (H90.3) Not Available [facility] 4 02:36:51 Perforati on of left tympanic membrane 63234132599 06739 Active 2018 Unspecifi ed perforati on of tympanic membrane, left ear; Note: Date Diagnosed : 10/21/2018 3:32 PM (H72.92) Not Available [facility] 4 02:36:57 Dysphagia 58704124 Active 2020 Dysphagia , unspecifi ed; Note: Date Diagnosed : 05/17/2020 1:57 PM (R13.10) DOROTA RAMIRES PA-C [address] [place] [address],[place] [address], [place], [address] , [place] - [facility] 5 16:35:52 Impacted cerumen of bilateral ears 98245728663 51926 Active 2020 Impacted cerumen, bilateral ; Note: Date Diagnosed : 11/23/2020 3:45 PM (H61.23) DOROTA RAMIRES PA-C [address] [facility],[place] [address], [place], [address] , [place] - [facility] 5 16:35:57 Itching of skin 880153182 Active 2020 Other pruritus; Note: Date Diagnosed : 11/23/2020 3:46 PM (L29.8) Not Available [facility] 4 02:36:45 Sialoaden itis 01807297 Active 2021 Sialoaden itis, unspecifi ed; Note: Date Diagnosed : 08/27/2021 12:14 PM (K11.20) Not Available [facility] 4 02:36:55 Type 2 diabetes mellitus without complicat ion 567874136 Active 2021 Type 2 diabetes mellitus without complicat ions; Note: Date Diagnosed : 11/05/2021 4:30 PM (E11.9) Not Available [facility] 4 02:37:01 Allergic rhinitis 82104386 Active 2021 Allergic rhinitis, unspecifi ed; Note: Date Diagnosed : 2 4:55 PM (J30.9) DOROTA RAMIRES PA-C [address] [place] [address],[place] [address], [place], [address] , [place] - [facility] 5 16:07:44 Bilateral disorder of Eustachia n tubes 45634018691 88208 Active 2022 Other specified disorders of Eustachia n tube, bilateral ; Note: Date Diagnosed : 10/07/2022 10:27 AM (H69.83) Other specified disorders of Eustachia n tube, bilateral ; Note: Date Diagnosed : 04/20/2018 11:04 AM (H69.83) ; Start Date : 9 Not Available [facility] 4 02:36:53 Neck swelling 815010319 Active 2023 DOROTA RAMIRES PA-C [address] [place] [facility], [place], [address] , [facility] - [facility] 4 10:48:56 Parotitis 86807341 Active 2023 DOROTA RAMIRES PA-C [address],[place] [facility], [place], [address] , [place] - [facility] 5 16:08:59 Lesion of salivary gland 354777254 Active 2024 DOROTA RAMIRES PA-C [address] [facility] [place] [facility], [place], [address] , [facility] - [facility] 5 16:28:22 Acute serous otitis media of right ear 57694161313 67631 Active 2024 DOROTA RAMIRES PA-C [address] [facility],[place] [facility], [place], [address] , [place] - [facility] 5 11:57:18 Mixed conductiv e and sensorine ural hearing loss, bilateral 961519286 Active 2024 LINA DYE [address] [facility] [place] [address], [place], [address] , [facility] - [facility] 5 16:04:21 Bilateral tinnitus 41349509008 02 Active 2024 DOROTA RAMIRES PA-C [address] [facility],[place] [facility], [place], [address] , [facility] - [facility] 5 23:13:12 Problem Notes None recorded. Procedures Surgical History Date Name Laterality Status Provider Name and Address Organization Details Recorded Time 12/14/19 25 Tympanometry - 84206 completed LINA DYE [address] [facility] [address], [place], [address], [facility] - [facility] 12/13/2024 16:05:47 12/14/19 25 Air [employer] Bone Audio - 90868 completed TASAH ENMANUEL, AUD [address], [place], [address], [place] - [facility] 12/13/2024 16:05:37 11/16/19 25 Cerumen removal without microscope bilat completed DOROTA RAMIRES PA-C [address], [place], [address], [place] - [facility] 11/15/2024 16:27:21 06/14/19 25 Cerumen removal without microscope bilat completed DOROTA RAMIRES PA-C [address], [place], [address], [place] [facility] 06/13/2024 16:03:11 04/21/19 25 Nasal Endoscopy completed DOROTA RAMIRES PA-C [address], [place], [address], [place] - [facility] 04/20/2024 11:54:44 02/28/19 25 Cerumen removal without microscope bilat completed DOROTA RAMIRES PA-C [address] [facility] [address] [address], [place], [address], [place] [facility] 02/29/2024 14:05:46 Imaging Results None recorded. Procedure Notes None recorded. Medical Equipment None Reported. Allergies Allergen ID Allergen Name Allergen Category Reaction Reaction Severity Criticality Documentation Date Start Date Code Code System Note Provider Name and Address Organization Details Recorded Time 69155 penicilli n V potassium medicatio n other Not available Not available 06/30/202300615 5 RxNorm React ion: unkno wn, unspe cifie d;; Not Available [facility] 4 01:02:14 86313 Substance with sulfonami de structure and antibacte rial mechanism of action (substanc e) medicatio n other Not available Not available 06/30/2023 15705 8003 SNOMED React ion: unkno wn, unspe cifie d;; Not Available [facility] 4 01:02:17 Medications Name Sig Start Date Stop Date Status Note LastModified by Organization Details LastModified Time cyclobenz aprine 10 mg tablet TAKE 1 TABLET BY MOUTH TWICE DAILY NEEDED FOR MUSCLE SPASM FOR 30 DAYS active Not Available Not Available No t Available atorvasta tin 40 mg tablet 2021 active Medicati on ID: 357543 B rand Name: atorvast atin Sen d Method: E-Prescr ibed Sub s Allowed: subs OK Medic ationGen ericName : atorvast atin Not Available Not Available Not Available BD Alcohol Swabs 02/02 completed Medicati on ID: 148360 B rand Name: BD Alcohol Swabs Se nd Method: E-Prescr ibed Sub s Allowed: subs OK Medic ationGen ericName : BD Alcohol Swabs Not Available Not Available Not Available acetamino phen 325 mg tablet active Not Available Not Available No t Available nicotine 14 mg/24 hr daily transderm al patch 2021 active Medicati on ID: 016533 B rand Name: nicotine Send Method: E-Prescr ibed Sub s Allowed: subs OK Medic ationGen ericName : nicotine Not Available Not Available Not Available nabumeton e 750 mg tablet 08/27 completed Medicati on ID: [id number] D uration Value: 30 Brand Name: nabumeto [...] as directed 2021 active Medicati on ID: 203921 D uration Value: 1 Prescri bed By [...] 28 gauge 2021 active Medicati on ID: 869948 B rand Name: FreeStyl e Lancets Send Method: E-Prescr ibed Sub s Allowed: subs OK Medic ationGen ericName : FreeStyl e Lancets Not Available Not Available Not Available prednison e 20 mg tablet 02/02 completed Not Available Not Available Not Available Medrol 32 mg tablet Take 1 tablet by mouth as directed 02/02 completed Medicati on ID: [id number] D uration Value: 1 Prescri bed By [...] mg tablet 10/07 completed Medicati on ID: [id number] B rand Name: metronid azole Se nd Method: E-Prescr ibed Sub s Allowed: subs OK Medic ationGen ericName : metronid azole Not Available Not Available Not Available omeprazol e 40 mg capsule,d elayed release 08/27 completed Medicati on ID: [id number] D uration Value: 90 Brand Name: omeprazo le Send Method: E-Prescr ibed Sub s Allowed: subs OK Medic ationGen ericName : omeprazo le Not Available Not Available Not Available tramadol 50 mg tablet 2021 active Medicati on ID: [id number] B rand Name: tramadol Send Method: E-Prescr ibed Sub s Allowed: subs OK Medic ationGen ericName : tramadol Not Available Not Available Not Available acetamino phen 500 mg tablet 10/07 completed Medicati on ID: 900844 B rand Name: acetamin ophen Se nd [...] mg tablet 10/07 completed Medicati on ID: [id number] B rand Name: dexameth asone Se nd Method: E-Prescr ibed Sub s Allowed: subs OK Medic ationGen ericName : dexameth asone Not Available Not Available Not Available glimepiri de 4 mg tablet 08/27 completed Medicati on ID: [id number] D uration Value: 30 Brand Name: glimepir madeline Send Method: E-Prescr ibed Sub s Allowed: subs OK Speci al Instruct ion: TK 1 T PO D Medica tionGene ricName: glimepir madeline Not Available Not Available Not Available gabapenti n 300 mg capsule active Medicati on ID: [id number] B rand Name: gabapent in Send Method: [...] Available Not Available No t Available levofloxa uszie 500 mg tablet 10/07 completed Medicati on ID: [id number] B rand Name: levoflox acin Sen d [...] e 50 mcg/actua tion nasal spray,facundo pension [place] 2 sprays every day by intranas al route as directed for 42 days, for environm ental allergie s. 2024 active Not Available Not Available Not Avai lable metformin ER 500 mg tablet,ex tended release 24 hr 2021 active Medicati on ID: 505273 B rand Name: metformi n Send Method: E-Prescr ibed Sub s Allowed: subs OK Medic ationGen ericName : metformi n Not Available Not Available Not Available loratadin e 10 mg tablet active Not Available Not Available Not Available naproxen 500 mg tablet 10/07 completed Medicati on ID: 946836 B rand Name: naproxen Send Method: E-Prescr [...] e Hcl 08/27 completed Medicati on ID: [id number] D uration Value: 90 Brand Name: ranitidi [...] 2 drop 08/27 completed Medicati on ID: [id number] P rescribe d By Name: ANUPAM Lawson nd Name: DermOtic Oil Send Method: E-Prescr ibed Sub s Allowed: subs OK Medic ationGen ericName : DermOtic Oil Not Available Not Available Not Available quetiapin e 50 mg tablet active Not Available Not Available Not Available FreeStyle Lite Strips 2021 active Medicati on ID: 847443 B rand Name: FreeStyl e Lite Strips [...] Available Not Available Not Available Dexcom G7 Yoke Setter active Not Available Not Available Not Available FreeStyle Marilia 2 Plus Sensor device USE DIRECTED FOR DIABETES CONTROL AND CHANGE EVERY 15 DAYS. E11.9 active Not Available Not Available No t Available Vitals Date Recorded Body height Body mass index (BMI) Body weight Provider Name and Address Organization Details Last Updated DateTime 11/15/2024 147.32 cm 30.3 kg/m2 36487.89 g Vivien Nunez [place] - [facility] 11/15/2024 15:31:32 Social History None recorded. Functional Status None recorded. Mental Status None recorded. Family History Nothing Reported. Medical History Condition Response Hearing Loss Y Allergies/Hayfever Y Diabetes Y Hypertension Y Gynecological HistoryNo gynecological history recorded. Obstetrics History GPAL:G 0 P 0 0 0 0 Past Encounters Encounter ID Performer Location Encounter Start Date Encounter Closed Date Diagnosis/Indication Diagnosis SNOMED-CT Code Diagnosis ICD10 Code Diagnosis IMO Codes Diagnosis Note [id number] DOROTA RAMIRES PA-C [facility] [address] [address] 11/15/2024 15:24:38 11/15/2024 16:13:59 Allergic rhinitis 92350925 J30.9 Lesion of salivary gland 665161590 K11.9 Dysphagia 90713747 R13.1 0 Scheduled for swallow study 12/22/24 Impacted c erumen of bilateral ears 2683146678 491065 H61.23 342951 Health Concerns Section Related Observation LastModified by Organization Detai ls LastModified Time None Recorded Concern Status LastModified by Organization Details LastModified Time None Recorded Payers Encounter Date Sequence Insurance Name Policy Number Policy Pandey Covered Member ID Pandey Member ID Guarantor Name 11/15/2024 1 [facility] - DOS ON OR AFTER 2022 - ONE CARE (MEDICARE REPLACEMENT/AD VANTAGE - HMO) Ayaka Navarrete [id number] Ayaka Navarrete Notes Date Note Type Note Provider Name and Address Organization Details Recorded Time 11/15/2024 text/html ROS as noted in the HPI 69yo female presents for reevaluation of left-sided parotitis and neck pain. CT neck w/contrast on 04/12/24 at [facility] demonstrated right periparotid enlarged lymph nodes and left 12 mm parotid lesion. She had biopsy of a parotid lesion 05/05/[address] Guallpa, which was nondiagnostic. She has since had a biopsy with Dr. Land at [facility], which was negative for malignancy. She endorses intermittent discomfort in this area, stable compared to prior visit. CHRISTIANA GUALLPA MD [address] [place] [address], [phone], [facility] - [facility] 11/16/2024 09:50:34 OBGyn Episode No OBEpisode recorded.
--- OUTSIDE RECORDS SUMMARY | 2025-01-25 19:48 | XMS_ITS | Clinical Summary ---
Author Organization [facility] Address [address] [place] [address] Phone Care Team Providers Care Congregational Care Pastor Name Role Phone Pcp, Unknown Primary Care [...] file Medical Devices Not on file [facility] [place] [id number] [facility] MEDICARE REPLACEMENT [facility] MEDICARE REPLACEMENT [facility] MEDICARE REPLACEMENT [facility] MEDICARE [place] [address] [place] [address] MEDICARE REPLACEMENT Care Teams Congregational Care Pastor Relationship Specialty Start Date End Date Pcp, Unknown PCP - General 05/11/24 Additional Source Comments The information contained in this document represents components of the legal health record. It is not the complete legal health record.[facility]
== END 2025-01-25 13:40 | disposition home or self-care (01) ==
LOC: HO.RHES 12:52
PROVIDERS: Visit Provider Student in an Organized Health Care Education/Training Program
DX: M19.90 Unspecified osteoarthritis, unspecified site (principal); M25.50 Pain in unspecified joint; R20.0 Anesthesia of skin; R20.2 Paresthesia of skin; R76.89 Other specified abnormal immunological findings in serum
CPT/HCPCS: 99204

== ENCOUNTER → 2025-01-25 12:51 | Outpatient (BNVA) | payer OTHER, SELFPAY | PROVIDERS: Visit Provider Student in an Organized Health Care Education/Training Program | DX: M79.7 Fibromyalgia (principal); M17.0 Bilateral primary osteoarthritis of knee; R20.0 Anesthesia of skin; R20.2 Paresthesia of skin; F17.210 Nicotine dependence, cigarettes, uncomplicated | CPT/HCPCS: 99202 ==